=== PATIENT | male | born 1975 | race Caucasian/White ===

== ENCOUNTER 2023-01-02 09:16 | Emergency (ER) | payer OTHER, SELFPAY ==
[2023-01-02 09:26] VITALS: BP 129/71; PULSE 90; RESP 16; TEMP 36.4; O2SAT 99
--- NOTE | 2023-01-02 09:55 | ED.NAVMDI ---
HPI - Nausea/Vomiting/Diarrhea General Chief complaint: Nausea/Vomiting/Diarrhea Stated complaint: Abdominal Pain/Diarrhea Source: patient and RN notes reviewed Limitations: no limitations History of Present Illness HPI Narrative: Patient is a 47-year-old male who presents to the [facility] with complaints of abdominal cramping and diarrhea for the past 4 days. Patient states that he experienced a low-grade fever of 99.4? F and nausea on the 1st day but has not had any nausea since. He denies vomiting. Denies recent fevers. Denies urinary complaints. Denies blood in the stool. Patient states that the abdominal cramping is intermittent but moderately severe when present. He reports multiple episodes of diarrhea. States that his stool is now green. He reports history of IBS and colitis. States that last time he had similar symptoms he was diagnosed with colitis and prescribed Flagyl. Patient states that the symptoms were much improved after taking the medication. Related Data Home Medications Medication Instructions Recorded Confirmed aspirin 81 mg tablet,delayed 81 mg PO DAILY 01/02/23 01/02/23 release citalopram 20 mg tablet 30 mg PO DAILY 01/02/23 01/02/23 diltiazem HCl 120 mg 120 mg PO DAILY 01/02/23 01/02/23 capsule,extended release 24 hr, controlled (DILT-XR) enalapril maleate 10 mg tablet 10 mg PO DAILY 01/02/23 01/02/23 omeprazole 20 mg capsule,delayed 20 mg PO BID 01/02/23 01/02/23 release rosuvastatin 20 mg tablet 20 mg PO HS 01/02/23 01/02/23 sildenafil 50 mg tablet 50 mg PO PRN PRN Erectile 01/02/23 01/02/23 Dysfunction sirolimus 0.5 mg tablet 0.5 mg PO EVERY OTHER DAY 01/02/23 01/02/23 tacrolimus 0.5 mg capsule, 0.5 mg PO BID 01/02/23 01/02/23 immediate-release ticagrelor 90 mg tablet (Brilinta) 90 mg PO BID 01/02/23 01/02/23 Allergies Allergy/AdvReac Type Severity Reaction Status Date / Time Penicillins Allergy Unknown Rash Verified 01/02/23 09:32 Review of Systems Review of Systems: CONSTITUTIONAL: Denies fever, chills, or sweats. EYES: Denies visual changes, redness, or discharge. ENT: Denies otalgia and sore throat CARDIOVASCULAR: Denies chest pain, palpitations, or edema. RESPIRATORY: Denies cough or dyspnea. GASTROINTESTINAL: Reports abdominal pain and diarrhea. Denies nausea and vomiting. GENITOURINARY: Denies dysuria or hematuria. SKIN: Denies rash or itching. MUSCULOSKELETAL: Denies back pain, joint pain, or myalgia. NEUROLOGIC: Denies headache, numbness, or weakness. Pertinent positives per HPI. PMFSH Comments At the time of my signature, I reviewed and agree with the nursing past medical, surgical, social, and family history. There is no relevant family history pertinent to the patient complaint. Exam Narrative: GENERAL: This is a well-nourished, well-developed patient, in no apparent distress. HEAD: normocephalic, atraumatic. EYES: Sclera clear/white. Vision is grossly intact. EARS: External ears normal, auditory canals clear and without drainage. Hearing grossly intact. NOSE: External nose normal with no obvious nasal discharge, nares without redness, no rhinorrhea. THROAT: Mucous membranes moist, posterior pharynx clear. NECK: Neck supple, non-tender without lymphadenopathy, masses or thyromegaly. CARDIOVASCULAR: Regular rate and rhythm without murmurs, gallops, or rubs. RESPIRATORY: Clear to auscultation. Breath sounds equal bilaterally. No wheezes, rales, or rhonchi. GASTROINTESTINAL: Abdomen soft, non-tender, nondistended. Bowel sounds are hyperactive. No hepato-splenomegaly, or palpable masses. No guarding. SKIN: warm, intact with no suspicious lesions or rash, good texture and turgor. NEURO: awake, alert, and oriented to person, place and time. There were no obvious focal neurologic abnormalities. BACK: Nontender without deformity or crepitance. No flank tenderness. Course Course Level of Care: Express Care Visit Vital Signs Vital signs: Vital Sign
== END 2023-01-02 09:58 | disposition home or self-care (01) ==
PROVIDERS: Emergency Provider Nurse Practitioner; PCP Internal Medicine
DX: K52.9 Noninfective gastroenteritis and colitis, unspecified (principal); E78.00 Pure hypercholesterolemia, unspecified; I10 Essential (primary) hypertension; K21.9 Gastro-esophageal reflux disease without esophagitis; Z94.1 Heart transplant status; F41.9 Anxiety disorder, unspecified; Z79.82 Long term (current) use of aspirin
CPT/HCPCS: 99203; G0463

== ENCOUNTER 2023-05-29 13:27 | Emergency (ER) | payer OTHER, SELFPAY ==
[2023-05-29 13:33] VITALS: BP 129/71; PULSE 77; RESP 18; TEMP 36.6; O2SAT 96
[2023-05-29 13:48] VITALS: BP 129/71; PULSE 77; RESP 18; TEMP 36.6; O2SAT 96
--- NOTE | 2023-05-29 13:49 | ED.URI ---
HPI - URI/Sore Throat General Chief Complaint: Upper Respiratory Infection Stated Complaint: cough /chest hills Time Seen by Provider: 05/29/23 13:49 Source: patient, RN notes reviewed and old records reviewed Mode of arrival: ambulatory Limitations: no limitations History of Present Illness HPI Narrative: 48 year old male presents to express care with complaints of 2 week duration of cough, patient denies any shortness of breath at rest but admits to some with exertion, states chest hills with cough.amd he has noted some wheezing. Patient reports that he is taking Clindamycin for dental extractions of 6 teeth which was done 2 days ago. Patient reports that initially he had nasal congestion and drainage but that has improved, denies any fevers. or body aches. Patient states that he is scheduled to have coronary stents placed on June 12 at [facility]. Patient had heart transplant in 2004 and is on antirejection medications. MD elicited complaint: cough Pertinent past history: immunosuppression and other (heart transplant, cardiac stents) Onset (ago): week(s) (2) Able to tolerate fluids by mouth: Yes Treatments prior to arrival: other (Presently taking clindamycin for tooth extraction, inhalers as prescribed.) Related Data Home Medications Medication Instructions Recorded Confirmed aspirin 81 mg tablet,delayed 81 mg PO DAILY 01/02/23 05/29/23 release citalopram 20 mg tablet 30 mg PO DAILY 01/02/23 05/29/23 diltiazem HCl 120 mg 120 mg PO DAILY 01/02/23 05/29/23 capsule,extended release 24 hr, controlled (DILT-XR) enalapril maleate 10 mg tablet 10 mg PO DAILY 01/02/23 05/29/23 omeprazole 20 mg capsule,delayed 20 mg PO BID 01/02/23 05/29/23 release rosuvastatin 20 mg tablet 20 mg PO HS 01/02/23 05/29/23 sildenafil 50 mg tablet 50 mg PO PRN PRN Erectile 01/02/23 05/29/23 Dysfunction sirolimus 0.5 mg tablet 0.5 mg PO EVERY OTHER DAY 01/02/23 05/29/23 tacrolimus 0.5 mg capsule, 0.5 mg PO BID 01/02/23 05/29/23 immediate-release ticagrelor 90 mg tablet (Brilinta) 90 mg PO BID 01/02/23 05/29/23 albuterol sulfate 90 mcg/actuation See Rx Instructions .Route 05/29/23 05/29/23 aerosol inhaler .COMPLEX PRN sob clindamycin HCl 150 mg capsule See Rx Instructions .Route .COMPLEX 05/29/23 05/29/23 Allergies Allergy/AdvReac Type Severity Reaction Status Date / Time Penicillins Allergy Unknown Rash Verified 05/29/23 13:34 Review of Systems Review of Systems: CONSTITUTIONAL: Denies malaise, chills, sweats, or fever. EYES: Denies visual changes, redness, or discharge. ENT: Reports rhinorrhea, congestion, sinus pain,no otalgia and no sore throat. CARDIOVASCULAR: Denies chest pain, palpitations, or edema. RESPIRATORY: Reports cough.? Denies dyspnea at rest, reports dyspnea with exertion, states chest hills with cough GASTROINTESTINAL: Denies abdominal pain, nausea, vomiting, diarrhea SKIN: Denies rash or itching. MUSCULOSKELETAL: Denies myalgia. NEUROLOGIC: Denies headache. All systems reviewed & are unremarkable except as noted in HPI and below PMFSH Past Medical History Medical History (Updated 05/30/23 @ 20:07 by Hilda Beard NP) Anxiety Asthma Elevated cholesterol GERD (gastroesophageal reflux disease) Hypertension Irritable bowel Surgical History Surgical History (Updated 05/30/23 @ 20:05 by Hilda Beard NP) Heart transplanted 2004 History of heart artery stent Social History Social History (Updated 05/30/23 @ 20:07 by Hilda Beard NP) Smoking packs per day: 1 Smoking cigarettes per day: 20.0 Years smoked: 3 Smoking pack-years: 3.00 Smoking status: Current every day smoker Alcohol intake: current Alcohol use details: rare social Substance use type: does not use Gender identity (if verbalized by the patient): Male Comments At time of signature, agree with nursing past medical, surgical, social and family history. There is no relevant family histor
== END 2023-05-29 14:20 | disposition home or self-care (01) ==
PROVIDERS: Emergency Provider Registered Nurse; PCP Internal Medicine
DX: J40 Bronchitis, not specified as acute or chronic (principal); F17.210 Nicotine dependence, cigarettes, uncomplicated; J45.909 Unspecified asthma, uncomplicated; E78.00 Pure hypercholesterolemia, unspecified; K21.9 Gastro-esophageal reflux disease without esophagitis; I10 Essential (primary) hypertension; Z94.1 Heart transplant status; Z79.82 Long term (current) use of aspirin
CPT/HCPCS: 99213; G0463

== ENCOUNTER 2023-12-05 08:31 | Emergency (ER) | payer OTHER, SELFPAY ==
[2023-12-05 08:45] VITALS: BP 111/76; PULSE 81; RESP 16; TEMP 36.6; O2SAT 100
--- NOTE | 2023-12-05 08:54 | ED.DENTAL ---
HPI - Dental/Oral General Chief complaint: Dental/Oral Stated complaint: Swollen tongue Source: patient, RN notes reviewed and old records reviewed Mode of arrival: ambulatory Limitations: no limitations History of Present Illness HPI Narrative: 48 year old male presents to express care with complaints of noting his tongue to be swollen this morning with right side greater than left. Patient reports that he is not having any difficulty swallowing or any difficulty breathing. Patient reports that the only thing new that he can think of was he tried some Guacamole last night. Patient denies any cough or any sinus congestion or drainage, no sore throat or any ear pain. Patient reports that he is scheduled for routine heart cath procedure on the for evaluation of his transplanted heart which was received in 2004. Patient is edentulous no trismus or Uzair angina noted. Onset (ago): hour(s) (this morning) Duration: constant Treatment prior to arrival: none Related Data Home Medications Medication Instructions Recorded Confirmed aspirin 81 mg tablet,delayed 81 mg PO DAILY 01/02/23 05/29/23 release citalopram 20 mg tablet 30 mg PO DAILY 01/02/23 05/29/23 diltiazem HCl 120 mg 120 mg PO DAILY 01/02/23 05/29/23 capsule,extended release 24 hr, controlled (DILT-XR) enalapril maleate 10 mg tablet 10 mg PO DAILY 01/02/23 05/29/23 omeprazole 20 mg capsule,delayed 20 mg PO BID 01/02/23 05/29/23 release rosuvastatin 20 mg tablet 20 mg PO HS 01/02/23 05/29/23 sildenafil 50 mg tablet 50 mg PO PRN PRN Erectile 01/02/23 05/29/23 Dysfunction sirolimus 0.5 mg tablet 0.5 mg PO EVERY OTHER DAY 01/02/23 05/29/23 tacrolimus 0.5 mg capsule, 0.5 mg PO BID 01/02/23 05/29/23 immediate-release ticagrelor 90 mg tablet (Brilinta) 90 mg PO BID 01/02/23 05/29/23 albuterol sulfate 90 mcg/actuation See Rx Instructions .Route 05/29/23 05/29/23 aerosol inhaler .COMPLEX PRN sob Allergies Allergy/AdvReac Type Severity Reaction Status Date / Time Penicillins Allergy Unknown Rash Verified 05/29/23 13:34 Review of Systems Review of Systems: CONSTITUTIONAL: Denies fever, chills, or sweats. EYES: Denies visual changes, redness, or discharge. ENT: Denies rhinorrhea, congestion, sore throat, or otalgia.tongue swelling sine this morning CARDIOVASCULAR: Denies chest pain, palpitations, or edema. RESPIRATORY: Denies cough or dyspnea. GASTROINTESTINAL: Denies abdominal pain, nausea, vomiting, or diarrhea. GENITOURINARY: Denies dysuria or hematuria. SKIN: Denies rash or itching. MUSCULOSKELETAL: Denies back pain, joint pain, or myalgia. NEUROLOGIC: Denies headache, numbness, or weakness. PSYCHIATRIC: Positive for history of anxiety or depression. All systems reviewed & are unremarkable except as noted in HPI and below PMFSH Past Medical History Medical History (Updated 12/06/23 @ 00:00 by Noemy Bermudez) Anxiety Asthma Elevated cholesterol GERD (gastroesophageal reflux disease) Hypertension Irritable bowel Leukemia Surgical History Surgical History (Updated 05/30/23 @ 20:05 by Hilda Beard NP) Heart transplanted 2004 History of heart artery stent Social History Social History (Updated 05/30/23 @ 20:07 by Hilda Beard NP) Smoking packs per day: 1 Smoking cigarettes per day: 20.0 Years smoked: 3 Smoking pack-years: 3.00 Smoking status: Current every day smoker Alcohol intake: current Alcohol use details: rare social Substance use type: does not use Gender identity (if verbalized by the patient): Male Comments At time of signature, agree with nursing past medical, surgical, social and family history. There is no relevant family history pertinent to the presenting complaint Exam Narrative: GENERAL: Well-appearing, well-nourished, and in no acute distress. HEAD: Normocephalic, atraumatic. EYES: PERRLA and EOMI. ENT: Nares clear, no rhinorrhea or epistaxis. Mucous membranes moist.TM's charlette
== END 2023-12-05 09:25 | disposition home or self-care (01) ==
PROVIDERS: Emergency Provider Registered Nurse; PCP Internal Medicine
DX: K14.9 Disease of tongue, unspecified (principal); F17.200 Nicotine dependence, unspecified, uncomplicated; J45.909 Unspecified asthma, uncomplicated; E78.00 Pure hypercholesterolemia, unspecified; I10 Essential (primary) hypertension; F41.9 Anxiety disorder, unspecified; F32.A Depression, unspecified; Z79.82 Long term (current) use of aspirin; Z94.1 Heart transplant status; Z95.5 Presence of coronary angioplasty implant and graft; C95.90 Leukemia, unspecified not having achieved remission
CPT/HCPCS: 99213; G0463

== ENCOUNTER 2024-02-15 10:18 | Emergency (ER) | payer OTHER, SELFPAY ==
[2024-02-15 10:30] VITALS: BP 107/70; PULSE 76; RESP 18; TEMP 36.8; O2SAT 99
--- NOTE | 2024-02-15 10:40 | ED.URI ---
HPI - URI/Sore Throat General Chief Complaint: Upper Respiratory Infection Stated Complaint: throat/chills History of Present Illness HPI Narrative: 49y/o male presented for complaint of sore throat and chills for about 4 days. Endorses painful swallow, able to maintain secretions. Denies sinus congestion, cough, nausea, vomiting, diarrhea or lethargy. Took tylenol. Related Data Home Medications Medication Instructions Recorded Confirmed aspirin 81 mg tablet,delayed 81 mg PO DAILY 01/02/23 02/15/24 release citalopram 20 mg tablet 30 mg PO DAILY 01/02/23 02/15/24 diltiazem HCl 120 mg 120 mg PO DAILY 01/02/23 02/15/24 capsule,extended release 24 hr, controlled (DILT-XR) enalapril maleate 10 mg tablet 10 mg PO DAILY 01/02/23 02/15/24 omeprazole 20 mg capsule,delayed 20 mg PO BID 01/02/23 02/15/24 release rosuvastatin 20 mg tablet 20 mg PO HS 01/02/23 02/15/24 sildenafil 50 mg tablet 50 mg PO PRN PRN Erectile 01/02/23 02/15/24 Dysfunction sirolimus 0.5 mg tablet 0.5 mg PO EVERY OTHER DAY 01/02/23 02/15/24 tacrolimus 0.5 mg capsule, 0.5 mg PO BID 01/02/23 02/15/24 immediate-release ticagrelor 90 mg tablet (Brilinta) 90 mg PO BID 01/02/23 02/15/24 albuterol sulfate 90 mcg/actuation See Rx Instructions .Route 05/29/23 02/15/24 aerosol inhaler .COMPLEX PRN sob Allergies Allergy/AdvReac Type Severity Reaction Status Date / Time Penicillins Allergy Unknown Rash Verified 02/15/24 10:30 Review of Systems Review of Systems: CONSTITUTIONAL: reports fever, chills EYES: Denies visual changes, redness, or discharge. ENT: Denies rhinorrhea, congestion, or otalgia.Reports sore throat CARDIOVASCULAR: Denies chest pain, palpitations, or edema. RESPIRATORY: Denies dyspnea. GASTROINTESTINAL: Denies abdominal pain, nausea, vomiting, or diarrhea. SKIN: Denies rash, itching, or wounds. MUSCULOSKELETAL: Denies back pain, joint pain, or myalgia. NEUROLOGIC: Denies headache PMFSH Past Medical History Medical History Anxiety Asthma Elevated cholesterol GERD (gastroesophageal reflux disease) Hypertension Irritable bowel Leukemia Surgical History Surgical History Heart transplanted 2004 History of heart artery stent Social History Social History Smoking packs per day: 1 Smoking cigarettes per day: 20.0 Years smoked: 3 Smoking pack-years: 3.00 Smoking status: Current every day smoker Alcohol intake: current Alcohol use details: rare social Substance use type: does not use Gender identity (if verbalized by the patient): Male Exam Narrative: GENERAL: well-appearing, no acute distress. EYES: conjunctivae clear ENT: Mucous membranes moist. TM unable to visualize bilaterally due to excess cerumen; no tragal tenderness. Oropharynx severely erythematous, Tonsils enlarged 2+ without exudate. No drooling, no hoarseness, no trismus, uvula midline. No tripod positioning, hot potato voice, or soft palate swelling. NECK: Supple. No lymphadenopathy CHEST: Clear to auscultation, breath sounds equal. No respiratory distress, speaks in full sentences. HEART: Regular rate and rhythm. No murmur heard. SKIN: Warm, dry, no rash. NEURO: Alert and oriented x3. Course Course Emergency Course: Patient is aware of diagnosis, understands and agrees to treatment plan. Anticipatory guidance given. Patient agrees to follow-up as directed and is aware of reasons to seek care at the emergency department. Portions of this record may have been created with voice recognition software Level of Care: Express Care Visit MDM - URI/Sore Throat MDM Narrative Medical decision making narrative: POS strep result reviewed with pt. Advise supportive treatments. Patient is appropriate for outpatient treatment and follow-up. Differential Paula
== END 2024-02-15 10:52 | disposition home or self-care (01) ==
PROVIDERS: Emergency Provider Nurse Practitioner Family; PCP Internal Medicine
DX: J02.0 Streptococcal pharyngitis (principal); F17.210 Nicotine dependence, cigarettes, uncomplicated; J45.909 Unspecified asthma, uncomplicated; K21.9 Gastro-esophageal reflux disease without esophagitis; I10 Essential (primary) hypertension; F41.9 Anxiety disorder, unspecified; Z94.1 Heart transplant status; Z95.5 Presence of coronary angioplasty implant and graft; Z85.6 Personal history of leukemia
CPT/HCPCS: 87880; 99213; G0463

== ENCOUNTER 2024-04-10 14:07 | Emergency (ER) | payer OTHER, SELFPAY ==
[2024-04-10 14:10] VITALS: BP 116/75; PULSE 78; RESP 20; TEMP 36.8; O2SAT 99
--- NOTE | 2024-04-10 14:16 | ED.URI ---
HPI - URI/Sore Throat General Chief Complaint: Upper Respiratory Infection Stated Complaint: chest cold/wheezing Time Seen by Provider: 04/10/24 14:17 Source: patient, RN notes reviewed and old records reviewed Mode of arrival: ambulatory Limitations: no limitations History of Present Illness HPI Narrative: 49 year old male who presents to express care with complaints of chest cold with cough and wheezing with cough sounding loose but he is unable to cough any thing up for the past 2 weeks.. Patient reports that he has noted some wheezing especially at night, has some head congestion also which is lingering. Patient reports that he has been taking Tylenol cold and flu and using his inhaler without resolution in his symptoms.Patient denies any body aches, recent fevers, chills or sweats. Patient reports that his has also been ill. He has had heart transplant and is on immunosuppressive medications. Patient states that his back hurts some from cough.. MD elicited complaint: cough and sore throat Pertinent past history: immunosuppression (heart transplant) Onset (ago): week(s) (2) Consistency: constant Severity: moderate Able to tolerate fluids by mouth: Yes Exacerbating factors: other (cough) Treatments prior to arrival: other (Tylenol cold and flu and inhaler) Related Data Home Medications Medication Instructions Recorded Confirmed aspirin 81 mg tablet,delayed 81 mg PO DAILY 01/02/23 04/10/24 release citalopram 20 mg tablet 30 mg PO DAILY 01/02/23 04/10/24 diltiazem HCl 120 mg 120 mg PO DAILY 01/02/23 04/10/24 capsule,extended release 24 hr, controlled (DILT-XR) enalapril maleate 10 mg tablet 10 mg PO DAILY 01/02/23 04/10/24 omeprazole 20 mg capsule,delayed 20 mg PO BID 01/02/23 04/10/24 release rosuvastatin 20 mg tablet 20 mg PO HS 01/02/23 04/10/24 sildenafil 50 mg tablet 50 mg PO PRN PRN Erectile 01/02/23 04/10/24 Dysfunction sirolimus 0.5 mg tablet 0.5 mg PO EVERY OTHER DAY 01/02/23 04/10/24 tacrolimus 0.5 mg capsule, 0.5 mg PO BID 01/02/23 04/10/24 immediate-release ticagrelor 90 mg tablet (Brilinta) 90 mg PO BID 01/02/23 04/10/24 albuterol sulfate 90 mcg/actuation See Rx Instructions .Route 05/29/23 04/10/24 aerosol inhaler .COMPLEX PRN sob Allergies Allergy/AdvReac Type Severity Reaction Status Date / Time Penicillins Allergy Unknown Rash Verified 02/15/24 10:30 Review of Systems Review of Systems: CONSTITUTIONAL: Denies malaise, chills, sweats, or fever. EYES: Denies visual changes, redness, or discharge. ENT: Reports rhinorrhea, congestion, sinus pain,no otalgia and no sore throat. CARDIOVASCULAR: Denies chest pain, palpitations, or edema. RESPIRATORY: Reports cough.? Denies dyspnea.stats back hurts some from coughing GASTROINTESTINAL: Denies abdominal pain, nausea, vomiting, diarrhea SKIN: Denies rash or itching. MUSCULOSKELETAL: Denies myalgia. NEUROLOGIC: Denies headache. All systems reviewed & are unremarkable except as noted in HPI and below PMFSH Past Medical History Medical History Anxiety Asthma Elevated cholesterol GERD (gastroesophageal reflux disease) Hypertension Irritable bowel Leukemia Surgical History Surgical History Heart transplanted 2004 History of heart artery stent Social History Social History (Updated 04/11/24 @ 11:05 by Hilda Beard NP) Smoking packs per day: 1 Smoking cigarettes per day: 20.0 Years smoked: 8 Smoking pack-years: 8.00 Smoking status: Current every day smoker Alcohol intake: current Alcohol use details: rare social Substance use type: does not use Living arrangements: with family Gender identity (if verbalized by the patient): Male Comments At time of signature, agree with nursing past medical, surgical, social and family history. There is no relevant family history pertinent to
[2024-04-10 14:21] VITALS: BP 116/75; PULSE 78; RESP 20; TEMP 36.8; O2SAT 99
== END 2024-04-10 14:35 | disposition home or self-care (01) ==
PROVIDERS: Emergency Provider Registered Nurse; PCP Internal Medicine
DX: J40 Bronchitis, not specified as acute or chronic (principal); F17.210 Nicotine dependence, cigarettes, uncomplicated; J45.909 Unspecified asthma, uncomplicated; E78.00 Pure hypercholesterolemia, unspecified; K21.9 Gastro-esophageal reflux disease without esophagitis; I10 Essential (primary) hypertension; F41.9 Anxiety disorder, unspecified; Z95.5 Presence of coronary angioplasty implant and graft; Z94.1 Heart transplant status; Z85.6 Personal history of leukemia
CPT/HCPCS: 99213; G0463

== ENCOUNTER 2024-10-08 11:01 | Emergency (ER) | payer MEDICARE, MEDICAID, SELFPAY ==
--- OUTSIDE RECORDS SUMMARY | 2024-10-08 11:05 | XMS_ITS | Encounter Summary ---
Author Organization [facility] Address [address] [place] [address] Phone Care Team Providers Care Movie Projectionist Name Role Phone Abhay Plascencia MD Primary Care Provider [phone] Bhavesh Chin RN Unavailable [phone] Analilia Harris MD Unavailable [phone] Encounter Details Date Type Department Care Team (Late st Contact Info) Description 05/19/2023 Telephone [facility] Cardiology [address] [facility] 8th [place] [address] [place] [address] Avani Razo Social History Tobacco Use Types Packs/Day Years Used Date Smoking Tobacco: Every Day Cigarettes 0.5 1 Smokeless Tobacco: Never AUDIT-C Answer Date Recorded Q1: How often do you have a drink containing alc ohol? Monthly or less 05/13/2022 Q2: How many drinks containi ng alcohol do you have on a typical day when you are drinking? 1 or 2 05/13/2022 Q3: How often do you have si x or more drinks on one occasion? 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
--- OUTSIDE RECORDS SUMMARY | 2024-10-08 11:05 | XMS_ITS | Encounter Summary ---
Author Organization [facility] Address [address] [place] [address] Phone Care Team Providers Care Parcel Contractor Name Role Phone Abhay Plascencia MD Primary Care Provider Aguilar Novoa MD Unavailable Sanjay Ingram MD Unavailable Reason for Visit * Reason Comments Medication Refill Encounter Details Date Type Department Care Team (Late st Contact Info) Description 06/12/2020 Refill [facility] - Internal Medicine - [place] [address] [place] [address] Abhay Plascencia MD [address] [facility] [place] [address] Medication Refill Social History Tobacco Use Types Packs/Day Years Used Date Smoking Tobacco: Former Cigarettes Q uit: 09/16/2016 Smokeless Tobacco: Never Alcohol Use Standard Drinks/Week Comments Yes 0 (1 standard drink = 0.6 oz pur e alcohol) Socially PHQ-2 Answer Date Recorded Total Score - Questions 1-9 0 04/04 Sex and Gender Information Value Date Recorded Sex Assigned at Not on file Legal Sex Male 8:34 PM CDT Gender Identity Not on file Sexual Orientation Not on file COVID-19 Exposure Response Date Recorded In the last month, have you been in contact with someone who was confirmed or suspected to have Coronavirus / COVID-19? No / Unsure 06/05/2020 9:04 AM NETWORK SPECIALIST documented as of this encounter Miscellaneous Notes * Telephone Encounter - Jennie Donald RN - 06/12/2020 8:15 AM CST Please review and sign. ORK SPECIALIST documented in this encounter Plan of Treatment Upcoming Encounters Date Type Department Care Team (Late st Contact Info) Description 10/24/2024 9:00 AM CDT Office Visit [facility] Internal Medicine [facility] [address] [place] [id number] Abhay Plascencia MD [address] [place] [address] 11/23/2024 10:15 AM CDT Office Visit [facility] Internal [facility] [address] [place] [id number] Abhay Plascencia MD [address] [place] [address] documented as of this encounter Visit Diagnoses Not on filedocumented in this encounter Additional Health Concerns Infection Onset Date Last Indicated Resolved Time COVID - 19 09/17/2021 09/17/2021 10/07/2021 12:1 6 AM NETWORK SPECIALIST COVID - 19 12/09/2021 12/09/2021 12/29/2021 12:1 6 AM CDT COVID - 19 04/03/2022 04/03/2022 04/13/2022 12:1 6 AM CDT Assessment Noted Time PHQ-9 Depression Total Score: 0 04/30/20 2:00 PM CDT documented as of this encounter Care Teams Parcel Contractor Relationship Specialty Start Date End Date Abhay Plascencia MD [address] [place] [address] PCP - General Internal Medicine 06/26/15 Aguilar Novoa MD [address] [facility] [address] [place] [address] Consulting Physician General Surgery 11/11/21 Sanjay Ingram MD [address] [facility] [address] [place] [address] Consulting Physician Colon and Rectal Surgery 04/16/22 documented as of this encounter
--- OUTSIDE RECORDS SUMMARY | 2024-10-08 11:05 | XMS_ITS | Encounter Summary ---
Author Organization [facility] Address [address] [place] [address] Phone Care Team Providers Care Weight Recorder Name Role Phone Abhay Plascencia MD Primary Care Provider [phone] Aguilar Novoa MD Unavailable [phone] Sanjay Ingram MD Unavailable Encounter Details Date Type Department Care Team (Late st Contact Info) Description 01/11/2021 Transcribe Orders [facility] Admitting 1 [place] [address] Doron Valadez MD [address] [address] History of heart transplant (HCC) (Primary Dx) Social History Tobacco Use Types Packs/Day Years Used Date Smoking Tobacco: Former Cigarettes Q uit: 09/16/2016 Smokeless Tobacco: Never Alcohol Use Standard Drinks/Week Comments Yes 0 (1 standard drink = 0.6 oz pur e alcohol) Socially PHQ-2 Answer Date Recorded Total Score - Questions 1-9 0 04/04 Sexually Active Control Partners Comments Not Currently Sex and Gender Information Value Date Recorded Sex Assigned at Not on file Legal Sex Male 8:34 PM CDT Gender Identity Not on file Sexual Orientation Not on file COVID-19 Exposure Response Date Recorded In the last month, have you been in contact with someone who was confirmed or suspected to have Coronavirus / COVID-19? No / Unsure 01/09/2021 10:14 AM CDT documented as of this encounter Plan of Treatment Upcoming Encounters Date Type Department Care Team (Late st Contact Info) Description 10/24/2024 9:00 AM CDT Office Visit [facility] Internal [facility] [address] [place] [address] Abhay Plascencia MD [address] [place] [address] 11/23/2024 10:15 AM CDT Office Visit [facility] [address] [place] [address] Abhay Plascencia MD [address] [place] [address] documented as of this encounter Results * (ABNORMAL) BASIC METABOLIC PANEL W/ CALCIUM TOTAL (01/22/2021 9:46 AM CDT) SODIUM 136 136 - 144 mmol/L 01/22/2021 10:28 AM CDT [facility] POTASSIUM 4.2 3.5 - 5.1 mmol/L 01/22/2021 10:28 AM CDT [facility] CHLORIDE 103 100 - 110 mmol/L 01/22/2021 10:28 AM CDT [facility] CO2, VENOUS 26 22 - 32 mmol/L 01/22/2021 10:28 AM CDT [facility] ANION GAP 11.2 8.0 - 20.0 mmol/L 01/22/2021 10:28 AM CDT [facility] GLUCOSE 105(H) 70 - 99 mg/dL 01/22/2021 10:28 AM CDT [facility] BUN 7 6 - 20 mg/dL 01/22/2021 10:28 AM CDT [facility] CREATININE, BLOOD 0.85 0.80 - 1.30 mg/dL 01/22/2021 10:28 AM CDT [facility] BUN/CREATININE RATIO 8(L) 12 - 20 ratio 01/22/2021 10:28 AM CDT [facility] CALCIUM 9.4 8.9 - 10.3 mg/dL 01/22/2021 10:28 AM CDT [facility] GFR, EST. NONAFRICAN >60 >=60 01/22/2021 10:28 AM CDT [facility] GFR, EST. >60 >=60 01/22/2021 10:28 AM CDT [facility] Comment: Creatinine Clearance is the preferred criteria for selecting drug dose adjustments in renally impaired patients. The GFR is provided as additional pertinent clinical information. GFR is reported in mL/min/1.73 sq m. IS THE PATIENT REQUIRED TO BE FASTING? 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 COVID - 19 12/09/2021 12/09/2021 12/29/2021 12:1 6 AM CDT COVID - 19 04/03/2022 04/03/2022 04/13/2022 12:1 6 AM CDT Assessment Noted Time PHQ-9 Depression Total Score: 0 04/30/20 20 2:00 PM CDT documented as of this encounter Care Teams Weight Recorder Relationship Specialty Start Date End Date Abhay Plascencia MD [address] [place] [address] PCP - General Internal Medicine 06/26/15 Aguilar Novoa MD [address] [address] Consulting Physician General Surgery 11/11/21 Sanjay Ingram MD [address] [address] Consulting Physician Colon and Rectal Surgery 04/16/22 documented as of this encounter
--- OUTSIDE RECORDS SUMMARY | 2024-10-08 11:05 | XMS_ITS | Encounter Summary ---
Author Organization [facility] Address [address] [place] [address] Care Team Providers Care Vehicle Care Specialist Name Role Phone Abhay Plascencia MD Primary Care Provider [phone] Bhavesh Chin RN Unavailable [phone] Analilia Harris MD Unavailable [phone] Encounter Details Date Type Department Care Team (Late st Contact Info) Description 01/19/2023 Telephone [facility] [address] [facility] [address] [place] [address] Abhay Plascencia MD [address] [place] [address] Social History Tobacco Use Types Packs/Day Years [...] on file 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
--- OUTSIDE RECORDS SUMMARY | 2024-10-08 11:05 | XMS_ITS | Encounter Summary ---
Author Organization [facility] Address [address] [place] [address] Phone Care Team Providers Care Community Organization Director Name Role Phone Abhay Plascencia MD Primary Care Provider Aguilar Novoa MD Unavailable Sanjay Ingram MD Unavailable Reason for Visit * Reason Comments Medication Refill Encounter Details Date Type Department Care Team (Late st Contact Info) Description 10/22/2020 Refill [facility] - [facility] Medicine - [place] [address] [place] [address] Abhay Plascencia MD [address] [facility] [place] [address] Medication Refill Social History Tobacco [...] have Coronavirus / COVID-19? 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 documented in this encounter Plan of Treatment Upcoming Encounters Date Type Department Care Team (Late st Contact Info) Description 10/24/2024 9:00 AM CDT Office Visit [facility] Internal [facility] [address] [place] [address] Abhay Plascencia MD [address] [place] [address] 11/23/2024 10:15 AM CDT Office Visit [facility] [address] [place] [address] Abhay Plascencia MD [address] [place] [address] documented as of this encounter Visit Diagnoses Not on filedocumented in this encounter Additional Health Concerns Infection Onset Date Last Indicated Resolved Time COVID - 19 09/17/2021 09/17/2021 10/07/2021 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 COVID - 19 12/09/2021 12/09/2021 12/29/2021 12:1 6 AM CDT COVID - 19 04/03/2022 04/03/2022 04/13/2022 12:1 6 AM CDT Assessment Noted Time PHQ-9 Depression Total Score: 0 04/30/20 2:00 PM CDT documented as of this encounter Care Teams Community Organization Director Relationship Specialty Start Date End Date Abhay Plascencia MD [address] [place] [address] PCP - General Internal Medicine 06/26/15 Aguilar Novoa MD [address] [facility] [address] Consulting Physician General Surgery 11/11/21 Sanjay Ingram MD [address] [address] Consulting Physician Colon and Rectal Surgery 04/16/22 documented as of this encounter
--- OUTSIDE RECORDS SUMMARY | 2024-10-08 11:05 | XMS_ITS | Encounter Summary ---
Author Organization [facility] Address [address] [place] [address] Phone Care Team Providers Care Check Writer Salesperson Name Role Phone Abhay Plascencia MD Primary Care Provider Aguilar Novoa MD Unavailable [phone] Sanjay Ingram MD Unavailable Encounter Details Date Type Department Care Team (Latest Contact Info) Description 12/18/2021 Transcribe Orders [facility] Patient Access Admitting 1 [place] [address] Valentino Pickens MD [address] [address] Heart replaced by transplant (HCC) (Primary Dx); High risk medication use Social History Tobacco Use Types Packs/Day Years Used Date Smoking Tobacco: Every Day Cigarettes Smokeless Tobacco: Never Alcohol Use Standard Drinks/Week Comments Not Currently 0 (1 standard drink = 0.6 oz pur e alcohol) Socially PHQ-2 Answer Date Recorded Total Score - Questions 1-9 0 06/03 Sexually Active Control Partners Comments Not Currently Sex and Gender Information Value Date Recorded Sex Assigned at Not on file Legal Sex Male 8:34 PM CDT Gender Identity Not on file Sexual Orientation Not on file COVID-19 Exposure Response Date Recorded In the last 10 days, have yo u been in contact with someone who was confirmed or suspected to have Coronavirus/COVID-19? No / Unsure 12/09/2021 10:22 AM CDT documented as of this encounter Plan of Treatment Upcoming Encounters Date Type Department Care Team (Late st Contact Info) Description 10/24/2024 9:00 AM CDT Office Visit [facility] Internal Medicine [facility] [address] [place] [address] Abhay Plascencia MD [address] [facility] [place] [address] 11/23/2024 10:15 AM CDT Office Visit [facility] [address] [place] [address] Abhay Plascencia MD [address] [place] [address] Scheduled Orders Name Type Priority Associated Diagnoses Orde r Schedule TACROLIMUS Lab Routine Heart replaced by transplant (HCC) High risk medication use Expected: 12/18/2021, Expires: 12/18/2022 COMPLETE BLOOD COUNT (CBC) WITH DIFF Lab Routine Heart replaced by transplant (HCC) High risk medication use Expected: 12/18/2021, Expires: 12/18/2022 BASIC METABOLIC PANEL W/ CALCIUM TOTAL Lab Routine Heart replaced by transplant (HCC) High risk medication use Expected: 12/18/2021, Expires: 12/18/2022 documented as of this encounter Visit Diagnoses Diagnosis Heart replaced by transplant (HCC)- Primary Heart replaced by transplant High risk medication use Encounter for long-term (current) use of other medications documented in this encounter Additional Health Concerns Infection Onset Date Last Indicated Resolved Time COVID - 19 12/09/2021 12/09/2021 12/29/2021 12:1 6 AM CDT COVID - 19 04/03/2022 04/03/2022 04/13/2022 12:1 6 AM CDT Assessment Noted Time PHQ-9 Depression Total Score: 0 06/13/20 21 11:00 AM VISION 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
--- OUTSIDE RECORDS SUMMARY | 2024-10-08 11:05 | XMS_ITS | Encounter Summary ---
Author Organization [facility] Address [address] [place] [address] Phone Care Team Providers Care Beam Worker Name Role Phone Abhay Plascencia MD Primary Care Provider Aguilar Novoa MD Unavailable [phone] Sanjay Ingram MD Unavailable Reason for Visit * Reason Comments Medication Refill Encounter Details Date Type Department Care Team (Late st Contact Info) Description 10/30/2022 Refill [facility] - Internal Medicine - [place] [address] [place] [address] Abhay Plascencia MD [address] [facility] [place] [address] Medication Refill Social History Tobacco Use Types Packs/Day Years Used Date Smoking Tobacco: Every Day Cigarettes 2 33.2 Started: 1991 Passive Smoke Exposure: Current Smokeless Tobacco: Never Comments:Quit for 5 years bu t started again Alcohol Use Standard Drinks/Week Comments Not Currently 0 (1 standard drink = 0.6 oz pure alcohol) Socially 2-3 drinks Keiry Landaverde PHQ-2 Answer Date Recorded Total Score - Questions 1-9 6 03/03 Education Answer Date Recorded What is the highest level of school you have completed or the highest degree you have received? 12th grade 10/13/2022 Sexually Active Control Partners Comments Yes Female Sex and Gender Information Value Date Recorded Sex Assigned at Not on file Legal Sex Male 8:34 PM CDT Gender Identity Not on file Sexual Orientation Not on file COVID-19 Exposure Response Date Recorded In the last 10 days, have yo u been in contact with someone who was confirmed or suspected to have Coronavirus/COVID-19? No / Unsure 10/14/2022 1:54 PM CDT documented as of this encounter Plan of Treatment Upcoming Encounters Date Type Department Care Team (Late st Contact Info) Description 10/24/2024 9:00 AM CDT Office Visit [facility] Internal [facility] [address] [facility] [place] [address] Abhay Plascencia MD [address] [facility] [place] [address] 11/23/2024 10:15 AM CDT Office Visit [facility] [address] [place] [address] Abhay Plascencia MD [address] [place] [address] documented as of this encounter Visit Diagnoses Not on filedocumented in this encounter Additional Health Concerns Assessment Noted Time PHQ-9 Depression Total Score: 6 03/19/20 22 1:32 PM CDT documented as of this encounter Care Teams Beam Worker Relationship Specialty Start Date End Date Abhay Plascencia MD [address] [place] [address] PCP - General Internal Medicine 06/26/15 Aguilar Novoa MD [address] [address] Consulting Physician General Surgery 11/11/21 Sanjay Ingram MD [address] [address] Consulting Physician Colon and Rectal Surgery 04/16/22 documented as of this encounter
--- OUTSIDE RECORDS SUMMARY | 2024-10-08 11:05 | XMS_ITS | Encounter Summary ---
Author Organization [facility] Address [address] [place] [address] Phone Care Team Providers Care Route Jumper Name Role Phone Abhay Plascencia MD Primary Care Provider [phone] Bhavesh Chin RN Unavailable [phone] Analilia Harris MD Unavailable [phone] Encounter Details Date Type Department Care Team (Late st Contact Info) Description 12/03/2022 Telephone [facility] Cardiology [address] [facility] Advanced Medicine 8th [place] [address] [place] [address] Missael Fuentes MD [address] [place] [address] Social History Tobacco Use Types Packs/Day Years [...] on file 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
--- OUTSIDE RECORDS SUMMARY | 2024-10-08 11:05 | XMS_ITS | Encounter Summary ---
Author Organization [facility] Address [address] [place] [address] Phone Care Team Providers Care Manufacturing Maintenance Mechanic Name Role Phone Abhay Plascencia MD Primary Care Provider [phone] Aguilar Novoa MD Unavailable [phone] Sanjay Ingram MD Unavailable Reason for Visit * Reason Comments Medication Refill Encounter Details Date Type Department Care Team (Late st Contact Info) Description 10/03/2023 Refill [facility] - Internal Medicine - [place] [address] [place] [address] Abhay Plascencia MD [address] [facility] [place] [address] Medication Refill Social History Tobacco Use Types Packs/Day Years Used Date Smoking Tobacco: Former Cigarettes 2 31.8 1 992 - 06/07/2023 Passive Smoke Exposure: Current Smokeless Tobacco: Never Comments:Quit for 5 years bu t started again Alcohol Use Standard Drinks/Week Comments Not Currently 0 (1 standard drink = 0.6 oz pure alcohol) Socially 2-3 drinks [place] Hard Lemonades [facility] Utilities Answer Date Recorded In the past 12 months has [employer] electric, gas, oil, or water company threatened to shut off services in your home? No 09/09/2023 Social Connection and Isolat ion Panel [NHANES] Answer Date Recorded In a typical week, how many times do you talk on the phone with family, friends, or neighbors? More than three times a week 09/09/2023 How often do you get togethe r with friends or relatives? More than three times a week 09/09/2023 How often do you attend chur ch or confucianist services? Never 09/09/2023 Do you belong to any clubs o r organizations such as congregational groups, unions, fraternal or athletic groups, or school groups? No 09/09/2023 How often do you attend meet ings of the clubs or organizations you belong to? Never 09/09/2023 Are you , , di vorced, , never , or living with a partner? 09/09/2023 AUDIT-C Answer Date Recorded Q1: How often do you have a drink containing alcohol? Never 09/09/2023 Q2: How many drinks containi ng alcohol do you have on a typical day when you are drinking? Patient does not drink Q3: How often do you have si x or more drinks on one occasion? Never 09/09/2023 Overall Financial Resource Strain (CARDIA) Answe r Date Recorded How hard is it for you to pa y for the very basics like food, housing, medical care, and heating? Not hard at all 09/09/2023 PHQ-2 Answer Date Recorded Total Score - Questions 1-9 0 02/2024 [facility] - Occupational Stress Questionnaire Answer Date Recorded Do you feel stress - tense, restless, nervous, or anxious, or unable to sleep at night because your mind is troubled all the time - these days? Not at all 09/09/2023 Exercise Vital Sign Answer Date Recorde d On average, how many days pe r week do you engage in moderate to strenuous exercise (like a brisk walk)? 0 days 09/09/2023 On average, how many minutes do you engage in exercise at this level? 0 min 09/09/2023 Hunger Vital Sign Answer Date Recorded Within the past 12 months, y ou worried that your food would run out before you got the money to buy more. Never true 09/09/19 24 Within the past 12 months, t he food you bought just didn't last and you didn't have money to get more. Never true 09/09/2023 PRAPARE - Transportation Answer Date Re corded In the past 12 months, has l ack of transportation kept you from medical appointments or from getting medications? No 02/2024 In the past 12 months, has l ack of transportation kept you from meetings, work, or from getting things needed for daily living? No 09/09/2023 Housing Stability Vital Sign Answer Jairon e Recorded In the last 12 months, was t here a time when you were not able to pay the mortgage or rent on time? No 09/09/2023 In the last 12 months, how many places have you lived? 2 09/09/2023 In the last 12 months, was t here a time when you did not have a steady place to sleep or slept in a retirement (including now)? No 09/09/2023 Education Answer Date Recorded What is the [...] on file documented as of this encounter Miscellaneous Notes * Telephone Encounter - Nicolette Byrne RN - 10/05/2023 8:15 AM CST Medication failed the protocol, provider to review and approve the medication order if appropriate. Requested Prescriptions Pending Prescriptions Disp Refills citalopram (CeleXA) 20 MG Tablet [Pharmacy Med Name: CITALOPRAM 20MG TABLETS] 135 Tablet 0 Sig: TAKE 1 AND 1/2 TABLETS BY MOUTH DAILY Citalopram (Celexa) (6 Month Refill Only) Protocol Failed - 10/03/2023 5:50 AM Failed - Has an encounter in the past 6 months with a depression, anxiety, adjustment disorder, OCD, or PTSD visit diagnosis Passed - Citalopram dose is less than or equal to 40mg / day Passed - Visit with relevant provider in past 6 months or upcoming 90 days Recent Visits Date Type Provider Dept 09/09/23 Office Visit Abhay Plascencia MD [facility] 06/08/23 Office Visit Abhay Plascencia MD [facility] [place] Showing recent visits within past 182 days and meeting all other requirements Future Appointments Date Type Provider Dept 12/09/23 Appointment Abhay Plascencia MD [facility] Showing future appointments within next 90 days and meeting all other requirements Passed - Patient has established therapy with Citalopram 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 Plan of Treatment Upcoming Encounters Date Type Department Care Team (Late st Contact Info) Description 10/24/2024 9:00 AM CDT Office Visit [facility] Internal [facility] [address] [place] [address] Abhay Plascencia MD [address] [place] [address] 11/23/2024 10:15 AM CDT [facility] [address] [place] [address] Abhay Plascencia MD [address] [place] [address] documented as of this encounter Visit Diagnoses Not on filedocumented in this encounter Additional Health Concerns Assessment Noted Time PHQ-9 Depression Total Score: 0 09/09/19 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
--- OUTSIDE RECORDS SUMMARY | 2024-10-08 11:05 | XMS_ITS | Encounter Summary ---
Author Organization [facility] Address [address] [place] [address] Phone Care Team Providers Care Cattle Inspector Name Role Phone Abhay Plascencia MD Primary Care Provider Aguilar Novoa MD Unavailable [phone] Sanjay Ingram MD Unavailable Encounter Details Date Type Department Care Team (Latest Contact Info) Description 09/10/2023 Transcribe Orders [facility] [address] [place] [address] Valentino Pickens MD [address] [address] Heart replaced by transplant (HCC) (Primary Dx) Social History Tobacco Use Types Packs/Day Years Used Date Smoking Tobacco: Former Cigarettes 2 31.8 1 992 - 06/07/2023 Passive Smoke Exposure: Current Smokeless Tobacco: Never Comments:Quit for 5 years bu t started again Alcohol Use Standard Drinks/Week Comments Not Currently 0 (1 standard drink = 0.6 oz pure alcohol) Socially 2-3 drinks Terrell Hard Lemonades [facility] Utilities Answer Date Recorded In the past 12 months has e electric, gas, oil, or water company threatened [...] often do you attend chur ch or quaker services? Never 09/09/2023 Do you belong to any clubs o r organizations such as zoroastrianism groups, unions, fraternal or athletic groups, or [...] Total Score - Questions 1-9 0 02/2024 [facility] - Occupational Stress Questionnaire Answer Date Recorded [...] place to sleep or slept in a usp (including now)? No 09/09/2023 Education Answer Date [...] Description 10/24/2024 9:00 AM CDT Office Visit [facility] Internal Medicine [facility] [address] [place] [address] Abhay Plascencia MD [address] [place] [address] 11/23/2024 10:15 AM CDT Office Visit [facility] Internal Medicine [facility] [address] [place] [address] Abhay Plascencia MD [address] [place] [address] documented as of this encounter Results * TACROLIMUS (10/02/2023 12:08 PM HARDWARE ENGINEERING MANAGER) TACROLIMUS/FK50 6 (Prograf) 5.7 ng/mL [facility] [id number] F 10/03/2023 8:12 AM HARDWARE ENGINEERING MANAGER [facility] Blood BLOOD SPECIMEN / Unknown Venipuncture / Unknown 10/02/2023 12:08 PM HARDWARE ENGINEERING MANAGER 10/02/2023 1:06 PM HARDWARE ENGINEERING MANAGER Narrative [facility] - 10/03/2023 8:12 AM HARDWARE ENGINEERING MANAGER A 12-hour tacrolimus trough level goal is patient specific and transplant specific. Trough level goals generally range from 5-15 ng/mL. If there is a question about the tacrolimus therapy or level goal, the transplant team managing the patient's tacrolimus should be contacted. us Valentino Pickens MD CHEMISTRY ORDERABLES Fin al Result Performing Organization Address City/[facility] Co de Phone Number [facility] [address] [place] [address], [place] * RAPAMYCIN (SIROLIMUS) LEVEL (10/02/2023 12:08 PM HARDWARE ENGINEERING MANAGER) RAPAMYCIN, BLOOD 4.5 4.5 - 14.0 ng/mL [facility] [id number] F 10/03/2023 12:47 PM HARDWARE ENGINEERING MANAGER [facility] Blood BLOOD SPECIMEN / Unknown Venipuncture / Unknown 10/02/2023 12:08 PM HARDWARE ENGINEERING MANAGER 10/02/2023 1:06 PM HARDWARE ENGINEERING MANAGER Narrative [facility] - 10/03/2023 12:47 PM HARDWARE ENGINEERING MANAGER Performed by [facility] [employer] us Valentino Pickens MD CHEMISTRY ORDERABLES Fin al Result Performing Organization Address City/State/[facility] Co de Phone Number [facility] [address] [place] [address], [place] documented in this encounter Visit Diagnoses Diagnosis Heart replaced by transplant (HCC)- Primary Heart replaced by transplant documented in this encounter Additional Health Concerns Assessment Noted Time PHQ-9 Depression Total Score: 0 09/09/19 24 10:39 AM HARDWARE ENGINEERING MANAGER documented as of this encounter Care Teams Cattle Inspector Relationship Specialty Start Date End Date Abhay Plascencia MD [address] [place] [address] PCP - General Internal Medicine 06/26/15 Aguilar Novoa MD [facility] [address] Consulting Physician General Surgery 11/11/21 Sanjay Ingram MD [facility] [address] Consulting Physician Colon and Rectal Surgery 04/16/22 documented as of this encounter
--- OUTSIDE RECORDS SUMMARY | 2024-10-08 11:05 | XMS_ITS | Encounter Summary ---
Author Organization [facility] Address [address] [place] [address] Phone Care Team Providers Care Cruller Maker Name Role Phone Abhay Plascencia MD Primary Care Provider Aguilar Novoa MD Unavailable [phone] Sanjay Ingram MD Unavailable Reason for Visit * Reason Comments Medication Refill Encounter Details Date Type Department Care Team (Late st Contact Info) Description 10/30/2022 Refill [facility] - Internal Medicine - [place] [address] [place] [address] Abhay Plascencia MD [address] [facility] [place] [address] Medication Refill Social History Tobacco [...] Description 10/24/2024 9:00 AM CDT Office Visit [facility] Internal [facility] [address] [facility] [place] [id number] Abhay Plascencia MD [address] [facility] [place] [address] 11/23/2024 10:15 AM CDT Office Visit [facility] [address] [place] [phone] Abhay Plascencia MD [address] [place] [address] documented as of this encounter Visit Diagnoses Not on filedocumented in this encounter Additional Health Concerns Assessment Noted Time PHQ-9 Depression Total Score: 6 03/19/20 22 1:32 PM CDT documented as of this encounter Care Teams Cruller Maker Relationship Specialty Start Date End Date Abhay Plascencia MD [address] [place] [address] PCP - General Internal Medicine 06/26/15 Aguilar Novoa MD #[address] [phone] Consulting Physician General Surgery 11/11/21 Sanjay Ingram MD #[address] [address] Consulting Physician Colon and Rectal Surgery 04/16/22 documented as of this encounter
--- OUTSIDE RECORDS SUMMARY | 2024-10-08 11:05 | XMS_ITS | Referral Summary ---
Author Organization [facility] Address [address] [place] [address] Care Team Providers Care Propagator Name Role Phone Abhay Plascencia MD Primary Care Provider [phone] Bhavesh Chin RN Unavailable [phone] Analilia Harris MD Unavailable [phone] Encounters Date Type Department Care Team Description 08/17/2024 Telephone [facility] [address] [facility] [address] [place] [address] Mami Blackmon RN Cardiac Rehab 08/16/2024 Telephone [facility] and [facility] Transplant Heart [address] [facility] [address] [facility] [id number] [place] [address] Bhavesh Chin RN 08/16/2024 8:30 AM SCALP TREATMENT OPERATOR - 08/16/2024 10:10 AM SCALP TREATMENT OPERATOR Surgery [facility] [address] [id number] Missael Fuentes MD LEFT HEART CATHETERIZATION WITH CORONARY ANGIOGRAPHY AND WITH OR WITHOUT LEFT VENTRICULOGRAM [id number] 08/16/2024 6:14 AM SCALP TREATMENT OPERATOR - 08/16/2024 2:00 PM SCALP TREATMENT OPERATOR Hospital Encounter [facility] [address] [facility] [place] [address] Missael Fuentes MD Coronary artery disease (Primary Dx); 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 8th [place] [address] [place] [id number] Missael Fuentes MD 08/01/2024 Telephone [facility] and [facility] Transplant Heart [address] [facility] [phone] [place] [address] Supa Funez from Last 3 Months Allergies Active Allergy Reactions Criticality Noted Date Comments Iodinated Contrast Media Hives Medium 05/05/2018 Penicillins Hives Medium Clopidogrel Hives Medium 11/01/2020 Medications omeprazole (PriLOSEC) 20 mg capsule Take 1 capsule (20 mg total) by mouth 2 (two) times a day 0 Active VENTOLIN HFA 90 mcg/actuation inhaler Inhale 1-2 puffs every 4 (four) hours as needed for shortness of breath 2 8 Active nicotine (NICODERM CQ) [address] 1 patch on the skin daily 30 patch 1 Active citalopram (CeleXA) 20 mg tablet Take 1 tablet (20 mg total) by mouth daily 60 tablet 2 Active dilTIAZem CD/XR/XT (dilTIAZem XR) 120 mg 24 hr capsule Take 1 capsule (120 mg total) by mouth daily 30 capsule 11 2 Active sildenafiL (VIAGRA) 50 mg tablet Take 1 tablet (50 mg total) by mouth as needed 2 Active cyanocobalamin, vitamin B-12, (VITAMIN B-12 ORAL) Take by mouth daily Active cholecalciferol , vitamin D3, (VITAMIN D3 ORAL) Take by mouth daily Active diphenhydrAMINE (BENADRYL) 25 mg capsule Take 1 tablet/capsule (25 mg total) by mouth nightly as needed for itching Active aspirin 81 mg enteric coated tablet Take 1 tablet (81 mg total) by mouth daily 90 tablet 3 3 Active enalapril (VASOTEC) 10 mg tablet TAKE 1 TABLET(10 MG) BY MOUTH DAILY 90 tablet 3 4 Active Brilinta 90 mg tablet TAKE 1 TABLET(90 MG) BY MOUTH TWICE DAILY 60 tablet 11 4 Active sirolimus (RAPAMUNE) 0.5 mg tablet TAKE 1 TABLET(0.5 MG) BY MOUTH EVERY OTHER DAY 45 tablet 3 4 Active rosuvastatin (CRESTOR) 20 mg tablet TAKE 1 TABLET(20 MG) BY MOUTH EVERY NIGHT 90 tablet 3 4 Active diphenhydrAMINE (BENADRYL) 50 mg capsuleIndicati ons:allergic reaction Take 1 tablet the night before the procedure and 1 tablet the morning of the procedure 2 capsule 5 Active famotidine (PEPCID) 20 mg tabletIndicatio ns:Contrast allergy Take 1 table the night before the procedure and 1 tablet the morning of the procedure. 2 tablet 5 Active predniSONE (DELTASONE) 50 mg tabletIndicatio ns:hypersensiti vity drug reaction Take 1 tablet the night before procedure and 1 tablet the morning of the procedure 2 tablet 5 Active tacrolimus 0.5 mg immediate-relea se capsule Take 1 capsule (0.5 mg total) by mouth 2 (two) times a day 180 capsule 3 5 Active Active Problems Problem Noted Date Diagnosed Date Encounter for aftercare following heart transpla nt 03/16/2023 Heart replaced by transplant 03/16/2023 Encounter for long-term (cur rent) use of high-risk medication 03/16/2023 Lymphadenopathy 12/10/2021 Chronic diarrhea 05/20/[address] scan, small bowel 05/20/2021 Tobacco use disorder 05/20/2021 History of cholecystectomy 05/20/2021 Cigarette nicotine dependence without complicati on 04/27/2021 Assessment & Plan (04/27/2021 6:29 AM CDT): Patient smokes about half a pack per day. He would like a nicotine patch. Dysthymia 04/27/2021 Assessment & Plan (04/27/2021 6:30 AM CDT): Can resume Celexa again when patient can take p.o.. Epigastric pain 04/26/2021 Assessment & Plan (04/27/2021 6:27 AM CDT): With diarrhea. Patient has not had any more nausea still has some epigastric abdominal discomfort with palpation. Diarrhea has improved with antibiotics. Will continue Cipro and Flagyl. C diff is negative. Stool culture are in process. Patient is NPO awaiting surgical evaluation. Patient will need to take his anti rejection medication and dual antiplatelet therapy as soon as he is able to take p.o. medication again. Coronary artery disease invo lving kasaan artery of transplanted heart without angina pectoris 11/01/2020 Assessment & Plan (04/27/2021 6:28 AM CDT): Patient has had stents placed about 6 months ago. He needs to continue with Brilinta and aspirin Abnormal stress echo 10/01/2020 Overview (10/01/2020): Added automatically from request for surgery [id number] H/O heart transplant ([facility] 10/01/2020 Overview (10/01/2020): Added automatically from request for surgery [id number] Assessment & Plan (04/27/2021 6:28 AM CDT): CellCept and Prograf for held at this time waiting for surgical evaluation. Dilated cardiomyopathy 05/06/2018 Essential hypertension 05/06/2018 Assessment & Plan (04/27/2021 6:29 AM CDT): Currently normotensive. Enalapril held due to NPO status. History of heart transplant 02/22/2018 Overview (05/06/2018): -Transplanted in 2004 for DCM after a period of HMII LVAD support. Aftercare following organ transplant 12/09/2012 High risk medication use 12/09/2012 Abdominal pain Enteritis Immunizations Immunization Administration Dates Next Due Influenza, Quadrivalent, Lillie l Culture-based MDCK, Preservative Free, Antibiotic Free, Intramuscular 05/26/2019 Influenza, Quadrivalent, Spl it, Preservative Free, Intramuscular 04/18/2018 Influenza, Unspecified 06/03/2023,05/17/2021 Tdap 11/14/2016 Social History Tobacco Use Types Packs/Day Years Used Date Smoking Tobacco: Every Day Cigarettes 0.5 1 Smokeless Tobacco: Never Tobacco Cessation:Ready to Q uit: Not Asked; Counseling Given: Not Answered AUDIT-C Answer Date Recorded Q1: How often do you have a drink containing alc ohol? Monthly or less 08/16/2024 Q2: How many drinks containi ng alcohol do you have on a typical day when you are drinking? 1 or 2 08/16/2024 Q3: How often do you have si x or more drinks on one occasion? Never 08/16/2024 Personal Safety Answer Date Recorded Have you ever been in or are you currently in a harmful physical or emotional relationship or is someone making you feel afraid or unsafe? Denies 08/16/2024 Sex and Gender Information Value Date Recorded Sex Assigned at Not on file Legal Sex Male 1:54 AM SCALP TREATMENT OPERATOR Gender Identity Not on file Sexual Orientation Not on file Last Filed Vital Signs Vital Sign Reading Time Taken Comments Blood Pressure 130/68 08/16/2024 11:45 AM SCALP TREATMENT OPERATOR Pulse 75 08/16/2024 11:45 AM SCALP TREATMENT OPERATOR Temperature 36.6 C (97.9 F) 08/16/2024 7:07 AM SCALP TREATMENT OPERATOR Respiratory Rate 22 08/16/2024 11:45 AM SCALP TREATMENT OPERATOR Oxygen Saturation 92% 08/16/2024 11:45 AM SCALP TREATMENT OPERATOR Inhaled Oxygen Concentration - - Weight 69.4 kg (153 lb) 08/16/2024 7:07 AM SCALP TREATMENT OPERATOR Height 162.6 cm (5' 4 ) 08/16/2024 7:07 AM SCALP TREATMENT OPERATOR Body Mass Index 26.26 08/16/2024 7:07 AM SCALP TREATMENT OPERATOR Plan of Treatment Not on file Medical Devices Implanted Type Area [employer] Chemistry Teacher Device Identifier Shelf Expiration Date Model / Serial / Lot MedZafin Usa [employer] X [id number] Resolute [place] 2.25mm 2.1-2.7fr 26mm 140cm Rapid Exchange - [id number] - [id number] Implanted:Qty: 1 on 10/12/2020 by Missael Fuentes MD at [facility] Stent Medtronic Inc 04/11/2022 [id number] / [id number] / [id number] Medtronic Inc [id number] System 8mm 140cm 2mm Coronary Stent Resolute [place] Extra Small Vessel Biolinx Zotarolimus Cocr Rapid Exchange Radiopaque 1 Access Port Sterile Accepts .014in Guidewire 5fr Guide Catheter - [id number] - [id number] Implanted:Qty: 1 on 10/12/2020 by Missael Fuentes MD at [facility] Stent Medtronic Inc 05/28/2021 [id number] / [id number] / [id number] Biotronik Inc [id number] Stent Coronary De Rx Cocr Ors Msn 2.5x26mm - [id number] - [id number] Implanted:Qty: 1 on 10/25/2021 by Missael Fuentes MD at [facility] Stent Biotronik Inc 05/29/2023 [id number] / [id number] / [id number] Daig [place] [id number] Angio-Seal Evolution 6fr .035in Guidewire Bypass Tube Suture - [id number] - [id number] Implanted:Qty: 1 on 10/12/2020 by Missael Fuentes MD at [facility] Terumo Medical Maryellen 07/02/2021 [id number] / [id number] / [id number] Medtronic Card Vasc Surgery 3.0 X 12mm Swapnil Kingfisher Rx Coronary Stent [id number] - [id number] - [id number] Implanted:Qty: 1 on 08/16/2024 by Missael Fuentes MD at [facility] Right: Coronary Artery Medtronic Card Vasc Surgery 02/10/2027 [id number] / [id number] / Medtronic Card Vasc Surgery 3.0 X 12mm Swapnil Kingfisher Rx Coronary Stent [id number] - [id number] - [id number] Implanted:Qty: 1 on 08/16/2024 by Missael Fuentes MD at [facility] Medtronic Card Vasc Surgery 02/10/2027 [id number] 12UX / [id number] / [id number] Procedures Procedure Name Priority Date/Time Associated Diagnosis Comments EGFR Routine 08/16/2024 12:45 PM SCALP TREATMENT OPERATOR DIFFERENTIAL AUTO Routine 08/16/2024 12: 45 PM SCALP TREATMENT OPERATOR CBC WITH AUTO DIFFERENTIAL Routine 08/16/2024 12:45 PM SCALP TREATMENT OPERATOR BASIC METABOLIC PANEL Routine 08/16/2024 12:45 PM SCALP TREATMENT OPERATOR LEFT HEART CATHETERIZATION WITH CORONARY ANGIOGRAPHY AND WITH AND WITHOUT LEFT VENTRICULOGRAM Routine 08/16/2024 9:20 AM SCALP TREATMENT OPERATOR Coronary artery disease involving kasaan artery of transplanted heart without angina pectoris Heart replaced by transplant (HCC) POCT ACTIVATED CLOTTING TIME, LOW RANGE Routine 08/16/2024 8:47 AM SCALP TREATMENT OPERATOR CBC WITHOUT DIFFERENTIAL Routine 08/16/2024 8:42 AM SCALP TREATMENT OPERATOR EGFR STAT 08/16/2024 7:15 AM SCALP TREATMENT OPERATOR BASIC METABOLIC PANEL STAT 08/16/2024 7:15 AM SCALP TREATMENT OPERATOR CBC WITHOUT DIFFERENTIAL Routine 08/16/2024 7:15 AM SCALP TREATMENT OPERATOR ECG 12-LEAD Routine 08/16/2024 6:48 AM SCALP TREATMENT OPERATOR from Last 3 Months Results * eGFR (08/16/2024 12:45 PM SCALP TREATMENT OPERATOR) eGFR >90 >=60 mL/min/1. 73 m2 Comment: Interpretive Data Reference Interval Normal >/= 90 mL/min/1.73m2 Mildly decreased* 60 - 89 mL/min/1.73m2 Mildly to moderately decreased 45 - 59 mL/min/1.73m2 Moderately to severely decreased 30 - 44 mL/min/1.73m2 Severely decreased 15 - 29 mL/min/1.73m2 Kidney Failure < 15 mL/min/1.73m2 *Relative to young adult level Estimated glomerular filtration rate is determined by the 2020 CKD-EPI equation recommended by the National Kidney Foundation (A Unifying Approach to GFR Estimation: Recommendations of the NKF-ASK Task Force on Reassessing the Inclusion of Race in Diagnosing Kidney Disease, JASN 2020). The CKD-EPI equation should not be used for patients with unstable renal function and has not been validated in children and those over 70. Current interpretive data was last reviewed 2021. Blood 08/16/2024 12:4 5 PM SCALP TREATMENT OPERATOR 08/16/2024 1:15 PM SCALP TREATMENT OPERATOR us Ángel Trotter MD LAB BLOOD ORDERABLES Final Resul t [facility] [address] [facility] [place] [address] * (ABNORMAL) Differential, auto (08/16/2024 12:45 PM SCALP TREATMENT OPERATOR) Neutrophil abs 6.0 1.5 - 6.5 K/cumm Imm gran abs 0.1 0.0 - 0.1 K/cumm [facility] Lymphocyte abs 0.9 0.8 - 3.3 K/cumm [facility] Monocyte abs 0.1(L) 0.2 - 0.8 K/cumm [facility] Eosinophil abs 0.0 0.0 - 0.5 K/cumm [facility] Basophil abs 0.0 0.0 - 0.1 K/cumm [facility] Neutrophil pct 85.7 % [facility] Comment: Interpretive Data Percent cell count reference ranges are not reported, since discordance with absolute values may lead to misinterpretation of CBC data. Current Interpretive Data was last revised on 2017. Imm gran pct 0.7 % [facility] Comment: Interpretive Data Percent cell count reference ranges are not reported, since discordance with absolute values may lead to misinterpretation of CBC data. Current Interpretive Data was last revised on 2017. Lymphocyte pct 12.3 % [facility] Comment: Interpretive Data Percent cell count reference ranges are not reported, since discordance with absolute values may lead to misinterpretation of CBC data. Current Interpretive Data was last revised on 2017. Monocyte pct 1.1 % [facility] Comment: Interpretive Data Percent cell count reference ranges are not reported, since discordance with absolute values may lead to misinterpretation of CBC data. Current Interpretive Data was last revised on 2017. Eosinophil pct 0.1 % [facility] Comment: Interpretive Data Percent cell count reference ranges are not reported, since discordance with absolute values may lead to misinterpretation of CBC data. Current Interpretive Data was last revised on 2017. Basophil pct 0.1 % [facility] Comment: Interpretive Data Percent cell count reference ranges are not reported, since discordance with absolute values may lead to misinterpretation of CBC data. Current Interpretive Data was last revised on 2017. Blood 08/16/2024 12:4 5 PM SCALP TREATMENT OPERATOR 08/16/2024 1:05 PM SCALP TREATMENT OPERATOR us Ángel Trotter MD LAB BLOOD ORDERABLES Final Resul t [facility] [address] [facility] [place] [address] * (ABNORMAL) CBC with auto differential (08/16/2024 12:45 PM SCALP TREATMENT OPERATOR) WBC 7.0 3.8 - 9.9 K/cumm Hgb 14.5 13.0 - 17.5 g/dL [facility] Hct 42.2 38.9 - 50.3 % [facility] Plt 115(L) 150 - 400 K/cumm [facility] MPV 11.6 9.1 - 12.3 fL [facility] RBC 5.05 4.30 - 5.80 M/cumm [facility] MCV 83.6 81.3 - 96.4 fL [facility] MCH 28.7 27.1 - 33.3 pg [facility] MCHC 34.4 32.3 - 35.7 g/dL [facility] RDW CV 13.0 11.1 - 14.9 % [facility] RDW SD 38.9 35.7 - 48.1 fL [facility] NRBC abs 0.00 0.00 - 0.01 K/cumm [facility] Blood 08/16/2024 12:4 5 PM SCALP TREATMENT OPERATOR 08/16/2024 1:05 PM SCALP TREATMENT OPERATOR Ángel Trotter MD LAB BLOOD ORDERABLES Final Resul t Performing Organization Address City/[facility]/ZIP Co de Phone Number [facility] [place] [address] * Basic metabolic panel (08/16/2024 12:45 PM SCALP TREATMENT OPERATOR) Pathologist [facility] Sodium 143 135 - 145 mmol/L Potassium, pl 4.0 3.3 - 4.9 mmol/L [facility] Chloride 108 97 - 110 mmol/L [facility] CO2 25 22 - 32 mmol/L [facility] Anion gap 10 2 - 15 mmol/L [facility] BUN 15 6 - 25 mg/dL [facility] Creatinine 0.84 0.80 - 1.30 mg/dL [facility] Glucose 186 70 - 199 mg/dL [facility] Comment: Interpretive Data Fasting glucose >/= 126 mg/dl is diagnostic for diabetes. Fasting is defined as no caloric intake for at least 8 hours. Fasting glucose between 100 mg/dl to 125 mg/dl is diagnostic of prediabetes. In a patient with classic symptoms of hyperglycemia or hyperglycemic crisis, a random glucose >/= 200 mg/dl is diagnostic for diabetes. In the absence of unequivocal hyperglycemia, results should be confirmed by repeat testing. The classification and Diagnosis of Diabetes Diabetes Care 2021; 46: S19-S40. Current interpretive data was last revised 2022. Calcium 8.8 8.5 - 10.3 mg/dL [facility] Blood 08/16/2024 12:4 5 PM SCALP TREATMENT OPERATOR 08/16/2024 1:05 PM SCALP TREATMENT OPERATOR Ángel Trotter MD LAB BLOOD ORDERABLES Final Resul t Performing Organization Address City/[facility]/ZIP Co de Phone Number 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 Missael Fuentes MD Narrative 08/16/2024 9:33 AM SCALP TREATMENT OPERATOR Procedure: CORONARY ANGIOGRAM / PERCUTANEOUS CORONARY INTERVENTION Patient: Carlos Phillips is a 49 y.o. male : 1975 MR number: [id number] Date of Service: 08/16/2024 Accountant Machine Processing: Missael Fuentes MD Fellow: Ángel Trotter MD Referring physician: Wally Valadez MD INDICATION: CHF/Dyspnea NYHA Class 2 PATIENT CLINICAL PROFILE: Carlos Phillips is a 49 y.o. male with a history of Orthotopic heart transplant with known coronary artery vasculopathy and prior PCI presents for surveillance angiography. PROCEDURE: The risks, benefits and alternatives of the procedures and moderate sedation were explained to the patient and informed consent was obtained. The patient was brought to the laborer marine terminal and placed on the table Bilateral groins and the right radial artery were prepped and draped in the usual sterile fashion. The right radial artery site was infiltrated with 2% lidocaine. I provided direct face to face monitoring of intravenous conscious sedation which was administered using Fentanyl and Versed by an independently certified nurse for a total of 45 minutes. The vessel was accessed using Angiocath needle and a 5/6 F Terumo glidesheath was placed without difficulty into the vessel. IV vasodilators were administered and heparin was administered when the catheter was placed in the ascending aorta. Left Coronary Artery Angiogram was performed using a 5 Fr EBU 3.0 Catheter. Right Coronary Artery Angiogram was performed using a 5 Fr JR4 Catheter. Percutaneous coronary intervention performed on the Proximal PDA. This was an ACC/AHA Type A. Initial Lesion Length 12mm and final lesion Length 12mm. Initial MAUREEN Flow 3 Final MAUREEN Flow 3. Equipment used: 6 JR 4, Cittadino IVUS Catheter, scion blue, 3 0 x 12 resolute on extent Left Ventricular Hemodynamics were measured using ami catheter, no left ventriculogram was done. At the end of the procedure, arteriotomy was successfully closed and hemostasis achieved by a TR band placement. [facility] area in stable condition. There were no apparent complications. RESULTS: Hemodynamics: Left ventricular end-diastolic blood pressure was 12mmHG . There was no gradient on pull back across the aortic valve Coronary Arteriography: Left main coronary: Left main coronary artery is a large vessel that supplies an LAD and circumflex. There is no significant left main coronary artery disease Left Anterior Decending: Left anterior descending artery is a large vessel that is stent in its distal 3rd. There is significant narrowing after the stent with no severe InStent restenosis. Compared to his prior angiogram this is unchanged. Left Circumflex: Circumflex is a large vessel supplies 1 large obtuse marginal vessel and a large posterolateral branch. There is a 60% lesion at the ostium of the posterolateral branch that is unchanged from his prior cardiac catheterization. This is at a site where there is significant hinge point of the artery flexing Right Coronary Artery: Right coronary is a large dominant vessel supplies a very large PDA and large posterolateral branch. There is a focal area of 60% narrowing in the proximal portion of the PDA that is new from his prior angiogram. Intravascular ultrasound and percutaneous intervention After the diagnostic portion the case was felt that the PDA had worsened and required intravascular ultrasound to assess its severity. Heparin was administered to obtain ACT of greater than 300 was maintained throughout the case. A 6 [place] JR4 catheter was taken up and sat nicely in the right coronary artery ostium. Wire was placed easily into the distal PDA. Intravascular ultrasound was performed that showed significant plaquing in that focal area in it to be a proximally 70% stenosed on IVUS. The distal reference vessel was 3.5 the proximal vessel 3.0 and at the narrowing it was around 2-2.2. Given the large territory supplied and the narrowing we elected to perform PCI. A 3 0 x 12 resolute stent was taken down positioned carefully and deployed at 14 atmospheres. Repeat IVUS showed excellent stent apposition the distal and proximal edges with no dissection. There was excellent luminal gain with resolution of the narrowing. Final angiographic views showed MAUREEN 3 flow down all side branches no evidence of dissection or perforation. We then turned our attention the right radial artery where a TR band was placed. COMPLICATIONS: None DIAGNOSTIC us Valentino Pickens MD PhD CV CARDIAC CATH PROC EDURES Final Result * (ABNORMAL) POCT Activated clotting time, low range (08/16/2024 8:47 AM SCALP TREATMENT OPERATOR) [facility] ACT 337(H) 123 - 168 sec POC Performer [id number] [facility] POC Device Number [id number] [facility] Blood 08/16/2024 8:47 AM SCALP TREATMENT OPERATOR 08/16/2024 8:47 AM SCALP TREATMENT OPERATOR us Missael Fuentes MD LAB POCT ORDERABLES - DEVICE Final Result [facility] [place] [address] * (ABNORMAL) CBC without differential (08/16/2024 8:42 AM SCALP TREATMENT OPERATOR) [facility] WBC 5.3 3.8 - 9.9 K/cumm Hgb 14.3 13.0 - 17.5 g/dL [facility] Hct 41.6 38.9 - 50.3 % [facility] Plt 121(L) 150 - 400 K/cumm [facility] MPV 11.1 9.1 - 12.3 fL [facility] RBC 4.95 4.30 - 5.80 M/cumm [facility] MCV 84.0 81.3 - 96.4 fL [facility] MCH 28.9 27.1 - 33.3 pg [facility] MCHC 34.4 32.3 - 35.7 g/dL [facility] RDW CV 12.8 11.1 - 14.9 % [facility] RDW SD 39.4 35.7 - 48.1 fL [facility] NRBC abs 0.00 0.00 - 0.01 K/cumm [facility] Blood 08/16/2024 8:42 AM SCALP TREATMENT OPERATOR 08/16/2024 9:15 AM SCALP TREATMENT OPERATOR us Missael Fuentes MD LAB BLOOD ORDERABLES Final R esult Performing Organization Address City/[facility] Co de Phone Number [facility] [place] [address] * eGFR (08/16/2024 7:15 AM SCALP TREATMENT OPERATOR) eGFR >90 >=60 mL/min/1. 73 m2 Comment: Interpretive Data Reference Interval Normal >/= 90 mL/min/1.73m2 Mildly decreased* 60 - 89 mL/min/1.73m2 Mildly to moderately decreased 45 - 59 mL/min/1.73m2 Moderately to severely decreased 30 - 44 mL/min/1.73m2 Severely decreased 15 - 29 mL/min/1.73m2 Kidney Failure < 15 mL/min/1.73m2 *Relative to young adult level Estimated glomerular filtration rate is determined by the 2020 CKD-EPI equation recommended by the National Kidney Foundation (A Unifying Approach to GFR Estimation: Recommendations of the NKF-ASK Task Force on Reassessing the Inclusion of Race in Diagnosing Kidney Disease, JASN 2020). The CKD-EPI equation should not be used for patients with unstable renal function and has not been validated in children and those over 70. Current interpretive data was last reviewed 2021. Blood 08/16/2024 7:15 AM SCALP TREATMENT OPERATOR 08/16/2024 7:46 AM SCALP TREATMENT OPERATOR Missael Fuentes MD LAB BLOOD ORDERABLES Final R esult Performing Organization Address City/[facility]/ZIP Co de Phone Number [facility] [place] [address] * (ABNORMAL) CBC without differential (08/16/2024 7:15 AM SCALP TREATMENT OPERATOR) Pathologist [facility] WBC 5.3 3.8 - 9.9 K/cumm Hgb 14.6 13.0 - 17.5 g/dL [facility] Hct 42.0 38.9 - 50.3 % [facility] Plt 121(L) 150 - 400 K/cumm [facility] MPV 11.0 9.1 - 12.3 fL [facility] RBC 5.16 4.30 - 5.80 M/cumm [facility] MCV 81.4 81.3 - 96.4 fL [facility] MCH 28.3 27.1 - 33.3 pg [facility] MCHC 34.8 32.3 - 35.7 g/dL [facility] RDW CV 13.0 11.1 - 14.9 % [facility] RDW SD 38.3 35.7 - 48.1 fL [facility] NRBC abs 0.00 0.00 - 0.01 K/cumm [facility] Blood 08/16/2024 7:15 AM SCALP TREATMENT OPERATOR 08/16/2024 7:24 AM SCALP TREATMENT OPERATOR Narrative [facility] - 08/16/2024 7:41 AM SCALP TREATMENT OPERATOR To be drawn after hydration bolus complete us Missael Fuentes MD LAB BLOOD ORDERABLES Final R esult [facility] [place] [address] * (ABNORMAL) Basic metabolic panel (08/16/2024 7:15 AM SCALP TREATMENT OPERATOR) [facility] Sodium 138 135 - 145 mmol/L Potassium, pl 4.1 3.3 - 4.9 mmol/L [facility] Chloride 104 97 - 110 mmol/L [facility] CO2 25 22 - 32 mmol/L [facility] Anion gap 9 2 - 15 mmol/L [facility] BUN 18 6 - 25 mg/dL [facility] Creatinine 0.95 0.80 - 1.30 mg/dL [facility] Glucose 202(H) 70 - 199 mg/dL [facility] Comment: Interpretive Data Fasting glucose >/= 126 mg/dl is diagnostic for diabetes. Fasting is defined as no caloric intake for at least 8 hours. Fasting glucose between 100 mg/dl to 125 mg/dl is diagnostic of prediabetes. In a patient with classic symptoms of hyperglycemia or hyperglycemic crisis, a random glucose >/= 200 mg/dl is diagnostic for diabetes. In the absence of unequivocal hyperglycemia, results should be confirmed by repeat testing. The classification and Diagnosis of Diabetes Diabetes Care 2021; 46: S19-S40. Current interpretive data was last revised 2022. Calcium 10.2 8.5 - 10.3 mg/dL [facility] Blood 08/16/2024 7:15 AM SCALP TREATMENT OPERATOR 08/16/2024 7:24 AM SCALP TREATMENT OPERATOR Missael Fuentes MD LAB BLOOD ORDERABLES Final R esult [facility] [place] [address] * ECG 12 lead (08/16/2024 6:48 AM SCALP TREATMENT OPERATOR) Ventricular Rate EKG/Min 64 BPM [facility] Atrial Rate 64 BPM [facility] CA-Interval (MSEC) 158 ms [facility] QRS-Interval (MSEC) 100 ms [facility] QT-Interval (MSEC) 412 ms [facility] QTc 425 ms [facility] P [place] 29 degrees [facility] R [place] 9 degrees [facility] T [place] 72 degrees [facility] Diagnosis Normal sinus rhythm Incomplete right bundle branch block Nonspecific ST and T wave abnormality Abnormal ECG Confirmed by Mike Aguilar MD ([id number]) on 08/16/2024 9:10:29 AM [facility] 08/16/2024 6:48 AM SCALP TREATMENT OPERATOR 08/16/2024 9:10 AM SCALP TREATMENT OPERATOR us Missael Fuentes MD ECG ORDERABLES Final Result Performing Organization Address City/[facility]/ZIP Co de Phone Number [facility] from Last 3 Months Insurance [facility] [place] [facility] ID[facility] Advance Directives For more information, please contact: [phone] * Full Code (Latest Code Status on File) Date Activated Date Inactivated Comments 08/16/2024 10:05 AM 08/16/2024 6:17 PM * Full Code Date Activated Date Inactivated Comments 06/12/2023 11:49 AM 06/15/2023 11:57 AM * Full Code Date Activated Date Inactivated Comments 05/21/2023 7:52 AM 05/22/2023 4:38 AM * Full Code Date Activated Date Inactivated Comments 12/10/2021 5:37 PM 12/14/2021 7:50 PM * Full Code Date Activated Date Inactivated Comments 10/25/2021 11:43 AM 10/25/2021 8:12 PM Care Teams Propagator Relationship Specialty Start Date End Date Abhay Plascencia MD [address] [place] [address] PCP - General 05/28/17 Bhavesh Chin, RN [address] [address] Progress Clerk 07/26/18 Analilia Harris MD [address] [facility] [address] [place] [address] Consulting Physician Gastroenterology 04/28/21
--- OUTSIDE RECORDS SUMMARY | 2024-10-08 11:05 | XMS_ITS | Encounter Summary ---
Author Organization [facility] Address [address] [place] [address] Phone Care Team Providers Care Cmm Technician Name Role Phone Abhay Plascencia MD Primary Care Provider Aguilar Novoa MD Unavailable [phone] Sanjay Ingram MD Unavailable Reason for Visit * Reason Comments Medication Refill Encounter Details Date Type Department Care Team (Late st Contact Info) Description 11/05/2023 Refill [facility] - Internal Medicine - [place] [address] [place] [address] Abhay Plascencia MD [address] [facility] [place] [address] Medication Refill Social History Tobacco Use Types Packs/Day Years Used Date Smoking Tobacco: Former Cigarettes 2 31.8 1 992 - 06/07/2023 Passive Smoke Exposure: Current Smokeless Tobacco: Never Comments:Quit for 5 years bu t started again Alcohol Use Standard Drinks/Week Comments Not Currently 0 (1 standard drink = 0.6 oz pure alcohol) Socially 2-3 drinks [place] Hard Lemonades [facility] Utilities Answer Date Recorded In the past 12 months has [employer] electric, gas, oil, or water company threatened [...] often do you attend chur ch or restorationism services? Never 09/09/2023 Do you belong to any clubs o r organizations such as baptism groups, unions, fraternal or athletic groups, or [...] Total Score - Questions 1-9 0 02/2024 [facility] - Occupational Stress Questionnaire Answer Date [...] place to sleep or slept in a jail (including now)? No 09/09/2023 Education Answer Date [...] Telephone Encounter - Nicolette Byrne RN - 11/05/2023 8:42 AM CDT Medication(s) refilled and signed per [facility] Chronic Medication Refill Standing Order for Pediatricand Adult Patients. Requested Prescriptions Pending Prescriptions Disp Refills Dilt-XR 120 MG CAPSULE SR 24 HR [Pharmacy Med Name: DILTIAZEM XR 120MG CAPSULES (24 HR)] 90 Capsule0 Sig: TAKE 1 CAPSULE BY MOUTH DAILY Calcium-Channel Blockers Protocol Passed - 11/05/2023 5:50 AM Passed - BP on record in the past year Clinician-entered: BP Readings from Last 3 Encounters: 09/09/23 134/86 06/08/23 110/70 06/06/23 130/78 Patient-entered: No data recorded Passed - Visit with relevant provider in past 12 months or upcoming 90 days Recent Visits Date Type Provider Dept 09/09/23 Office Visit [facility] [place] 06/08/23 Office Visit Abhay Plascencia MD [facility] [place] 02/11/23 Office Visit Yenni Jiménez PAC [facility] [place] 11/24/22 Office Visit Abhay Plascencia MD [facility] [place] Showing recent visits within past 365 days and meeting all other requirements Future Appointments Date Type Provider Dept 12/16/23 Appointment Abhay Plascencia MD [facility] Showing future appointments within next 90 days and meeting all other requirements documented in this encounter Plan of Treatment Upcoming Encounters Date Type Department Care Team (Late st Contact Info) Description 10/24/2024 9:00 AM CDT Office Visit [facility] [address] [place] [phone] Abhay Plascencia MD [address] [facility] [place] [address] 11/23/2024 10:15 AM CDT Office Visit [facility] [address] [place] [phone] Abhay Plascencia MD [address] [place] [address] documented as of this encounter Visit Diagnoses Not on filedocumented in this encounter Additional Health Concerns Assessment Noted Time PHQ-9 Depression Total Score: 0 09/09/19 10:39 AM COMMAND AND CONTROL SPECIALIST documented as of this encounter Care Teams Cmm Technician Relationship Specialty Start Date End Date Abhay Plascencia MD [address] [place] [address] PCP - General Internal Medicine 06/26/15 Aguilar Novoa MD [address] [phone] Consulting Physician General Surgery 11/11/21 Sanjay Ingram MD [address] [address] Consulting Physician Colon and Rectal Surgery 04/16/22 documented as of this encounter
--- OUTSIDE RECORDS SUMMARY | 2024-10-08 11:05 | XMS_ITS | Encounter Summary ---
Author Organization [facility] Address [address] [place] [address] Phone Care Team Providers Care Photocopy Operator Name Role Phone Abhay Plascencia MD Primary Care Provider Aguilar Novoa MD Unavailable [phone] Sanjay Ingram MD Unavailable Reason for Visit * Reason Comments Medication Refill Encounter Details Date Type Department Care Team (Late st Contact Info) Description 01/04/[address] [facility] Medical [facility] - Internal Medicine - [place] [address] [place] [address] Abhya Plascencia MD [address] [facility] [place] [address] Medication Refill Social History Tobacco Use Types Packs/Day Years Used Date Smoking Tobacco: Former Cigarettes 2 31.8 1 992 - 06/07/2023 Passive Smoke Exposure: Current Smokeless Tobacco: Never Comments:Quit for 5 years bu t started again Alcohol Use Standard Drinks/Week Comments Not Currently 0 (1 standard drink = 0.6 oz pure alcohol) Socially 2-3 drinks [place] Hard Lemonades [facility] Utilities Answer Date Recorded In the past 12 months has [employer] electric, gas, oil, or water company threatened [...] often do you attend chur ch or episcopal services? Never 09/09/2023 Do you belong to any clubs o r organizations such as hindu groups, unions, fraternal or athletic groups, or [...] Recorded Total Score - Questions 1-9 0 12/01 [facility] - Occupational Stress Questionnaire Answer Date [...] place to sleep or slept in a long-term (including now)? No 09/09/2023 Education Answer Date [...] Telephone Encounter - Nicolette Byrne RN - 01/04/2024 9:34 AM CDT Medication failed the protocol, provider to review and approve the medication order if appropriate. Requested Prescriptions Pending Prescriptions Disp Refills citalopram (CeleXA) 20 MG Tablet [Pharmacy Med Name: CITALOPRAM 20MG TABLETS] 135 Tablet 0 Sig: TAKE 1 AND 1/2 TABLETS BY MOUTH DAILY Citalopram (Celexa) (6 Month Refill Only) Protocol Failed - 01/04/2024 5:43 AM Failed - Has an encounter in the past 6 months with a depression, anxiety, adjustment disorder, OCD, or PTSD visit diagnosis Passed - Citalopram dose is less than or equal to 40mg / day Passed - Visit with relevant provider in past 6 months or upcoming 90 days Recent Visits Date Type Provider Dept 12/16/23 Office Visit Abhay Plascencia MD [facility] 09/09/23 Office Visit Abhay Plascencia MD [facility] [place] Showing recent visits within past 182 days and meeting all other requirements Future Appointments Date Type Provider Dept 03/17/24 Appointment Abhay Plascencia MD [facility] [place] Showing future appointments within next 90 days and meeting all other requirements Passed - Patient has established therapy with Citalopram for at least 6 months omeprazole (PriLOSEC) 20 MG CAPSULE DELAYED RELEASE [Pharmacy Med Name: OMEPRAZOLE 20MG CAPSULES] 180 Capsule 0 Sig: TAKE 1 CAPSULE BY MOUTH TWICE DAILY Proton Pump Inhibitors Protocol Passed - 01/04/2024 5:43 AM Passed - Visit with relevant provider in past 12 months or upcoming 90 days Recent Visits Date Type Provider Dept 12/16/23 Office Visit Abhay Plascencia MD [facility] [place] 09/09/23 Office Visit Abhay Plascencia MD [facility] [place] 06/08/23 Office Visit Abhay Plascencia MD [facility] 02/11/23 Office Visit Yenni Jiménez PAC [facility] Showing recent visits within past 365 days and meeting all other requirements Future Appointments Date Type Provider Dept 03/17/24 Appointment Abhay Plascencia MD [facility] Showing future appointments within next 90 days and meeting all other requirements documented in this encounter Plan of Treatment Upcoming Encounters Date Type Department Care Team (Late st Contact Info) Description 10/24/2024 9:00 AM CDT [facility] [address] [place] [address] Abhay Plascencia MD [address] [place] [address] 11/23/2024 10:15 AM CDT Office Visit [facility] [address] [place] [address] Abhay Plascencia MD [address] [place] [address] documented as of this encounter Visit Diagnoses Not on filedocumented in this encounter Additional Health Concerns Assessment Noted Time PHQ-9 Depression Total Score: 0 12/16/19 24 11:10 AM CDT documented as of this encounter Care Teams Photocopy Operator Relationship Specialty Start Date End Date Abhay Plascencia MD [address] [place] [address] PCP - General Internal Medicine 06/26/15 Aguilar Novoa MD [address] [phone] Consulting Physician General Surgery 11/11/21 aSnjay Ingram MD [address] [address] Consulting Physician Colon and Rectal Surgery 04/16/22 documented as of this encounter
--- OUTSIDE RECORDS SUMMARY | 2024-10-08 11:05 | XMS_ITS | Clinical Summary ---
Author Organization [facility] Address [address] [place] [address] Care Team Providers Care Retail Seasonal Specialist Name Role Phone Abhay Plascencia MD Primary Care Provider [phone] Bhavesh Chin RN Unavailable [phone] Analilia Harris MD Unavailable [phone] Allergies Active Allergy Reactions Criticality Noted Date [...] medication again. 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 He needs to continue with Brilinta and aspirin Abnormal stress echo 10/01/2020 Overview (10/01/2020): Added automatically from request for surgery [id number] H/O heart transplant ([facility]) 10/01/2020 Overview (10/01/2020): Added automatically from request for surgery [id number] Assessment & Plan (04/27/2021 6:28 AM CDT): [...] risk medication use 12/09/2012 Abdominal pain Enteritis Encounters Date Type Department Care Team Description 08/17/2024 Telephone [facility] [address] [place] [address] Mami Blackmon RN Cardiac Rehab 08/16/2024 8:30 AM CUT OUT STITCHER - 08/16/2024 10:10 AM [facility] Surgery [facility] [address] [place] [id number] Missael Fuentes MD LEFT HEART CATHETERIZATION WITH CORONARY ANGIOGRAPHY AND WITH OR WITHOUT LEFT VENTRICULOGRAM [id number] 08/16/2024 6:14 AM CUT OUT STITCHER - 08/16/2024 2:00 PM CUT OUT STITCHER Hospital Encounter [facility] [place] [address] [place] [id number] Missael Fuentes MD Coronary artery disease (Primary Dx); 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; Heart replaced by transplant (HCC) Discharge Disposition: Discharge to home or self care 08/16/2024 Telephone [facility] Transplant Heart [phone] [place] [address] Bhavesh Chin RN 08/04/2024 Telephone [facility] Cardiology [address] 8[address] [place] [address] [place] [phone] Missael Fuentes MD 08/01/2024 Telephone [facility] Transplant Heart [phone] [place] [address] Supa Funez from Last 3 Months Immunizations Immunization Administration Dates Next Due Influenza, Quadrivalent, Lillie l Culture-based MDCK, Preservative Free, Antibiotic Free, Intramuscular 05/26/2019 Influenza, Quadrivalent, Spl it, Preservative Free, Intramuscular 04/18/2018 Influenza, Unspecified 06/03/2023,05/17/2021 Tdap 11/14/2016 Surgical History Surgery Date Site/Laterality Comments ORTHOTOPIC HEART TRANSPLANT 08/03/2004 - 08/02/2005 CARDIAC CATHETERIZATION LEFT VENTRICULAR ASSIST DEVICE HERNIA REPAIR CORONARY STENT PLACEMENT US GUIDED BIOPSY LYMPH NODE SUPERFICIAL LEFT 12/13/2021 N/A Medical History Medical History Date Comments Encounter for aftercare foll owing other organ transplant Aftercare following organ tr ansplant - (Added by TW Conv) Hyperlipidemia Hypertension COPD (chronic obstructive pu lmonary disease) (HCC) Cancer (HCC) 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 Coronary artery disease Family History Medical History Relation Name Comments Heart attack Brother 1 Family history of heart attack - (Added by TW Conv) Heart disease Brother 1 CABG Coronary artery disease Brother 2 Fami ly history of coronary artery disease - (Added by TW Conv) Diabetes Brother 3 Family history of diabetes mellitus - (Added by TW Conv) Coronary artery disease Father Fami ly history of coronary artery disease - (Added by TW Conv) Diabetes Father Family history of diabetes mellitus - (Added by TW Conv) Heart attack Father Family history of heart attack - (Added by TW Conv) Heart failure Father Hypertension Father Family history of hypertension - (Added by TW Conv) Stroke Father Arrhythmia Mother Coronary artery disease Mother CABG Heart attack Mother Family history of heart attack - (Added by TW Conv) Heart disease Mother CABG late 60's Heart failure Mother Family history of heart failure - (Added by TW Conv) Hypertension Mother Family history of hypertension - (Added by TW Conv) Lung disease Mother Family history of lung disease - (Added by TW Conv) Stroke Mother Family history of stroke - (Added by TW Conv) Hypertension Sister 1 Family history of hypertension - (Added by TW Conv) Diabetes Sister 2 Family history of diabetes mellitus - (Added by TW Conv) Relation Name Status Comments Brother 1 Brother 2 Brother 3 Father Mother Sister 1 Sister 2 Social History Tobacco Use Types Packs/Day Years [...] on file Legal Sex Male 1:54 AM CUT OUT STITCHER Gender Identity Not on file Sexual Orientation Not on file Obstetrics History Last Filed Vital Signs Vital Sign Reading Time Taken Comments Blood Pressure 130/68 08/16/2024 11:45 AM CUT OUT STITCHER Pulse 75 08/16/2024 11:45 AM CUT OUT STITCHER Temperature 36.6 C (97.9 F) 08/16/2024 7:07 AM CUT OUT STITCHER Respiratory Rate 22 08/16/2024 11:45 AM CUT OUT STITCHER Oxygen Saturation 92% 08/16/2024 11:45 AM CUT OUT STITCHER Inhaled Oxygen Concentration - - Weight 69.4 kg (153 lb) 08/16/2024 7:07 AM CUT OUT STITCHER Height 162.6 cm (5' 4 ) 08/16/2024 7:07 AM CUT OUT STITCHER Body Mass Index 26.26 08/16/2024 7:07 AM CUT OUT STITCHER Plan of Treatment Health Maintenance Due Date Last Done Comments Colon Cancer Screening-Colonoscopy 1975 Depression Screening 1975 Hepatitis C Screening 1975 Prostate Cancer Screening-PSA 1975 Regular Well Visit/Exam 18-64 01/19/1992 Zoster Vaccine (1 of 2) 1993 Pneumococcal vaccine <65 (2 of 2 - PCV) 05/07/2005 05/07/2004 DTaP/Tdap/Td Vaccine (2 - Td or Tdap) 11/14/2026 11/14/2016 Hepatitis B Screening Completed 03/21/2005, 005 Influenza Vaccine Completed 06/20/2024, , 06/03/2023, Additional history exists Medical Devices Implanted Type Area Tow Picker Device Identifier Shelf Expiration Date Model / Serial / Lot Dental Kidz Inc X [id number] Resolute Virgie 2.25mm 2.1-2.7fr 26mm 140cm Rapid Exchange - [id number] - [id number] Implanted:Qty: 1 on 10/12/2020 by Missael Fuentes MD at [facility] Stent Medtronic Inc 04/11/2022 [id number] / [id number] / [id number] Medtronic Inc [id number] System 8mm 140cm 2mm Coronary Stent Resolute Virgie Extra Small Vessel Biolinx Zotarolimus Cocr Rapid Exchange Radiopaque 1 Access Port Sterile Accepts .014in Guidewire 5fr Guide Catheter - [id number] - [id number] Implanted:Qty: 1 on 10/12/2020 by Missael Fuentes MD at [facility] Stent Medtronic Inc 05/28/2021 [id number] / [id number] / [id number] Biotronik Inc [id number] Stent Coronary De Rx Cocr Ors Msn 2.5x26mm - [id number] - [id number] Implanted:Qty: 1 on 10/25/2021 by Missael Fuentes MD at [facility] Stent Biotronik Inc 05/29/2023 [id number] / [id number] / [id number] Daig Maryellen[facility] [id number] Angio-Seal Evolution 6fr .035in Guidewire Bypass Tube Suture - [id number] - [id number] Implanted:Qty: 1 on 10/12/2020 by Missael Fuentes MD at [facility] TerSwitchNote Maryellen 07/02/2021 [id number] / [id number] / [id number] Medtronic Card Vasc Surgery 3.0 X 12mm Swapnil [place] Rx Coronary Stent [id number] - [id number] - [id number] Implanted:Qty: 1 on 08/16/2024 by Missael Fuentes MD at [facility] Right: Coronary Artery Medtronic Card Vasc Surgery 02/10/2027 [id number] / [id number] / Medtronic Card Vasc Surgery 3.0 X 12mm Swapnil [place] Rx Coronary Stent [id number] - [id number] - [id number] Implanted:Qty: 1 on 08/16/2024 by Missael Fuentes MD at [facility] Medtronic Card Vasc Surgery 02/10/2027 [id number] 12UX / [id number] / [id number] Procedures Procedure Name Priority Date/Time Associated Diagnosis Comments EGFR Routine 08/16/2024 12:45 PM CUT OUT STITCHER DIFFERENTIAL AUTO Routine 08/16/2024 12: 45 PM CUT OUT STITCHER CBC WITH AUTO DIFFERENTIAL Routine 08/16/2024 12:45 PM CUT OUT STITCHER BASIC METABOLIC PANEL Routine 08/16/2024 12:45 PM CUT OUT STITCHER LEFT HEART CATHETERIZATION WITH CORONARY ANGIOGRAPHY AND WITH AND WITHOUT LEFT VENTRICULOGRAM Routine 08/16/2024 9:20 AM CUT OUT STITCHER 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 73 m2 Comment: [...] reviewed 2021. Blood 08/16/2024 12:4 5 PM CUT OUT STITCHER 08/16/2024 1:15 PM CUT OUT STITCHER us Ángel Trotter MD LAB BLOOD ORDERABLES Final Resul t [facility] [address] [facility] [place] [address] * (ABNORMAL) Differential, auto (08/16/2024 12:45 PM CUT OUT STITCHER) Neutrophil abs 6.0 1.5 - 6.5 K/cumm Imm gran abs 0.1 0.0 - 0.1 K/cumm [facility] Lymphocyte abs 0.9 0.8 - 3.3 K/cumm [facility] Monocyte abs 0.1(L) 0.2 - 0.8 K/cumm [facility] Eosinophil abs 0.0 0.0 - 0.5 K/cumm [facility] Basophil abs 0.0 0.0 - 0.1 K/cumm [facility] Neutrophil pct 85.7 % [facility] Comment: Interpretive Data Percent cell count reference ranges are not reported, since discordance with absolute values may lead to misinterpretation of CBC data. Current Interpretive Data was last revised on 2017. Imm gran pct 0.7 % [facility] Comment: Interpretive Data Percent cell count reference ranges are not reported, since discordance with absolute values may lead to misinterpretation of CBC data. Current Interpretive Data was last revised on 2017. Lymphocyte pct 12.3 % [facility] Comment: Interpretive Data Percent cell count reference ranges are not reported, since discordance with absolute values may lead to misinterpretation of CBC data. Current Interpretive Data was last revised on 2017. Monocyte pct 1.1 % [facility] Comment: Interpretive Data Percent cell count reference ranges are not reported, since discordance with absolute values may lead to misinterpretation of CBC data. Current Interpretive Data was last revised on 2017. Eosinophil pct 0.1 % [facility] Comment: Interpretive Data Percent cell count reference ranges are not reported, since discordance with absolute values may lead to misinterpretation of CBC data. Current Interpretive Data was last revised on 2017. Basophil pct 0.1 % [facility] Comment: Interpretive Data Percent cell count reference ranges are not reported, since discordance with absolute values may lead to misinterpretation of CBC data. Current Interpretive Data was last revised on 2017. Blood 08/16/2024 12:4 5 PM CUT OUT STITCHER 08/16/2024 1:05 PM CUT OUT STITCHER us Ángel Trotter MD LAB BLOOD ORDERABLES Final Resul t [facility] [address] [facility] [place] [address] * (ABNORMAL) CBC with auto differential (08/16/2024 12:45 PM CUT OUT STITCHER) WBC 7.0 3.8 - 9.9 K/cumm Hgb 14.5 13.0 - 17.5 g/dL [facility] Hct 42.2 38.9 - 50.3 % [facility] Plt 115(L) 150 - 400 K/cumm [facility] MPV 11.6 9.1 - 12.3 fL [facility] RBC 5.05 4.30 - 5.80 M/cumm [facility] MCV 83.6 81.3 - 96.4 fL [facility] MCH 28.7 27.1 - 33.3 pg [facility] MCHC 34.4 32.3 - 35.7 g/dL [facility] RDW CV 13.0 11.1 - 14.9 % [facility] RDW SD 38.9 35.7 - 48.1 fL [facility] NRBC abs 0.00 0.00 - 0.01 K/cumm [facility] Blood 08/16/2024 12:4 5 PM CUT OUT STITCHER 08/16/2024 1:05 PM CUT OUT STITCHER Ángel Trotter MD LAB BLOOD ORDERABLES Final Resul t [facility] [address] [facility] [place] [address] * Basic metabolic panel (08/16/2024 12:45 PM CUT OUT STITCHER) Sodium 143 135 - 145 mmol/L Potassium, pl 4.0 3.3 - 4.9 mmol/L [facility] Chloride 108 97 - 110 mmol/L [facility] CO2 25 22 - 32 mmol/L [facility] Anion gap 10 2 - 15 mmol/L [facility] BUN 15 6 - 25 mg/dL [facility] Creatinine 0.84 0.80 - 1.30 mg/dL [facility] Glucose 186 70 - 199 mg/dL [facility] Comment: Interpretive Data Fasting glucose >/= 126 [...] classification and Diagnosis of Diabetes Diabetes Care 202; 46: S19-S40. Current interpretive data was last revised 2022. 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 male : 1975 MR number: [id number] Date of Service: 08/16/2024 Needle Grinder: Missael Fuentes MD Fellow: Ángel Tortter MD Referring physician: Wally Valadez MD INDICATION: [...] obtained. The patient was brought to the agricultural labor camp manager and placed on the table Bilateral groins [...] Flow 3. Equipment used: 6 JR 4, [employer] [facility] [employer] IVUS Catheter, scion blue, 3 0 x 12 resolute on extent Left Ventricular Hemodynamics were measured using ami catheter, no left ventriculogram was done. At the end of the procedure, arteriotomy was successfully closed and hemostasis achieved by a TR band placement. Patient was transferred to the holding area in stable condition. There were no [...] was maintained throughout the case. A 6 Luxembourgish JR4 catheter was taken up and sat [...] clotting time, low range (08/16/2024 8:47 AM CUT OUT STITCHER) [facility] ACT 337(H) 123 - 168 sec POC Performer [id number] [facility] POC Device Number [id number] [facility] Blood 08/16/2024 8:47 AM CUT OUT STITCHER 08/16/2024 8:47 AM CUT OUT STITCHER us Missael Fuentes MD LAB POCT ORDERABLES - DEVICE Final Result [facility] [address] [facility] [place] [address] * (ABNORMAL) CBC without differential (08/16/2024 8:42 AM CUT OUT STITCHER) [facility] WBC 5.3 3.8 - 9.9 K/cumm Hgb 14.3 13.0 - 17.5 g/dL [facility] Hct 41.6 38.9 - 50.3 % [facility] Plt 121(L) 150 - 400 K/cumm [facility] MPV 11.1 9.1 - 12.3 fL [facility] RBC 4.95 4.30 - 5.80 M/cumm [facility] MCV 84.0 81.3 - 96.4 fL [facility] MCH 28.9 27.1 - 33.3 pg [facility] MCHC 34.4 32.3 - 35.7 g/dL [facility] RDW CV 12.8 11.1 - 14.9 % [facility] RDW SD 39.4 35.7 - 48.1 fL [facility] NRBC abs 0.00 0.00 - 0.01 K/cumm [facility] Blood 08/16/2024 8:42 AM CUT OUT STITCHER 08/16/2024 9:15 AM CUT OUT STITCHER Missael Fuentes MD LAB BLOOD ORDERABLES Final R esult Performing Organization Address [facility] Co de Phone Number [facility] [place] [address] * eGFR (08/16/2024 7:15 AM CUT OUT STITCHER) eGFR >90 >=60 mL/min/1. 73 m2 Comment: [...] last reviewed 2021. Blood 08/16/2024 7:15 AM CUT OUT STITCHER 08/16/2024 7:46 AM CUT OUT STITCHER Missael Fuentes MD LAB BLOOD ORDERABLES Final R esult Performing Organization Address [facility]/ZIP Co de Phone Number [facility] [place] [address] * (ABNORMAL) CBC without differential (08/16/2024 7:15 AM CUT OUT STITCHER) [facility] WBC 5.3 3.8 - 9.9 K/cumm Hgb 14.6 13.0 - 17.5 g/dL [facility] Hct 42.0 38.9 - 50.3 % [facility] Plt 121(L) 150 - 400 K/cumm [facility] MPV 11.0 9.1 - 12.3 fL [facility] RBC 5.16 4.30 - 5.80 M/cumm [facility] MCV 81.4 81.3 - 96.4 fL [facility] MCH 28.3 27.1 - 33.3 pg [facility] MCHC 34.8 32.3 - 35.7 g/dL [facility] RDW CV 13.0 11.1 - 14.9 % [facility] RDW SD 38.3 35.7 - 48.1 fL [facility] NRBC abs 0.00 0.00 - 0.01 K/cumm [facility] Blood 08/16/2024 7:15 AM CUT OUT STITCHER 08/16/2024 7:24 AM CUT OUT STITCHER Narrative [facility] - 08/16/2024 7:41 AM CUT OUT STITCHER To be drawn after hydration bolus complete us Missael Fuentes MD LAB BLOOD ORDERABLES Final R esult [facility] [address] [facility] [place] [address] * (ABNORMAL) Basic metabolic panel (08/16/2024 7:15 AM CUT OUT STITCHER) [facility] Sodium 138 135 - 145 mmol/L Potassium, pl 4.1 3.3 - 4.9 mmol/L [facility] Chloride 104 97 - 110 mmol/L [facility] CO2 25 22 - 32 mmol/L [facility] Anion gap 9 2 - 15 mmol/L [facility] BUN 18 6 - 25 mg/dL [facility] Creatinine 0.95 0.80 - 1.30 mg/dL [facility] Glucose 202(H) 70 - 199 mg/dL [facility] Comment: Interpretive Data Fasting glucose >/= 126 [...] 2022. Calcium 10.2 8.5 - 10.3 mg/dL [facility] Blood 08/16/2024 7:15 AM CUT OUT STITCHER 08/16/2024 7:24 AM CUT OUT STITCHER Missael Fuentes MD LAB BLOOD ORDERABLES Final R esult Performing Organization Address [facility] de Phone Number [facility] [address] [facility] [place] [address] * ECG 12 lead (08/16/2024 6:48 AM CUT OUT STITCHER) Ventricular Rate EKG/Min 64 BPM [facility] Atrial Rate 64 BPM [facility] NE-Interval (MSEC) 158 ms [facility] QRS-Interval (MSEC) 100 ms [facility] QT-Interval (MSEC) 412 ms [facility] QTc 425 ms [facility] P [place] 29 degrees [facility] R [place] 9 degrees [facility] T [place] 72 degrees [facility] Diagnosis Normal sinus rhythm Incomplete right bundle branch block Nonspecific ST and T wave abnormality Abnormal ECG Confirmed by Lauren CANCINO, Mike ([id number]) on 08/16/2024 9:10:29 AM [facility] 08/16/2024 6:48 AM CUT OUT STITCHER 08/16/2024 9:10 AM CUT OUT STITCHER Missael Fuentes MD ECG ORDERABLES Final Result Performing Organization Address [facility] Co de Phone Number [facility] from Last 3 Months Insurance [facility] DUAL [place] [facility] Advance Directives For more information, please contact: [phone] * Full Code (Latest Code Status on [...] 11:43 AM 10/25/2021 8:12 PM Care Teams Retail Seasonal Specialist Relationship Specialty Start Date End Date Abhay Plascencia MD [address] [place] [address] PCP - General 05/28/17 Bhavesh Chin, RN [address] [address] Flue Lining Dipper 07/26/18 Analilia Harris MD [address] [address] Consulting Physician Gastroenterology 04/28/21
--- OUTSIDE RECORDS SUMMARY | 2024-10-08 11:05 | XMS_ITS | Clinical Summary ---
Author Organization [facility] Address [address] [place] [address] Phone Care Team Providers Care Industrial Maintenance Instructor Name Role Phone Abhay Plascencia MD Primary Care Provider Aguilar Novoa MD Unavailable [phone] Sanjay Ingram MD Unavailable Allergies Active Allergy Reactions Criticality Noted Date Comments Clopidogrel Rash High 12/06/2020 Iodinated Contrast Media Rash High 03/19/2020 Penicillins Rash High 01/05/2018 Hives and rash as an , has not taken since Medications aspirin EC 81 MG Tablet Delayed Response Take 81 mg by mouth daily. Active enalapril (VASOTEC) 10 MG Tablet Take 10 mg by mouth 2 times daily. 04/27/20 20 Active Brilinta 90 MG Tablet Take by mouth 2 times daily. 10/18/19 21 Active tacrolimus (PROGRAF) 0.5 MG Capsule TAKE 2 CAPSULES BY MOUTH EVERY MORNING AND 1 CAPSULE EVERY EVENING 01/16/20 21 Active sirolimus (RAPAMUNE) 0.5 MG Tablet Take 0.5 mg by mouth Every other day. 11/06/19 22 Active VITAMIN D PO Take by mouth. Ac tive Cyanocobalamin (VITAMIN B12 PO) Take by mouth. Activ e rosuvastatin (CRESTOR) 20 MG Tablet Take 1 Tablet by mouth nightly. 90 Tablet 03/31/20 23 Active albuterol (Ventolin HFA) 108 (90 Base) MCG/ACT Aerosol Solution take 1-2 Puffs by inhalation every 6 hours as needed for Wheezing. 8.5 g 2 05/29/20 23 Active sildenafil citrate (VIAGRA) 50 MG Tablet Take 1 Tablet by mouth as needed for Erectile Dysfunction. 30 Tablet 09/09/19 24 Active tamsulosin (FLOMAX) 0.4 MG Capsule Take 1 Capsule by mouth daily. 30 Capsule 3 08/25/19 25 Active Dilt-XR 120 MG CAPSULE SR 24 HRIndications: Essential hypertension, benign TAKE 1 CAPSULE BY MOUTH DAILY 90 Capsule 1 09/19/19 25 Active omeprazole (PriLOSEC) 20 MG CAPSULE DELAYED RELEASE TAKE 1 CAPSULE BY MOUTH TWICE DAILY 180 Capsule 10/04/19 25 Active citalopram (CeleXA) 20 MG Tablet TAKE 1 AND 1/2 TABLETS BY MOUTH DAILY 135 Tablet 10/04/19 25 Active DilTIAZem HCl CR (Dilt-XR) 120 MG CAPSULE SR 24 HRIndications: Essential hypertension, benign Take 1 Capsule by mouth daily. 90 Capsule 1 03/17/20 24 025 Discontinued omeprazole (PriLOSEC) 20 MG CAPSULE DELAYED RELEASE TAKE 1 CAPSULE BY MOUTH TWICE DAILY 180 Capsule 07/04/20 24 025 Discontinued citalopram (CeleXA) 20 MG Tablet TAKE 1 AND 1/2 TABLETS BY MOUTH DAILY 135 Tablet 07/04/20 24 025 Discontinued Active Problems Problem Noted Date Diagnosed Date Chronic bilateral low back pain without sciatica 03/17/2024 Chronic left shoulder pain 03/17/2024 Hyperglycemia 12/16/2023 Bilateral lower extremity edema 11/24/2022 Tobacco use 09/24/2022 Other male erectile dysfunction 06/13/2021 Essential hypertension, benign 03/08/2021 Other hyperlipidemia 03/08/2021 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 03/08/2021 Overview (08/25/2024): Stent x 2- 2021, Stent x 1- 2024 Dysthymia 03/08/2021 H/O heart transplant 03/08/2021 Mild intermittent asthma without complication GERD without esophagitis 03/08/2021 Resolved Problems Problem Noted Date Diagnosed Date Resolved Date Acute kidney injury 06/05/2023 09/09/19 24 Pyelonephritis 06/04/2023 09/09/2023 Centrilobular emphysema 09/24/2022 11/0 01/2023 Encounters Date Type Department Care Team Description 10/03/2024 Refill [facility] [address] [place] [address] Yenni Jiménez PAC Medication Refill 09/18/2024 Refill [facility] [address] [place] [address] Abhay Plascencia MD Medication Refill 08/25/2024 9:00 AM OIL HEAT TECHNICIAN Office Visit [facility] [address] [place] [address] Abhay Plascencia MD Essential hypertension, benign (Primary Dx); Coronary artery disease involving andreafski coronary artery of andreafski heart without angina pectoris; Urinary urgency; Other hyperlipidemia; Mild intermittent asthma without complication; GERD without esophagitis; Dysthymia Discharge Disposition: Discharged to home or Selfcare 08/25/2024 Results Follow-Up [facility] [address] [facility] [place] [phone] Abhay Plascencia MD 08/25/2024 Travel from Last 3 Months Immunizations Immunization Administration Dates Next Due Hepatitis B Vaccine 03/21/2005,02/18/2005 Influenza Vaccine 04/08/2016 Influenza Vaccine, MDCK,quad rivalent, pres free 05/26/2019 Influenza Vaccine, Quadrivalent, PF 10/2022,06/23/2022,06/13/2021,04/30,04/17/2018 Influenza Vaccine,unspecifie d Formulation 05/17/2021 Influenza, Injectable, Quadrivalent 05/20/2015 Influenza, Seasonal, Injecta ble, Undefined 04/19/2017 Influenza,Split Virus,Trivalent,Injectable,PF 06/20/2024 Pneumococcal Vaccine Adult - 23 Valent 4 Pneumococcal conjugate PCV20 , polysaccharide [id number] conjugate, adjuvant, PF 03/19/2022 TDAP Vaccine 11/14/2016 Family History Medical History Relation Name Comments Other-comment Brother 1 Hema DVT to leg No Known Problems Brother 2 [place] Diabetes Father Heart Disease Father Stroke Father Heart Attack Mother Pacemaker Mother No Known Problems Sister Margot Relation Name Status Comments Brother 1 Hema Alive Brother 2 Fadi Alive Father Mother Sister Margot Alive Social History Tobacco Use Types Packs/Day Years Used Date Smoking Tobacco: Former Cigarettes 2 31.8 1 992 - 06/07/2023 Passive Smoke Exposure: Current Smokeless Tobacco: Never Tobacco Cessation:Counseling Given: No Comments:Quit for 5 years but started again Alcohol Use Standard Drinks/Week Comments Not Currently 0 (1 standard drink = 0.6 oz pure alcohol) Socially 2-3 drinks [place] Hard Lemonades [facility] [employer] Answer Date Recorded In the past 12 months has th e electric, gas, oil, or water company [...] often do you attend chur ch or sabianist services? Never 09/09/2023 Do you belong to any clubs o r organizations such as tenriism groups, unions, fraternal or athletic groups, or [...] Recorded Total Score - Questions 1-9 0 08/04 [facility] - Occupational Stress Questionnaire Answer Date [...] place to sleep or slept in a fpc (including now)? No 09/09/2023 Education Answer Date [...] Sign Reading Time Taken Comments Blood Pressure 124/72 08/25/2024 8:50 AM OIL HEAT TECHNICIAN Pulse 84 08/25/2024 8:50 AM OIL HEAT TECHNICIAN Temperature 36.5 C (97.7 F) 08/25/2024 8:50 AM OIL HEAT TECHNICIAN Respiratory Rate 12 03/17/2024 11:03 AM CDT Oxygen Saturation 96% 08/25/2024 8:50 AM OIL HEAT TECHNICIAN Inhaled Oxygen Concentration - - Weight 68.5 kg (151 lb) 08/25/2024 8:50 AM OIL HEAT TECHNICIAN Height 162.6 cm (5' 4 ) 08/25/2024 8:50 AM OIL HEAT TECHNICIAN Body Mass Index 25.92 08/25/2024 8:50 AM OIL HEAT TECHNICIAN Plan of Treatment Upcoming Encounters Date Type Department Care Team (Late st Contact Info) Description 10/24/2024 9:00 AM CDT Office Visit [facility] Internal Medicine [facility] [address] [place] [address] Abhay Plascencia MD [address] [place] [address] 11/23/2024 10:15 AM CDT Office Visit [facility] Internal [facility] [address] [place] [phone] Abhay Plascencia MD [address] [place] [address] Health Maintenance Due Date Last Done Comments Hepatitis C Virus (HCV) Screening 1974 Zoster Immunization (1 of 2) 1993 Hepatitis B Immunization (3 of 3 - 19+ 3-dose series) 08/21/2005 03/21/2005, 02/18/2005 Colonoscopy 2019 Immunochemical Fecal Occult Blood 01/19/2024 SARS-COV-2 Immunization ( season) 2024 07/23/2021, 09/24/2020, 08/27/2020 Cologuard 08/14/2025 08/14/2022 Colorectal Cancer Screening 08/14/2025 Td Immunization Every 10 Years (Adults With 1 Tdap) 11/14/2026 11/14/2016 Respiratory Syncytial Virus (RSV) Immunization (Adult) (1 - 1-dose 75+ series) 2049 DTaP/Tdap/Td Immunization Discontinued 11/14/2016 Pneumococcal Immunization (50+ years) Completed 03/19/2022, 05/07/2004 Pneumococcal Immunization Combined Discontinued 03/19/2022, 05/07/2004 Influenza Immunization Completed , 06/05/2023, 06/03/2023, Additional history exists Lung Cancer Screening Discontinued Meningococcal Immunization (ACWY) Aged Out No longer eligible based on patient's age to complete this topic Rotavirus Immunization Aged Out No lo nger eligible based on patient's age to complete this topic Procedures Procedure Name Priority Date/Time Associated Diagnosis Comments POCT UA NON-AUTOMATED W/O MICRO Routine 08/25/2024 9:10 AM OIL HEAT TECHNICIAN Urinary urgency COLOGUARD Routine 08/14/2022 10:40 AM OIL HEAT TECHNICIAN Screening for colorectal cancer from Last 3 Months or Most Recently Relevant to Health Maintenance Results * (ABNORMAL) POCT UA NON-AUTOMATED W/O MICRO (08/25/2024 9:10 AM OIL HEAT TECHNICIAN) POC UA SPECIFIC GRAVITY 1.025 URINE PH 6.0 5.0 - 9.0 UR, LEUKOCYTES Negative Negative Trista/uL POC URINE NITRITE Negative Negative UR, PROTEIN Negative Negative mg/dL UR, GLUCOSE Normal Negative, Normal mg/dL UR, KETONE Negative Negative mg/dL UR, UROBILINOGEN 1.0 mg/dL Norm, 0.2 mg/dL, 1.0 mg/dL mg/dL UR, BILIRUBIN Negative Negative mg/dL POC URINE BLOOD (NON HEMOLYZED) about 50 Fantasma/ L(A) not applicable, Negative Fantasma/uL POC URINE HEMOGLOBIN (BLOOD HEMOLYZED about 50 Fantasma/ L(A) Negative, not applicable Fantasma/uL POC URINE COLOR Dark Yellow POC URINE CLARITY Slightly Hazy 08/25/2024 9:10 AM OIL HEAT TECHNICIAN us Abhay Plascencia MD POINT OF CARE TESTING (MANU AL) Final Result * COLOGUARD (08/14/2022 10:40 AM OIL HEAT TECHNICIAN) Cologuard Negative Negative [facility] Comment: NEGATIVE TEST RESULT. A negative Cologuard result indicates a low likelihood that a colorectal cancer (CRC) or advanced adenoma (adenomatous polyps with more advanced pre-malignant features) is present. The chance that a person with a negative Cologuard test has a colorectal cancer is less than 1 in 1500 (negative predictive value >99.9%) or has an advanced adenoma is less than 5.3% (negative predictive value 94.7%). These data are based on a prospective cross-sectional study of 10,000 individuals at average risk for colorectal cancer who were screened with both Cologuard and colonoscopy. (Vance Cunningham al, N Engl J Med 2014;370(14):8872-0006) The normal value (reference range) for this assay is negative. COLOGUARD RE-SCREENING RECOMMENDATION: Periodic colorectal cancer screening is an important part of preventive healthcare for asymptomatic individuals at average risk for colorectal cancer. Following a negative Cologuard result, the [place] Cancer Society and U.S. Multi-Society Task Force screening guidelines recommend a Cologuard re-screening interval of 3 years. References: [place] [employer] Guideline for Colorectal Cancer Screening: https://www.cancer.org/cancer/oifsj-jrckdt-dlqqdo/eibwzwjqv-nolybanxg-dwtkoft/ acs-recommendations.html.; Fidel DK, Jean Claude CR, Ricardo CuetoK, Colorectal Cancer Screening: Recommendations for Physicians and Patients from the U.S. Multi-Society Task Force on Colorectal Cancer Screening , Am J Gastroenterology 2017; 112:9031-8801. TEST DESCRIPTION: Composite algorithmic analysis of stool DNA-biomarkers with hemoglobin immunoassay. Quantitative values of individual biomarkers are not reportable and are not associated with individual biomarker result reference ranges. Cologuard is intended for colorectal cancer screening of adults of either sex, 45 years or older, who are at average-risk for colorectal cancer (CRC). Cologuard has been approved for use by the U.S. FDA. The performance of Cologuard was established in a cross sectional study of average-risk adults aged 50-84. Cologuard performance in patients ages 45 to 49 years was estimated by sub-group analysis of near-age groups. Colonoscopies performed for a positive result may find as the most clinically significant lesion: colorectal cancer [4.0%], advanced adenoma (including sessile serrated polyps greater than or equal to 1cm diameter) [20%] or non- advanced adenoma [31%]; or no colorectal neoplasia [45%]. These estimates are derived from a prospective cross-sectional screening study of 10,000 individuals at average risk for colorectal cancer who were screened with both Cologuard and colonoscopy. (Vance Davis et al, N Engl J Med 2014;370(14):2902-5922.) Cologuard may produce a false negative or false positive result (no colorectal cancer or precancerous polyp present at colonoscopy follow up). A negative Cologuard test result does not guarantee the absence of CRC or advanced adenoma (pre-cancer). The current Cologuard screening interval is every 3 years. ([place] Cancer Society and U.S. Multi-Society Task Force). Cologuard performance data in a 10,000 patient pivotal study using colonoscopy as the reference method can be accessed at the following location: www.Shopnlist/results. Additional description of the Cologuard test process, warnings and precautions can be found at www.BRANDiD - Shop. Like a Man.ogEvolverrd.com. Stool 08/14/2022 10:4 0 AM OIL HEAT TECHNICIAN 08/16/2022 9:40 AM OIL HEAT TECHNICIAN Abhay Plascencia MD BODY FLUIDS & STOOLS ORDERA BLES Final Result [employer] [address] [place] [address], [employer] [address] [place] [address] from Last 3 Months or Most Recently Relevant to Health Maintenance Insurance MEDICAID [place] MEDICARE C AETNA Advance Directives * Full Code (Latest Code Status on File) Date Activated Date Inactivated Comments 06/04/2023 3:46 PM 06/06/2023 1:14 PM CPR-Full Edgar atment: FULL ARREST: Attempt Resuscitation/CPR wit intubation and mechanical ventilation. PRE-ARREST: Use entire range of life support measures to stabilize the patient. Care Teams Industrial Maintenance Instructor Relationship Specialty Start Date End Date Abhay Plascencia MD [address] [place] [address] PCP - General Internal Medicine 06/26/15 Aguilar Novoa MD [address] [address] Consulting Physician General Surgery 11/11/21 Sanjay Ingram MD [address] [address] Consulting Physician Colon and Rectal Surgery 04/16/22
--- OUTSIDE RECORDS SUMMARY | 2024-10-08 11:05 | XMS_ITS | Encounter Summary ---
Author Organization [facility] Address [address] [place] [address] Phone Care Team Providers Care Olive Grader Name Role Phone Abhay Plascencia MD Primary Care Provider Aguilar Novoa MD Unavailable [phone] Sanjay Ingram MD Unavailable Encounter Details Date Type Department Care Team (Late st Contact Info) Description 01/16/2020 Transcribe Orders [facility] Admitting [address] [place] [address] Doron Valadez MD [address] [address] Heart replaced by transplant (HCC) (Primary Dx) Social History Tobacco Use Types Packs/Day Years Used Date Smoking Tobacco: Former Cigarettes Q uit: 09/16/2016 Smokeless Tobacco: Never Alcohol Use Standard Drinks/Week Comments Yes 0 (1 standard drink = 0.6 oz pur e alcohol) Socially Sex and Gender Information Value Date Recorded Sex Assigned at Not on file Legal Sex Male 8:34 PM CDT Gender Identity Not on file Sexual Orientation Not on file COVID-19 Exposure Response Date Recorded In the last month, have you been in contact with someone who was confirmed or suspected to have Coronavirus / COVID-19? No / Unsure 2020 2:15 PM CDT documented as of this encounter Plan of Treatment Upcoming Encounters Date Type Department Care Team (Late st Contact Info) Description 10/24/2024 9:00 AM CDT Office Visit [facility] Internal Medicine [facility] [address] [place] [address] Abhay Plascencia MD [address] [place] [address] 11/23/2024 10:15 AM CDT Office Visit [facility] Internal Medicine [facility] [address] [place] [address] Abhay Plascencia MD [address] [place] [address] documented as of this encounter Results * TACROLIMUS (2020 2:27 PM CDT) Pathologist [facility] TACROLIMUS/FK50 6 (Prograf) 4.0 ng/mL 01/19/2020 12:39 PM CDT [facility] Blood Venipuncture / Unknown 2020 2:27 PM CDT 2020 4:25 PM CDT Narrative [facility] - 01/19/2020 12:39 PM CDT 12 hour trough target is 5 to 20 ng/mL Performed by [employer] on the [employer] us Doron Valadez MD CHEMISTRY ORDERABLES Final R esult [facility] [address] [place] [address], * (ABNORMAL) BASIC METABOLIC PANEL W/ CALCIUM TOTAL (2020 2:27 PM CDT) Pathologist [facility] SODIUM 136 136 - 144 mmol/L 2020 5:26 PM CDT [facility] POTASSIUM 3.8 3.5 - 5.1 mmol/L 2020 5:26 PM CDT [facility] CHLORIDE 98(L) 100 - 110 mmol/L 2020 5:26 PM CDT [facility] CO2, VENOUS 24 22 - 32 mmol/L 2020 5:26 PM CDT [facility] ANION GAP 17.8 8.0 - 20.0 mmol/L 2020 5:26 PM CDT [facility] GLUCOSE 123(H) 70 - 99 mg/dL 2020 5:26 PM CDT [facility] BUN 16 6 - 20 mg/dL 2020 5:26 PM CDT [facility] CREATININE, BLOOD 0.93 0.80 - 1.30 mg/dL 2020 5:26 PM CDT [facility] BUN/CREATININE RATIO 17 12 - 20 ratio 2020 5:26 PM CDT [facility] CALCIUM 9.3 8.9 - 10.3 mg/dL 2020 5:26 PM CDT [facility] GFR, EST. NONAFRICAN >60 >=60 2020 5:26 PM CDT [facility] GFR, EST. >60 >=60 2020 5:26 PM CDT [facility] Comment: Creatinine Clearance is the preferred criteria for selecting drug dose adjustments in renally impaired patients. The GFR is provided as additional pertinent clinical information. GFR is reported in mL/min/1.73 sq m. Blood Venipuncture / Unknown 2020 2:27 PM CDT 2020 4:24 PM CDT us Doron aVladez MD CHEMISTRY ORDERABLES Final R esult [facility] [address] [place] [address] documented in this encounter Visit Diagnoses Diagnosis Heart replaced by transplant (HCC)- Primary Heart replaced by transplant documented in this encounter Additional Health Concerns Infection Onset Date Last Indicated Resolved Time COVID - 19 03/19/2020 03/19/2020 03/22/2020 8:45 AM CDT COVID - 19 09/17/2021 09/17/2021 10/07/2021 12:1 6 AM GEOTECHNICAL ENGINEERING TECHNICIAN COVID - 19 12/09/2021 12/09/2021 12/29/2021 12:1 6 AM CDT COVID - 19 04/03/2022 04/03/2022 04/13/2022 12:1 6 AM CDT documented as of this encounter Care Teams Olive Grader Relationship Specialty Start Date End Date Abhay Plascencia MD [address] [place] [address] PCP - General Internal Medicine 06/26/15 Aguilar Novoa MD [address] [address] Consulting Physician General Surgery 11/11/21 Sanjay Ingram MD [address] [address] Consulting Physician Colon and Rectal Surgery 04/16/22 documented as of this encounter
--- OUTSIDE RECORDS SUMMARY | 2024-10-08 11:05 | XMS_ITS | Encounter Summary ---
Author Organization [facility] Address [address] [place] [address] Phone Care Team Providers Care Geophysicist Name Role Phone Abhay Plascencia MD Primary Care Provider Aguilar Novoa MD Unavailable [phone] Sanjay Ingram MD Unavailable Encounter Details Date Type Department Care Team (Late st Contact Info) Description 08/25/2024 Results Follow-Up [facility] - Internal Medicine - [place] [address] [place] [address] Abhay Plascencia MD [address] [address] [facility] [place] [address] Social History Tobacco Use Types Packs/Day Years Used Date Smoking Tobacco: Former Cigarettes 2 31.8 1 992 - 06/07/2023 Passive Smoke Exposure: Current Smokeless Tobacco: Never Comments:Quit for 5 years bu t started again Alcohol Use Standard Drinks/Week Comments Not Currently 0 (1 standard drink = 0.6 oz pure alcohol) Socially 2-3 drinks [employer] Hard Lemonades [facility] Utilities Answer Date Recorded In the [...] often do you attend chur ch or methodist services? Never 09/09/2023 Do you belong to any clubs o r organizations such as yarsani groups, unions, fraternal or athletic groups, or [...] Total Score - Questions 1-9 0 08/04 [facility] - Occupational Stress [...] place to sleep or slept in a mcc (including now)? No 09/09/2023 Education Answer Date [...] on file documented as of this encounter Functional Status * Question Answer Date of Assessment Author Little interest or pleasure in doing things Not at all 08/25/2024 8:52 AM Coby Brand CMA Feeling down, depressed, or hopeless Not at all 08/25/2024 8:52 AM Coby Brand CMA * Over the past 2 weeks, how often have you been bothered by any of the following problems? Question Answer Date of Assessment Author Patient Health Questionnaire -2 Score 0 08/25/2024 8:52 AM Coby Brand CMA documented as of this encounter Plan of Treatment Upcoming Encounters Date Type Department Care Team (Late st Contact Info) Description 10/24/2024 9:00 AM CDT Office Visit [facility] - Internal Medicine [place] [address] [place] [address] Abhay Plascencia MD [address] [place] [address] 11/23/2024 10:15 AM CDT Office Visit [facility] - Internal Medicine [place] [address] [place] [address] Abhay Plascencia MD [address] [place] [address] documented as of this encounter Visit Diagnoses Not on filedocumented in this encounter Additional Health Concerns Assessment Noted Time PHQ-9 Depression Total Score: 0 08/25/19 25 8:52 AM COMPOUND[employer] documented as of this encounter Care Teams Geophysicist Relationship Specialty Start Date End Date Abhay Plascencia MD [address] [place] [address] PCP - General Internal Medicine 06/26/15 Aguilar Novoa MD [address] [address] Consulting Physician General Surgery 11/11/21 Sanjay Ingram MD [address] [address] Consulting Physician Colon and Rectal Surgery 04/16/22 documented as of this encounter
--- OUTSIDE RECORDS SUMMARY | 2024-10-08 11:05 | XMS_ITS | Encounter Summary ---
Author Organization [facility] Address [address] [place] [address] Phone Care Team Providers Care Seedling Sorter Name Role Phone Abhay Plascencia MD Primary Care Provider Aguilar Novoa MD Unavailable [phone] Sanjay Ingram MD Unavailable Encounter Details Date Type Department Care Team (Latest Contact Info) Description 01/27/2022 Transcribe Orders [facility] Patient Access Admitting 1 [place] [address] Valentino Pickens MD [address] [address] Heart replaced by transplant (HCC) (Primary Dx) [...] Description 10/24/2024 9:00 AM CDT [facility] - [place] [address] [place] [address] Abhay Plascencia MD [address] [facility] [place] [address] 11/23/2024 10:15 AM CDT Office Visit [facility] Internal [facility] [address] [place] [address] Abhay Plascecnia MD [address] [facility] [place] [address] documented as of this encounter Results * (ABNORMAL) BASIC METABOLIC PANEL W/ CALCIUM TOTAL (02/05/2022 7:49 AM CDT) SODIUM 134(L) 136 - 144 mmol/L 02/05/2022 8:[address] [facility] POTASSIUM 3.8 3.5 - 5.1 mmol/L 02/05/2022 8:[address] [facility] CHLORIDE 102 100 - 110 mmol/L 02/05/2022 8:[address] [facility] CO2, VENOUS 21(L) 22 - 32 mmol/L 02/05/2022 8:[address] [facility] ANION GAP 14.8 8.0 - 20.0 mmol/L 02/05/2022 8:[address] [facility] GLUCOSE 112(H) 70 - 99 mg/dL 02/05/2022 8:[address] [facility] BUN 15 6 - 20 mg/dL 02/05/2022 8:[address] [facility] CREATININE, BLOOD 0.97 0.80 - 1.30 mg/dL 02/05/2022 8:[address] [facility] BUN/CREATININE RATIO 15 12 - 20 ratio 02/05/2022 8:[address] [facility] CALCIUM 8.6(L) 8.9 - 10.3 mg/dL 02/05/2022 8:55 AM CDT [facility] GFR, EST. NONAFRICAN >60 >=60 02/05/2022 8:55 AM CDT [facility] GFR, EST. >60 >=60 02/05/2022 8:55 AM CDT [facility] Comment: Creatinine Clearance is the preferred criteria for selecting drug dose adjustments in renally impaired patients. The GFR is provided as additional pertinent clinical information. GFR is reported in mL/min/1.73 sq m. IS THE PATIENT REQUIRED TO BE FASTING? No 02/05/2022 8:55 AM CDT [facility] Blood Venipuncture / Unknown 02/05/2022 7:49 AM CDT 02/05/2022 8:17 AM CDT us Valentino Pickens MD CHEMISTRY ORDERABLES Fin al Result Performing Organization Address City/[facility]/ZIP Co de Phone Number [facility] [address] [place] [address] * TACROLIMUS (02/05/2022 7:49 AM CDT) TACROLIMUS/FK50 6 (Prograf) 7.2 ng/mL [facility] ARCH [id number] F 02/06/2022 7:02 AM CDT [facility] Blood Venipuncture / Unknown 02/05/2022 7:49 AM CDT 02/05/2022 8:16 AM CDT Narrative [facility] - 02/06/2022 7:02 AM CDT 12 hour trough target is 5 to 20 ng/mL Performed by [facility] on the Cruz Floral Designer us Valentino Pickens MD CHEMISTRY ORDERABLES Fin al Result [facility] [address] [place] [address], [place] * RAPAMYCIN (SIROLIMUS) LEVEL (02/05/2022 7:49 AM CDT) RAPAMYCIN, BLOOD 5.2 4.5 - 14.0 ng/mL [facility] ARCH [id number] F 02/06/2022 12:42 PM CDT [facility] Blood Venipuncture / Unknown 02/05/2022 7:49 AM CDT 02/05/2022 8:16 AM CDT Narrative [facility] - 02/06/2022 12:42 PM CDT Performed by [facility] on the [employer] us Valentino Pickens MD CHEMISTRY ORDERABLES Fin al Result [facility] [address] [place] [address], documented in this encounter Visit Diagnoses Diagnosis Heart replaced by transplant (HCC)- Primary Heart replaced by transplant documented in this encounter Additional Health Concerns Infection Onset Date Last Indicated Resolved Time COVID - 19 04/03/2022 04/03/2022 04/13/2022 12:1 6 AM CDT Assessment Noted Time PHQ-9 Depression Total Score: 0 06/13/20 21 11:00 AM BACKGROUND INVESTIGATOR documented as of this encounter Care Teams Seedling Sorter Relationship Specialty Start Date End Date Abhay Plascencia MD [address] [place] [address] PCP - General Internal Medicine 06/26/15 Aguilar Novoa MD [address] [address] Consulting Physician General Surgery 11/11/21 Sanjay Ingram MD [address] [address] Consulting Physician Colon and Rectal Surgery 04/16/22 documented as of this encounter
--- OUTSIDE RECORDS SUMMARY | 2024-10-08 11:05 | XMS_ITS | Encounter Summary ---
Author Organization [facility] Address [address] [place] [address] Phone Care Team Providers Care Delinquent Tax Collector Assistant Name Role Phone Abhay Plascencia MD Primary Care Provider Aguilar Novoa MD Unavailable [phone] Sanjay Ingram MD Unavailable Reason for Visit * Reason Comments Medication Refill Encounter Details Date Type Department Care Team (Late st Contact Info) Description 10/16/2023 Refill [facility] - Internal Medicine - [place] [address] [place] [address] Abhay Plascencia MD [address] [facility] [place] [address] Medication Refill Social History Tobacco Use Types Packs/Day Years Used Date Smoking Tobacco: Former Cigarettes 2 31.8 1 992 - 06/07/2023 Passive Smoke Exposure: Current Smokeless Tobacco: Never Comments:Quit for 5 years bu t started again Alcohol Use Standard Drinks/Week Comments Not Currently 0 (1 standard drink = 0.6 oz pure alcohol) Socially 2-3 drinks [place] [facility] Utilities Answer Date Recorded In the past 12 months has [employer] electric, gas, oil, or water company threatened [...] often do you attend chur ch or taoism services? Never 09/09/2023 Do you belong to any clubs o r organizations such as congregation groups, unions, fraternal or athletic groups, or [...] Total Score - Questions 1-9 0 02/2024 [facility] - Occupational Stress Questionnaire Answer Date Recorded [...] Telephone Encounter - Nicolette Byrne RN - 10/16/2023 1:53 PM CDT Medication(s) refilled and signed per [facility] Chronic Medication Refill Standing Order for Pediatricand Adult Patients. Requested Prescriptions Pending Prescriptions Disp Refills omeprazole (PriLOSEC) 20 MG CAPSULE DELAYED RELEASE [Pharmacy Med Name: OMEPRAZOLE 20MG CAPSULES] 180 Capsule 0 Sig: TAKE 1 CAPSULE BY MOUTH TWICE DAILY Proton Pump Inhibitors Protocol Passed - 10/16/2023 1:25 PM Passed - Visit with relevant provider in past 12 months or upcoming 90 days Recent Visits Date Type Provider Dept 09/09/23 Office [facility] [place] 06[facility]08/23 Office Visit Abhay Plascencia MD [facility] [place] 02/11/23 Office Visit Yenni Jiménez PAC [facility] [place] 11/24/22 Office Visit Abhay Plascencia MD [facility] [place] [facility] recent visits within past 365 days and meeting all other requirements Future Appointments Date Type Provider Dept 12/09/23 Appointment [facility] [place] Show[facility] future appointments within next 90 days and meeting all other requirements documented in this encounter Plan of Treatment Upcoming Encounters Date Type Department Care Team (Late st Contact Info) Description 10/24/2024 9:00 AM CDT Office Visit [facility] Internal [facility] [address] [place] [address] Abhay Plascencia MD [address] [place] [address] 11/23/2024 10:15 AM CDT Office Visit [facility] [address] [place] [address] Abhay Plascencia MD [address] [facility] [place] [address] documented as of this encounter Visit Diagnoses Not on filedocumented in this encounter Additional Health Concerns Assessment Noted Time PHQ-9 Depression Total Score: 0 09/09/19 24 10:39 AM TRAFFIC RATE COMPUTER documented as of this encounter Care Teams Delinquent Tax Collector Assistant Relationship Specialty Start Date End Date Abhay Plascencia MD [address] [place] [address] PCP - General Internal Medicine 06/26/15 Aguilar Novoa MD [address] [address] Consulting Physician General Surgery 11/11/21 Sanjay Ingram MD [address] [address] Consulting Physician Colon and Rectal Surgery 04/16/22 documented as of this encounter
--- OUTSIDE RECORDS SUMMARY | 2024-10-08 11:05 | XMS_ITS ---
Author Organization [facility] Address [address] [place] [address] Care Team Providers Care Aws Architect Name Role Phone Abhay Plascencia MD Primary Care Provider [phone] Bhavesh Chin RN Unavailable [phone] Analilia Harris MD Unavailable [phone] Transplant Episode Heart Recipient [facility] ([place], [place]) - [facility] Organ Received: Heart Transplanted on 05/11/2005 Marked as Active Follow-up on 05/11/2005 Heart CoordinatorBhavesh Chin RN Fax: N/A Email: N/A Qawalangin Organ Diagnosis Organ 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 Donor Information Organ ABO Source Meets Risk Criteria HLA Match Mismatches Cross Match Heart Transplanted O DBD No A: B: DR: Heart Donor Serology Results Anti-CMV CMV IgG: Positive Anti-HBcAb HBC Total: Negative HBsAg HBsAg: Negative HBV DNA No results on file Anti-HCV HCV: Negative Anti-HIV I/II No results on file Anti-HTLV I/II HTLV: Negative RPR/VDRL RPR: Negative HBsAb No results on file SARS CoV-2 No results on file Care Team Name Role Phone Fax Email Bhavesh Chin RN Manager Developmental [phone] N/A N/A Phani Xiong Television Mechanic [phone] N/A N/A Bhavesh Chin, apartment maintenanceUsed Car Sales Manager [phone] N/A N/A Hetal Lo Primary Stitch Rubber N/A N/A N/A Events Post-Transplant Pre-Transplant Admitted: 05/11/2005 Referred: 03/27/2003 Transplanted: 05/11/2005 Evaluation began: 5 Discharged: 05/21/2005 Center waitlisted: 5
[2024-10-08 11:16] VITALS: BP 124/68; PULSE 79; RESP 16; TEMP 36.5; O2SAT 100
--- NOTE | 2024-10-08 11:57 | ED.GENADULT ---
HPI - General Adult General Chief complaint: Skin/Abscess/Foreign Body Stated complaint: cyst/boin on top of back Source: patient Mode of arrival: ambulatory Limitations: no limitations History of Present Illness HPI narrative: Patient presents for evaluation of painful swollen lesion to the left side of his back for the last week. He denies any fevers, chills, nausea, vomiting. He is not diabetic. He rates his pain 1/10 in severity. He attempted to open the lesion last night with a sterile needle but was only able to extract a small amount of blood. Related Data Home Medications ?Medication ?Instructions ?Recorded ?Confirmed ?Last Taken ?Type aspirin 81 mg tablet,delayed 81 mg PO DAILY 01/02/23 04/10/24 Unknown History release citalopram 20 mg tablet 30 mg PO DAILY 01/02/23 04/10/24 Unknown History diltiazem HCl 120 mg 120 mg PO DAILY 01/02/23 04/10/24 Unknown History capsule,extended release 24 hr, controlled (DILT-XR) enalapril maleate 10 mg tablet 10 mg PO DAILY 01/02/23 04/10/24 Unknown History omeprazole 20 mg capsule,delayed 20 mg PO BID 01/02/23 04/10/24 Unknown History release rosuvastatin 20 mg tablet 20 mg PO HS 01/02/23 04/10/24 Unknown History sildenafil 50 mg tablet 50 mg PO PRN PRN Erectile 01/02/23 04/10/24 Unknown History Dysfunction sirolimus 0.5 mg tablet 0.5 mg PO EVERY OTHER DAY 01/02/23 04/10/24 Unknown History tacrolimus 0.5 mg capsule, 0.5 mg PO BID 01/02/23 04/10/24 Unknown History immediate-release ticagrelor 90 mg tablet (Brilinta) 90 mg PO BID 01/02/23 04/10/24 Unknown History albuterol sulfate 90 mcg/actuation See Rx Instructions .Route 05/29/23 04/10/24 Unknown History aerosol inhaler .COMPLEX PRN sob Allergies Allergy/AdvReac Type Severity Reaction Status Date / Time Penicillins Allergy Unknown Rash Verified 02/15/24 10:30 Review of Systems Review of Systems: CONSTITUTIONAL: Denies fever, chills, or sweats. EYES: Denies visual changes, redness, or discharge. ENT: Denies rhinorrhea, congestion, sore throat, or otalgia. CARDIOVASCULAR: Denies chest pain, palpitations, or edema. RESPIRATORY: Denies cough or dyspnea. GASTROINTESTINAL: Denies abdominal pain, nausea, vomiting, or diarrhea. GENITOURINARY: Denies dysuria or hematuria. SKIN: Reports painful swollen lesion to the left side of his back MUSCULOSKELETAL: Denies back pain, joint pain, or myalgia. NEUROLOGIC: Denies headache, numbness, dizziness, or weakness. PSYCHIATRIC: Denies anxiety or depression. [facility] Past Medical History Medical History Leukemia Asthma Irritable bowel Anxiety GERD (gastroesophageal reflux disease) Elevated cholesterol Hypertension Surgical History Surgical History Heart transplanted 2005 History of heart artery stent Social History Social History Smoking packs per day: 1 Smoking cigarettes per day: 20.0 Years smoked: 8 Smoking pack-years: 8.00 Smoking status: Current every day smoker Alcohol intake: current Alcohol use details: rare social Substance use type: does not use Living arrangements: with family Gender identity (if verbalized by the patient): Male Exam Narrative: GENERAL: Well-appearing, well-nourished, and in no acute distress. HEAD: Normocephalic, atraumatic. EYES: PERRLA and EOMI. ENT: Nares clear, no rhinorrhea or epistaxis. Mucous membranes moist. Oropharynx without tonsillar hypertrophy exudate or other lesions. Bilateral TMs pearly coronel nonbulging NECK: Supple. No adenopathy or masses. No carotid bruits or JVD CHEST: Clear to auscultation. No respiratory distress. No wheezes rales or rhonchi HEART: Regular rate and rhythm. No murmur heard. Normal peripheral pulses. ABDOMEN: Soft, nontender, nondistended, normal active bowel sounds. EXTREMITIES: Normal range of motion. No edema. SKIN: There is a 2 x 2 cm raised erythematous lesion to the left side of his upper back with 4x 6 cm area of surrounding redness. The central aspect of the lesion is fluctuant NEURO: No focal deficits. Alert and oriented x3. PSYCH: Normal mood and affect. Course Course Emergency Course: This is a 49-year-old male who presented for a painful swollen lesion to the left side of his back. I+ D was performed. No purulence extracted. Small amount of blood from lesion. Wound culture obtained and wound was packed. Advised on wound care. Follow-up with primary provider. Go to the ER for worsening symptoms. Patient in agreement with plan of care Level of Care: Express Care Visit Vital Signs Vital signs: Vital Signs Temperature 36.5 C 10/08/24 11:16 Pulse Rate 79 10/08/24 11:16 Respiratory Rate 16 10/08/24 11:16 Blood Pressure 124/68 10/08/24 11:16 Pulse Oximetry 100 10/08/24 11:16 Oxygen Delivery Room Air 10/08/24 11:16 Temperature 36.5 C 10/08/24 11:16 Pulse Rate 79 10/08/24 11:16 Respiratory Rate 16 10/08/24 11:16 Blood Pressure 124/68 10/08/24 11:16 Pulse Oximetry 100 10/08/24 11:16 Oxygen Delivery Room Air 10/08/24 11:16 Procedures Abscess I/D back: Date of Incision: 10/08/24 Time of Incision: 12:04 Side (if applicable): left Local Anesthetic: lidocaine 1% and with epi Amount of anesthesia used (mL): 5 Technique: incised with #11 blade Amount of fluid expressed (mL): 3 Packing used?: plain I&D Results: Blood Abcess I&D Additional Comments: Wound culture obtained Medical Decision Making Vital Signs Vital Signs: Vital Signs Temperature 36.5 C 10/08/24 11:16 Pulse Rate 79 10/08/24 11:16 Respiratory Rate 16 10/08/24 11:16 Blood Pressure 124/68 10/08/24 11:16 Pulse Oximetry 100 10/08/24 11:16 Oxygen Delivery Room Air 10/08/24 11:16 Temperature 36.5 C 10/08/24 11:16 Pulse Rate 79 10/08/24 11:16 Respiratory Rate 16 10/08/24 11:16 Blood Pressure 124/68 10/08/24 11:16 Pulse Oximetry 100 10/08/24 11:16 Oxygen Delivery Room Air 10/08/24 11:16 Discharge Plan Discharge Clinical Impression: Cutaneous abscess Patient Disposition: Home, Self-Care Condition: Stable Instructions: Antibiotic Form, Abscess (ED), Incision and Drainage (ED) Patient Language: Sami Prescriptions: New cephalexin 500 mg capsule 500 mg PO Q6H 10 Days Qty: 40 0RF sulfamethoxazole-trimethoprim [Bactrim DS] 800-160 mg tablet 1 tablet PO Q12H Qty: 20 0RF No Action sildenafil 50 mg tablet 50 mg PO PRN PRN (Reason: Erectile Dysfunction) citalopram 20 mg tablet 30 mg PO DAILY diltiazem HCl [DILT-XR] 120 mg capsule,ext.rel 24h degradable 120 mg PO DAILY omeprazole 20 mg capsule,delayed release(DR/EC) 20 mg PO BID rosuvastatin 20 mg tablet 20 mg PO HS Brilinta 90 mg tablet 90 mg PO BID tacrolimus 0.5 mg capsule 0.5 mg PO BID sirolimus 0.5 mg tablet 0.5 mg PO EVERY OTHER DAY dicyclomine 10 mg capsule 10 mg PO BID PRN (Reason: abdominal pain) Qty: 14 0RF enalapril maleate 10 mg Tablet 10 mg PO DAILY aspirin [Aspir-81] 81 mg Tablet,Delayed Release (Dr/Ec) 81 mg PO DAILY famotidine [Pepcid] 20 mg tablet 20 mg PO DAILY Qty: 10 0RF albuterol sulfate 90 mcg/actuation HFA aerosol inhaler See Rx Instructions .ROUTE .COMPLEX PRN (Reason: sob) Rx Instructions: as prescribed prednisone 20 mg tablet 20 mg PO BID Qty: 10 0RF Follow-up/Referrals: Temo,Abhay Scales MD [Primary Care Provider] - Time of Disposition: 11:54
== END 2024-10-08 12:05 | disposition home or self-care (01) ==
PROVIDERS: Emergency Provider Nurse Practitioner; PCP Internal Medicine
DX: L02.212 Cutaneous abscess of back [any part, except buttock and flank] (principal); F17.210 Nicotine dependence, cigarettes, uncomplicated; I10 Essential (primary) hypertension; E78.00 Pure hypercholesterolemia, unspecified; K21.9 Gastro-esophageal reflux disease without esophagitis; J45.909 Unspecified asthma, uncomplicated; Z94.1 Heart transplant status; Z95.5 Presence of coronary angioplasty implant and graft; Z85.6 Personal history of leukemia; Z79.82 Long term (current) use of aspirin
CPT/HCPCS: 10061; 87070; 87075; 87205; 99213; G0463; J2004

== ENCOUNTER 2024-11-18 18:45 | Emergency (ER) | payer MEDICARE, MEDICAID, SELFPAY ==
--- NOTE | ~2024-11-18 | XR_ITS ---
XR foot LT min 3V Ordering provider: Hilda Beard NP History: . Injury to 4th/5th left phalanx of left foot. Bruising/pain . Comparison: None. FINDINGS: BONES: Undisplaced fracture of the distal metaphysis of the proximal phalanx of the little toe. No ot her definite fractures seen. JOINT SPACES: Normal. No tarsal coalition. SOFT TISSUES: Normal. IMPRESSION: Fracture in the distal metaphysis of the proximal phalanx of the little toe. Reviewed, dictated and finalized at location A.
--- OUTSIDE RECORDS SUMMARY | 2024-11-18 18:48 | XMS_ITS | Encounter Summary ---
Author Organization [facility] Address [address] [place] [address] Phone Care Team Providers Care Front End Drupal Developer Name Role Phone Abhay Plascencia MD Primary Care Provider Aguilar Novoa MD Unavailable [phone] Sanjay Ingram MD Unavailable Reason for Visit * Reason Comments Medication Refill Encounter Details Date Type Department Care Team (Late st Contact Info) Description 10/03/2023 Refill [facility] - Internal Medicine - [place] [address] [place] [address] Abhay Plascencia MD [address] [facility] [place] [address] Medication Refill Social History Tobacco Use Types Packs/Day Years Used Date Smoking Tobacco: Former Cigarettes 2 31.8 1 992 - 06/07/2023 Passive Smoke Exposure: Current Smokeless Tobacco: Never Comments:Quit for 5 years bu t started again Alcohol Use Standard Drinks/Week Comments Not Currently 0 (1 standard drink = 0.6 oz pure alcohol) Socially 2-3 drinks [place] [employer] Utilities Answer Date Recorded In the past 12 months has [employer] electric, gas, oil, or water company threatened [...] often do you attend chur ch or gnosticist services? Never 09/09/2023 Do you belong to any clubs o r organizations such as pentecostalism groups, unions, fraternal or athletic groups, or [...] Total Score - Questions 1-9 0 02/2024 [facility] - Occupational Stress Questionnaire Answer Date [...] 06/08/23 Office Visit Abhay Plascencia MD [facility] [place] Showing recent visits within past 182 days and meeting all other requirements Future Appointments Date Type Provider Dept 12/09/23 Appointment Abhay Plascencia MD [facility] Showing future appointments within next 90 days and meeting all other requirements Passed - Patient has established therapy with Citalopram for at least 6 months INSPECTOR documented in this encounter Plan of Treatment Upcoming Encounters Date Type Department Care Team (Late st Contact Info) Description 01/25/2025 8:45 AM CDT [facility] [place] [address] [place] [address] Abhay Plascencia MD [address] [place] [address] documented as of this encounter Visit Diagnoses Not on filedocumented in this encounter Additional Health Concerns Assessment Noted Time PHQ-9 Depression Total Score: 0 09/09/19 10:39 AM TRAM INSPECTOR documented as of this encounter Care Teams Front End Drupal Developer Relationship Specialty Start Date End Date Abhay Plascencia MD [address] [place] [address] PCP - General Internal Medicine 06/26/15 Aguilar Novoa MD [address] [address] Consulting Physician General Surgery 11/11/21 Sanjay Ingram MD #[address] [address] Consulting Physician Colon and Rectal Surgery 04/16/22 documented as of this encounter
--- OUTSIDE RECORDS SUMMARY | 2024-11-18 18:48 | XMS_ITS | Encounter Summary ---
Author Organization [facility] Address [address] [place] [address] Phone Care Team Providers Care Parole Hearing Officer Name Role Phone Abhay Plascencia MD Primary Care Provider [phone] Bhavesh Chin RN Unavailable Aanlilia Harris MD Unavailable [phone] Encounter Details Date Type Department Care Team (Late st Contact Info) Description 05/19/2023 Telephone [facility] Cardiology [address] [facility] 8th [place] [address] [place] [address] Avani Razo Social History Tobacco [...] on file Legal Sex Male 1:54 AM ARTIST SUSPECT Gender Identity Not on file Sexual Orientation Not on file documented as of this encounter Plan of Treatment Not on file documented as of this encounter Visit Diagnoses Not on filedocumented in this encounter Care Teams Parole Hearing Officer Relationship Specialty Start Date End Date Abhay Plascencia MD [address] [place] [address] PCP - General 05/28/17 Bhavesh Chin RN [address] [address] Packaging Materials Inspector 07/26/18 Analilia Harris MD [address] [address] Consulting Physician Gastroenterology 04/28/21 documented as of this encounter
--- OUTSIDE RECORDS SUMMARY | 2024-11-18 18:48 | XMS_ITS | Encounter Summary ---
Author Organization [facility] Address [address] [place] [address] Phone Care Team Providers Care Installation Manager Name Role Phone Abhay Plascencia MD Primary Care Provider Aguilar Novoa MD Unavailable [phone] Sanjay Ingram MD Unavailable Encounter Details Date Type Department Care Team (Late st Contact Info) Description 01/16/2020 Transcribe Orders [facility] Admitting [address] [place] [address] Doron Valadez MD [address] [address] Heart replaced by transplant (HCC) (Primary Dx) [...] Description 01/25/2025 8:45 AM CDT Office Visit [facility] - Internal Medicine - [place] [address] [place] [id number] Abhay Plascencia MD [address] [place] [address] documented as of this encounter Results * TACROLIMUS (2020 2:27 PM CDT) Pathologist [facility] TACROLIMUS/FK50 6 (Prograf) 4.0 ng/mL 01/19/2020 12:[address] [facility] Blood Venipuncture / Unknown 2020 2:27 PM CDT 2020 4:25 PM CDT Narrative [facility] - 01/19/2020 12:39 PM CDT 12 hour trough target is 5 to 20 ng/mL Performed by CMIA on the Cruz Combination Machine Tender us Doron Valadez MD CHEMISTRY ORDERABLES Final R esult [facility] [address] [place] [address], * (ABNORMAL) BASIC METABOLIC PANEL W/ CALCIUM TOTAL (2020 2:27 PM CDT) Pathologist [facility] SODIUM 136 136 - 144 mmol/L 2020 5:26 PM CDT [facility] POTASSIUM 3.8 3.5 - 5.1 mmol/L 2020 5:26 PM CDT [facility] CHLORIDE 98(L) 100 - 110 mmol/L 2020 5:[address] [facility] CO2, VENOUS 24 22 - 32 mmol/L 2020 5:26 PM CDT [facility] ANION GAP 17.8 8.0 - 20.0 mmol/L 2020 5:26 PM CDT [facility] GLUCOSE 123(H) 70 - 99 mg/dL 2020 5:26 PM CDT [facility] BUN 16 6 - 20 mg/dL 2020 5:26 PM CDT [facility] CREATININE, BLOOD 0.93 0.80 - 1.30 mg/dL 2020 5:26 PM CDT [facility] BUN/CREATININE RATIO 17 12 - 20 ratio 2020 5:26 PM CDT [facility] CALCIUM 9.3 8.9 - 10.3 mg/dL 2020 5:26 PM CDT [facility] GFR, EST. NONAFRICAN >60 >=60 2020 5:26 PM CDT [facility] GFR, EST. >60 >=60 2020 5:26 PM CDT [facility] Comment: Creatinine Clearance is the preferred criteria for selecting drug dose adjustments in renally impaired patients. The GFR is provided as additional pertinent clinical information. GFR is reported in mL/min/1.73 sq m. Blood Venipuncture / Unknown 2020 2:27 PM CDT 2020 4:24 PM CDT us Doron Valadez MD CHEMISTRY ORDERABLES Final R esult [facility] [address] [place] [address] documented in this encounter Visit Diagnoses Diagnosis Heart replaced by transplant (HCC)- Primary Heart replaced by transplant documented in this encounter Additional Health Concerns Infection Onset Date Last Indicated Resolved Time COVID - 19 03/19/2020 03/19/2020 03/22/2020 8:45 AM CDT COVID - 19 09/17/2021 09/17/2021 10/07/2021 12:1 6 AM CLIENT SERVICE ASSOCIATE COVID - 19 12/09/2021 12/09/2021 12/29/2021 12:1 6 AM CDT COVID - 19 04/03/2022 04/03/2022 04/13/2022 12:1 6 AM CDT documented as of this encounter Care Teams Installation Manager Relationship Specialty Start Date End Date Abhay Plascencia MD [address] [place] [address] PCP - General Internal Medicine 06/26/15 Aguilar Novoa MD [address] [address] Consulting Physician General Surgery 11/11/21 Sanjay Ingram MD [address] [address] Consulting Physician Colon and Rectal Surgery 04/16/22 documented as of this encounter
--- OUTSIDE RECORDS SUMMARY | 2024-11-18 18:48 | XMS_ITS | Encounter Summary ---
Author Organization [facility] Address [address] [place] [address] Phone Care Team Providers Care Chro Name Role Phone Abhay Plascencia MD Primary Care Provider Aguilar Novoa MD Unavailable Sanjay Ingram MD Unavailable Reason for Visit * Reason Comments Medication Refill Encounter Details Date Type Department Care Team (Late st Contact Info) Description 10/22/2020 Refill [facility] - [place] [address] [place] [address] Abhay Plascencia MD [address] [facility] [place] [address] Medication Refill Social History Tobacco [...] COVID-19? No / Unsure 09/22/2020 11:09 AM VENDING STAND SUPERVISOR documented as of this encounter Miscellaneous Notes * Telephone Encounter - Jennie Donald RN - 10/22/2020 7:53 AM CDT Please review and sign. documented in this encounter Plan of Treatment Upcoming Encounters Date Type Department Care Team (Late st Contact Info) Description 01/25/2025 8:45 AM CDT Office Visit [facility] Medical Group - Internal Medicine - [place] [address] [place] [address] Abhay Plascencia MD [address] [place] [address] documented as of this encounter Visit Diagnoses Not on filedocumented in this encounter Additional Health Concerns Infection Onset Date Last Indicated Resolved Time COVID - 19 09/17/2021 09/17/2021 10/07/2021 12:1 6 AM VENDING STAND SUPERVISOR COVID - 19 12/09/2021 12/09/2021 12/29/2021 12:1 6 AM CDT COVID - 19 04/03/2022 04/03/2022 04/13/2022 12:1 6 AM CDT Assessment Noted Time PHQ-9 Depression Total Score: 0 04/30/20 2:00 PM CDT documented as of this encounter Care Teams Chro Relationship Specialty Start Date End Date Abhay Plascencia MD [address] [place] [address] PCP - General Internal Medicine 06/26/15 Aguilar Novoa MD #[address] [address] Consulting Physician General Surgery 11/11/21 Sanjay Ingram MD #[address] [address] Consulting Physician Colon and Rectal Surgery 04/16/22 documented as of this encounter
--- OUTSIDE RECORDS SUMMARY | 2024-11-18 18:48 | XMS_ITS | Encounter Summary ---
Author Organization [facility] Address [address] [place] [address] Phone Care Team Providers Care Quill Skinner Name Role Phone Abhay Plascencia MD Primary Care Provider Aguilar Novoa MD Unavailable [phone] Sanjay Ingram MD Unavailable Reason for Visit * Reason Comments Medication Refill Encounter Details Date Type Department Care Team (Late st Contact Info) Description 10/30/2022 Refill [facility] - [place] [address] [place] [address] Abhay Plascencia MD [address] [facility] [place] [address] Medication Refill Social History Tobacco Use Types Packs/Day Years Used Date Smoking Tobacco: Every Day Cigarettes 2 33.3 Started: 1991 Passive Smoke Exposure: Current Smokeless [...] Description 01/25/2025 8:45 AM CDT Office Visit [facility] - Internal Medicine [facility] [address] [place] [address] Abhay Plascencia MD [address] [facility] [place] [address] documented as of this encounter Visit Diagnoses Not on filedocumented in this encounter Additional Health Concerns Assessment Noted Time PHQ-9 Depression Total Score: 6 03/19/20 22 1:32 PM CDT documented as of this encounter Care Teams Quill Skinner Relationship Specialty Start Date End Date Abhay Plascencia MD [address] [place] [address] PCP - General Internal Medicine 06/26/15 Aguilar Novoa MD [address] [address] Consulting Physician General Surgery 11/11/21 Sanjay Ingram MD [address] [address] Consulting Physician Colon and Rectal Surgery 04/16/22 documented as of this encounter
--- OUTSIDE RECORDS SUMMARY | 2024-11-18 18:48 | XMS_ITS | Encounter Summary ---
Author Organization [facility] Address [address] [place] [address] Phone Care Team Providers Care Manager Zone Name Role Phone Abhay Plascencia MD Primary Care Provider Aguilar Novoa MD Unavailable [phone] Sanjay Ingram MD Unavailable Reason for Visit * Reason Comments Medication Refill Encounter Details Date Type Department Care Team (Late st Contact Info) Description 10/30/2022 Refill [facility] - Internal Medicine - [place] [address] [place] [address] Abhay Plascencia MD [address] [facility] [place] [address] Medication Refill Social History Tobacco [...] Description 01/25/2025 8:45 AM CDT Office Visit [facility] Medical [facility] - Internal Medicine [facility] [address] [place] [address] Abhay Plascencia MD [address] [facility] [place] [address] documented as of this encounter Visit Diagnoses Not on filedocumented in this encounter Additional Health Concerns Assessment Noted Time PHQ-9 Depression Total Score: 6 03/19/20 22 1:32 PM CDT documented as of this encounter Care Teams Manager Zone Relationship Specialty Start Date End Date Abhay Plascencia MD [address] [place] [address] PCP - General Internal Medicine 06/26/15 Aguilar Novoa MD [address] [address] Consulting Physician General Surgery 11/11/21 Sanjay Ingram MD [address] [address] Consulting Physician Colon and Rectal Surgery 04/16/22 documented as of this encounter
--- OUTSIDE RECORDS SUMMARY | 2024-11-18 18:48 | XMS_ITS | Clinical Summary ---
Author Organization [facility] Address [address] [place] [address] Care Team Providers Care Oil Well Perforator Operator Name Role Phone Abhay Plascencia MD Primary Care Provider [phone] Bhavesh Chin RN Unavailable [phone] Analilia Harris MD Unavailable [phone] Allergies Active Allergy Reactions Criticality Noted Date [...] medication again. 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 He needs to continue with Brilinta and aspirin Abnormal stress echo 10/01/2020 Overview (10/01/2020): Added automatically from request for surgery [id number] H/O heart transplant ([facility] 10/01/2020 Overview (10/01/2020): Added automatically from request for surgery [id number] Assessment & Plan (04/27/2021 6:28 AM CDT): [...] on file Legal Sex Male 1:54 AM DRY BOSS Gender Identity Not on file Sexual Orientation Not on file Obstetrics History Last Filed Vital Signs Vital Sign Reading Time Taken Comments Blood Pressure 130/68 08/16/2024 11:45 AM DRY BOSS Pulse 75 08/16/2024 11:45 AM DRY BOSS Temperature 36.6 C (97.9 F) 08/16/2024 7:07 AM DRY BOSS Respiratory Rate 22 08/16/2024 11:45 AM DRY BOSS Oxygen Saturation 92% 08/16/2024 11:45 AM DRY BOSS Inhaled Oxygen Concentration - - Weight 69.4 kg (153 lb) 08/16/2024 7:07 AM DRY BOSS Height 162.6 cm (5' 4 ) 08/16/2024 7:07 AM DRY BOSS Body Mass Index 26.26 08/16/2024 7:07 AM DRY BOSS Plan of Treatment Health Maintenance Due Date [...] history exists Medical Devices Implanted Type Area First Cook Device Identifier Shelf Expiration Date Model / Serial / Lot Medtronic U[employer] X [id number] Resolute Swapnil 2.25mm 2.1-2.7fr 26mm 140cm Rapid Exchange - [id number] - [id number] Implanted:Qty: 1 on 10/12/2020 by Missael Fuentes MD at [facility] Stent Medtronic Inc 04/11/2022 [id number] / [id number] / [id number] Medtronic Inc [id number] System 8mm 140cm 2mm Coronary Stent Resolute [place] Extra Small Vessel Biolinx Zotarolimus Cocr Rapid Exchange Radiopaque 1 Access Port Sterile Accepts .014in Guidewire 5fr Guide Catheter - [id number] - [id number] Implanted:Qty: 1 on 10/12/2020 by Missael Fuentes MD at [facility] Stent Medtronic Inc 05/28/2021 [id number] / [id number] / [id number] Biotronik Inc [id number] Stent Coronary De Rx Cocr Ors Msn 2.5x26mm - [id number] - [id number] Implanted:Qty: 1 on 10/25/2021 by Missael Fuentes MD at [facility] Stent Biotronik Inc 05/29/2023 [id number] / [id number] / [id number] GeoOP [facility] [id number] Angio-Seal Evolution 6fr .035in Guidewire Bypass Tube Suture - [id number] - [id number] Implanted:Qty: 1 on 10/12/2020 by Missael Fuentes MD at [facility] Netotiate 07/02/2021 [id number] / [id number] / [id number] Medtronic Card Vasc Surgery 3.0 X 12mm [place] Schleicher Rx Coronary Stent [id number] - [id number] - [id number] Implanted:Qty: 1 on 08/16/2024 by Missael Fuentes MD at [facility] Right: Coronary Artery Medtronic Card Vasc Surgery 02/10/2027 [id number] / [id number] / Medtronic Card Vasc Surgery 3.0 X 12mm [place] Schleicher Rx Coronary Stent [id number] - [id number] - [id number] Implanted:Qty: 1 on 08/16/2024 by Missael Fuentes MD at [facility] Medtronic Card Vasc Surgery 02/10/2027 [id number] / [id number] / [id number] Insurance [facility] [employer] [facility] [employer] Advance Directives For more information, please contact: [phone] * Full Code (Latest Code Status on [...] 11:43 AM 10/25/2021 8:12 PM Care Teams Oil Well Perforator Operator Relationship Specialty Start Date End Date Abhay Plascencia MD [address] [facility] [place] [address] PCP - General 05/28/17 Bhavesh Chin, RN [address] [address] Career Development Manager 07/26/18 Analilia Harris MD [address] [address] Consulting Physician Gastroenterology 04/28/21
--- OUTSIDE RECORDS SUMMARY | 2024-11-18 18:48 | XMS_ITS | Encounter Summary ---
Author Organization [facility] Address [address] [place] [address] Phone Care Team Providers Care Health Therapist Name Role Phone Abhay Plascencia MD Primary Care Provider Aguilar Novoa MD Unavailable Sanjay Ingram MD Unavailable Reason for Visit * Reason Comments Medication Refill Encounter Details Date Type Department Care Team (Late st Contact Info) Description 06/12/2020 Refill [facility] - [place] [address] [place] [address] Abhay Plascencia MD [address] [facility] [place] [address] Medication Refill Social History [...] COVID-19? No / Unsure 06/05/2020 9:04 AM MANAGER BUSINESS INFORMATION documented as of this encounter Miscellaneous Notes * Telephone Encounter - Jennie Donald RN - 06/12/2020 8:15 AM CST Please review and sign. GER BUSINESS INFORMATION documented in this encounter Plan of Treatment Upcoming Encounters Date Type Department Care Team (Late st Contact Info) Description 01/25/2025 8:45 AM CDT Office Visit [facility] [address] [place] [address] Abhay Plascencia MD [address] [facility] [place] [address] documented as of this encounter Visit Diagnoses Not on filedocumented in this encounter Additional Health Concerns Infection Onset Date Last Indicated Resolved Time COVID - 19 09/17/2021 09/17/2021 10/07/2021 12:1 6 AM MANAGER BUSINESS INFORMATION COVID - 19 12/09/2021 12/09/2021 12/29/2021 12:1 6 AM CDT COVID - 19 04/03/2022 04/03/2022 04/13/2022 12:1 6 AM CDT Assessment Noted Time PHQ-9 Depression Total Score: 0 04/30/20 20 2:00 PM CDT documented as of this encounter Care Teams Health Therapist Relationship Specialty Start Date End Date Abhay Plascencia MD [address] [place] [address] PCP - General Internal Medicine 06/26/15 Aguilar Novoa MD [address] [address] Consulting Physician General Surgery 11/11/21 Sanjay Ingram MD #[address] [address] Consulting Physician Colon and Rectal Surgery 04/16/22 documented as of this encounter
--- OUTSIDE RECORDS SUMMARY | 2024-11-18 18:48 | XMS_ITS | Encounter Summary ---
Author Organization [facility] Address [address] [place] [address] Phone Care Team Providers Care Technology Officer Name Role Phone Abhay Plascencia MD Primary Care Provider Aguilar Novoa MD Unavailable [phone] Sanjay Ingram MD Unavailable Encounter Details Date Type Department Care Team (Latest Contact Info) Description 12/18/2021 [facility] Ad[facility] [address] [place] [address] Valentino Pickens MD [address] [address] Heart replaced by transplant (HCC) (Primary Dx); [...] Description 01/25/2025 8:45 AM CDT Office Visit [facility] - Internal Medicine [place] [address] [place] [address] Abhay Plascencia MD [address] [place] [address] Scheduled Orders Name Type Priority Associated Diagnoses [...] Total Score: 0 06/13/20 21 11:00 AM RECORDING CLERK documented as of this encounter Care Teams Technology Officer Relationship Specialty Start Date End Date Abhay Plascencia MD [address] [place] [address] PCP - General Internal Medicine 06/26/15 Aguilar Novoa MD [address] [address] Consulting Physician General Surgery 11/11/21 Sanjay Ingram MD #[address] [address] Consulting Physician Colon and Rectal Surgery 04/16/22 documented as of this encounter
--- OUTSIDE RECORDS SUMMARY | 2024-11-18 18:48 | XMS_ITS | Encounter Summary ---
Author Organization [facility] Address [address] [place] [address] Phone Care Team Providers Care Fiscal Technician Name Role Phone Abhay Plascencia MD Primary Care Provider Aguilar Novoa MD Unavailable [phone] Sanjay Ingram MD Unavailable Reason for Visit * Reason Comments Medication Refill Encounter Details Date Type Department Care Team (Late st Contact Info) Description 10/16/2023 Refill [facility] - Internal Medicine - [place] [address] [place] [address] Abhay Plascencia MD [address] [facility] [place] [place] [address] Medication Refill Social History Tobacco Use Types Packs/Day Years Used Date Smoking Tobacco: Former Cigarettes 2 31.8 1 992 - 06/07/2023 Passive Smoke Exposure: Current Smokeless Tobacco: Never Comments:Quit for 5 years bu t started again Alcohol Use Standard Drinks/Week Comments Not Currently 0 (1 standard drink = 0.6 oz pure alcohol) Socially 2-[address] [place] [address] [facility] Utilities Answer Date Recorded In the past 12 months has [employer] electric, gas, oil, or water company threatened [...] often do you attend chur ch or catholic services? Never 09/09/2023 Do you belong to any clubs o r organizations such as quaker groups, unions, fraternal or athletic groups, or [...] Total Score - Questions 1-9 0 02/2024 [facility] - Occupational Stress Questionnaire Answer Date Recorded [...] Dept 09/09/23 Office Visit Abhay Plascencia MD [facility] [place] 06/08/23 Office Visit Abhay Plascencia MD [facility] [place] 02/11/23 Office Visit Yenni Jiménez PAC [facility] [place] 11/24/22 Office Visit Abhay Plascencia MD [facility] [place] Showing recent visits within past 365 days and meeting all other requirements Future Appointments Date Type Provider Dept 12/09/23 Appointment Abhay Plascencia MD [facility] [place] Showing future appointments within next 90 days and meeting all other requirements documented in this encounter Plan of Treatment Upcoming Encounters Date Type Department Care Team (Late st Contact Info) Description 01/25/2025 8:45 AM CDT [facility] Visit [facility] - [place] [address] [place] [address] Abhay Plascencia MD [address] [place] [address] documented as of this encounter Visit Diagnoses Not on filedocumented in this encounter Additional Health Concerns Assessment Noted Time PHQ-9 Depression Total Score: 0 09/09/19 10:39 AM ARTIFICIAL PEARL MAKER documented as of this encounter Care Teams Fiscal Technician Relationship Specialty Start Date End Date Abhay Plascencia MD [address] [place] [address] PCP - General Internal Medicine 06/26/15 Aguilar Novoa MD [address] [address] Consulting Physician General Surgery 11/11/21 Sanjay Ingram MD #[address] [address] Consulting Physician Colon and Rectal Surgery 04/16/22 documented as of this encounter
--- OUTSIDE RECORDS SUMMARY | 2024-11-18 18:48 | XMS_ITS | Encounter Summary ---
Author Organization [facility] Address [address] [place] [address] Care Team Providers Care Rn Integrity Name Role Phone Abhay Plascencia MD Primary Care Provider [phone] Bhavesh Chin RN Unavailable [phone] Analilia Harris MD Unavailable [phone] Encounter Details Date Type Department Care Team (Late st Contact Info) Description 01/19/2023 Telephone [facility] Medicine [facility] [address] [facility] [address] [place] [address] Abhay Plascencia MD [address] [place] [address] Social History Tobacco Use Types [...] on file Legal Sex Male 1:54 AM MEDICAL PHYSICIST Gender Identity Not on file Sexual Orientation Not on file documented as of this encounter Plan of Treatment Not on file documented as of this encounter Visit Diagnoses Not on filedocumented in this encounter Care Teams Rn Integrity Relationship Specialty Start Date End Date Abhay Plascencia MD [address] [place] [address] PCP - General 05/28/17 Bhavesh Chin, RN [address] [address] Straddle Buggy Operator 07/26/18 Analilia Harris MD [address] [address] Consulting Physician Gastroenterology 04/28/21 documented as of this encounter
--- OUTSIDE RECORDS SUMMARY | 2024-11-18 18:48 | XMS_ITS | Encounter Summary ---
Author Organization [facility] Address [address] [place] [address] Phone Care Team Providers Care Professor Of Latin American Studies Name Role Phone Abhay Plascencia MD Primary Care Provider Aguilar Novoa MD Unavailable [phone] Sanjay Ingram MD Unavailable Encounter Details Date Type Department Care Team (Latest Contact Info) Description 09/10/2023 Transcribe Orders [facility] [address] [place] [address] Valentino Pickens MD [address] [address] Heart replaced by transplant (HCC) (Primary Dx) Social History Tobacco Use Types Packs/Day Years Used Date Smoking Tobacco: Former Cigarettes 2 31.8 1 992 - 06/07/2023 Passive Smoke Exposure: Current Smokeless Tobacco: Never Comments:Quit for 5 years bu t started again Alcohol Use Standard Drinks/Week Comments Not Currently 0 (1 standard drink = 0.6 oz pure alcohol) Socially 2-3 drinks [place] Hard Lemonades [facility] Utilities Answer Date [...] often do you attend chur ch or islam services? Never 09/09/2023 Do you belong to any clubs o r organizations such as mu-ism groups, unions, fraternal or athletic groups, or [...] Questions 1-9 0 02/2024 [facility] - Occupational Stress [...] place to sleep or slept in a skilled nursing (including now)? No 09/09/2023 Education Answer Date [...] [facility] - [facility] - [place] [address] [place] [address] Abhay Plascencia MD [address] [place] [address] documented as of this encounter Results * TACROLIMUS (10/02/2023 12:08 PM CHAIN MENDER) TACROLIMUS/FK50 6 (Prograf) 5.7 ng/mL [place] [facility] [id number] F 10/03/2023 8:12 AM CHAIN MENDER [facility] Blood BLOOD SPECIMEN / Unknown Venipuncture / Unknown 10/02/2023 12:08 PM CHAIN MENDER 10/02/2023 1:06 PM CHAIN MENDER Narrative [facility] - 10/03/2023 8:12 AM CHAIN MENDER A 12-hour tacrolimus trough level goal is patient specific and transplant specific. Trough level goals generally range from 5-15 ng/mL. If there is a question about the tacrolimus therapy or level goal, the transplant team managing the patient's tacrolimus should be contacted. us Valentino Pickens MD CHEMISTRY ORDERABLES Fin al Result Performing Organization Address City/[facility]/ZIP Co de Phone Number [facility] [address] [place] [address], [place] * RAPAMYCIN (SIROLIMUS) LEVEL (10/02/2023 12:08 PM CHAIN MENDER) RAPAMYCIN, BLOOD 4.5 4.5 - 14.0 ng/mL [place] [facility] [id number] F 10/03/2023 12:[address] [facility] Blood BLOOD SPECIMEN / Unknown Venipuncture / Unknown 10/02/2023 12:08 PM CHAIN MENDER 10/02/2023 1:06 PM [address]AIN [address] N[address] [facility] - 10/03/2023 12:47 PM CHAIN MENDER Performed by [facility] the [employer] Compensation Consultant us Valentino Pickens MD CHEMISTRY ORDERABLES Fin al Result Performing Organization Address [facility] Co de Phone Number [facility] [address] [place] [address], [place] documented in this encounter Visit Diagnoses Diagnosis Heart replaced by transplant (HCC)- Primary Heart replaced by transplant documented in this encounter Additional Health Concerns Assessment Noted Time PHQ-9 Depression Total Score: 0 09/09/19 24 10:39 AM CHAIN MENDER documented as of this encounter Care Teams Professor Of Latin American Studies Relationship Specialty Start Date End Date Abhay Plascencia MD [address] [place] [address] PCP - General Internal Medicine 06/26/15 Aguilar Novoa MD [address] [phone] Consulting Physician General Surgery 11/11/21 Sanjay Ingram MD [address] [place] [address] Consulting Physician Colon and Rectal Surgery 04/16/22 documented as of this encounter
--- OUTSIDE RECORDS SUMMARY | 2024-11-18 18:48 | XMS_ITS | Encounter Summary ---
Author Organization [facility] Address [address] [place] [address] Phone Care Team Providers Care Jewelry Consultant Name Role Phone Abhay Plascencia MD Primary Care Provider [phone] Aguilar Novoa MD Unavailable [phone] Sanjay Ingram MD Unavailable Reason for Visit * Reason Comments Medication Refill Encounter Details Date Type Department Care Team (Late st Contact Info) Description 11/05/2023 Refill [facility] - Internal Medicine - [place] [address] [place] [address] Abhay Plascencia MD [address] [facility] [place] [address] Medication Refill Social History Tobacco Use Types Packs/Day Years Used Date Smoking Tobacco: Former Cigarettes 2 31.8 1 992 - 06/07/2023 Passive Smoke Exposure: Current Smokeless Tobacco: Never Comments:Quit for 5 years bu t started again Alcohol Use Standard Drinks/Week Comments Not Currently 0 (1 standard drink = 0.6 oz pure alcohol) Socially 2-3 drinks [place] Hard Lemonades [facility] Utilities Answer Date Recorded In the past 12 months has [employer] electric, gas, oil, or water company threatened [...] often do you attend chur ch or orthodox services? Never 09/09/2023 Do you belong to [...] Total Score - Questions 1-9 0 02/2024 [facility] - Occupational Stress Questionnaire Answer Date [...] place to sleep or slept in a residential (including now)? No 09/09/2023 Education Answer Date [...] Dept 09/09/23 Office Visit [facility] [place] 06/08/23 Office Visit Abhay Plascencia MD [facility] [place] 02/11/23 Office Visit Jessy YenniMORENITA Coker [facility] [place] 11/24/22 Office Visit Abhay Plascencia MD [facility] [place] Showing recent visits within past 365 days [...] Visit [facility] - [place] [address] [place] [address] Abhay Plascencia MD [address] [facility] [place] [address] documented as of this encounter Visit Diagnoses Not on filedocumented in this encounter Additional Health Concerns Assessment Noted Time PHQ-9 Depression Total Score: 0 09/09/19 24 10:39 AM CHEMICAL ENGRAVER documented as of this encounter Care Teams Jewelry Consultant Relationship Specialty Start Date End Date Abhay Plascencia MD [address] [place] [address] PCP - General Internal Medicine 06/26/15 Aguilar Novoa MD [address] [address] Consulting Physician General Surgery 11/11/21 Sanjay Ingram MD #2 [facility] [address] [place] [address] Consulting Physician Colon and Rectal Surgery 04/16/22 documented as of this encounter
--- OUTSIDE RECORDS SUMMARY | 2024-11-18 18:48 | XMS_ITS | Encounter Summary ---
Author Organization [facility] Address [address] [place] [address] Phone Care Team Providers Care Needle Setter Name Role Phone Abhay Plascencia MD Primary Care Provider Aguilar Novoa MD Unavailable Sanjay Ingram MD Unavailable Encounter Details Date Type Department Care Team (Late st Contact Info) Description 01/11/2021 Transcribe Orders [facility] Admitting 1 [place] [address] Doron Valadez MD [address] [address] History of heart transplant (HCC) (Primary Dx) [...] Description 01/25/2025 8:45 AM CDT Office Visit [facility] - Internal Medicine [facility] [address] [place] [address] Abhay Plascencia MD [address] [place] [address] documented as of this encounter Results * (ABNORMAL) BASIC METABOLIC PANEL W/ CALCIUM TOTAL (01/22/2021 9:46 AM CDT) SODIUM 136 136 - 144 mmol/L 01/22/2021 10:28 AM CDT [facility] POTASSIUM 4.2 3.5 - 5.1 mmol/L 01/22/2021 10:28 AM CDT [facility] CHLORIDE 103 100 - 110 mmol/L 01/22/2021 10:28 AM CDT [facility] CO2, VENOUS 26 22 - 32 mmol/L 01/22/2021 10:28 AM CDT [facility] ANION GAP 11.2 8.0 - 20.0 mmol/L 01/22/2021 10:28 AM CDT [facility] GLUCOSE 105(H) 70 - 99 mg/dL 01/22/2021 10:28 AM CDT [facility] BUN 7 6 - 20 mg/dL 01/22/2021 10:28 AM CDT [facility] CREATININE, BLOOD 0.85 0.80 - 1.30 mg/dL 01/22/2021 10:28 AM CDT [facility] BUN/CREATININE RATIO 8(L) 12 - 20 ratio 01/22/2021 10:28 AM CDT [facility] CALCIUM 9.4 8.9 - 10.3 mg/dL 01/22/2021 10:28 AM CDT [facility] GFR, EST. NONAFRICAN >60 >=60 01/22/2021 10:28 AM CDT [facility] GFR, EST. >60 >=60 01/22/2021 10:28 AM CDT [facility] Comment: Creatinine Clearance is the preferred criteria for selecting drug dose adjustments in renally impaired patients. The GFR is provided as additional pertinent clinical information. GFR is reported in mL/min/1.73 sq m. IS THE PATIENT REQUIRED TO BE FASTING? 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 COVID - 19 12/09/2021 12/09/2021 12/29/2021 12:1 6 AM CDT COVID - 19 04/03/2022 04/03/2022 04/13/2022 12:1 6 AM CDT Assessment Noted Time PHQ-9 Depression Total Score: 0 04/30/20 20 2:00 PM CDT documented as of this encounter Care Teams Needle Setter Relationship Specialty Start Date End Date Abhay Plascencia MD [address] [place] [address] PCP - General Internal Medicine 06/26/15 Aguilar Novoa MD [address] [address] Consulting Physician General Surgery 11/11/21 Sanjay Ingram MD [address] [address] Consulting Physician Colon and Rectal Surgery 04/16/22 documented as of this encounter
--- OUTSIDE RECORDS SUMMARY | 2024-11-18 18:48 | XMS_ITS | Encounter Summary ---
Author Organization [facility] Address [address] [place] [address] Phone Care Team Providers Care Installment Loan Collector Name Role Phone Abhay Plascencia MD Primary Care Provider [phone] Bhavesh Chin RN Unavailable [phone] Analilia Harris MD Unavailable [phone] Encounter Details Date Type Department Care Team (Late st Contact Info) Description 12/03/2022 Telephone [facility] Cardiology [address] [facility] Advanced Medicine 8th [place] [address] [place] [address] Missael Fuentes MD [address] [place] [address] Social History Tobacco Use Types [...] on file Legal 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
--- OUTSIDE RECORDS SUMMARY | 2024-11-18 18:48 | XMS_ITS | Encounter Summary ---
Author Organization [facility] Address [address] [place] [address] Phone Care Team Providers Care Continuous Linter Drier Operator Name Role Phone Abhay Plascencia MD Primary Care Provider Aguilar Novoa MD Unavailable [phone] Sanjay Ingram MD Unavailable Reason for Visit * Reason Comments Medication Refill Encounter Details Date Type Department Care Team (Late st Contact Info) Description 01/04/2024 Refill [facility] - Internal Medicine - [place] [address] [place] [address] Abhay Plascencia MD [address] [facility] [place] [address] Medication Refill Social History Tobacco Use Types Packs/Day Years Used Date Smoking Tobacco: Former Cigarettes 2 31.8 1 992 - 06/07/2023 Passive Smoke Exposure: Current Smokeless Tobacco: Never Comments:Quit for 5 years bu t started again Alcohol Use Standard Drinks/Week Comments Not Currently 0 (1 standard drink = 0.6 oz pure alcohol) Socially 2-3 drinks [employer] Hard Lemonades [facility] Utilities Answer Date Recorded In the past 12 months has [employer] electric, gas, oil, or water company threatened [...] often do you attend chur ch or bahai services? Never 09/09/2023 Do you belong to any clubs o r organizations such as christianity groups, unions, fraternal or athletic groups, or [...] Total Score - Questions 1-9 0 12/01 [facility] - Occupational Stress Questionnaire Answer Date [...] Miscellaneous Notes * Telephone Encounter - Nicolette Bryne RN - 01/04/2024 9:34 AM CDT Medication [...] 09/09/23 Office Visit Abhay Plascencia MD [facility] [place] Showing recent visits within past 182 days and meeting all other requirements Future Appointments Date Type Provider Dept 03/17/24 Appointment Abhay Plascencia MD [facility] [place] Showing future appointments within next 90 days [...] Office Visit Abhay Plascencia MD [facility] [place] 09/09/23 Office Visit Abhay Plascencia MD [facility] [place] 06/08/23 Office Visit Abhay Plascencia MD [facility] [place] 02/11/23 Office Visit Yenni Jiménez PAC [facility] [place] Showing recent visits within past 365 days and meeting all other requirements Future Appointments Date Type Provider Dept 03/17/24 Appointment Abhay Plascencia MD [facility] [place] Showing future appointments within next 90 days and meeting all other requirements documented in this encounter Plan of Treatment Upcoming Encounters Date Type Department Care Team (Late st Contact Info) Description 01/25/2025 8:45 AM CDT Office Visit [facility] Group - Internal Medicine - [place] [address] [place] [phone] Abhay Plascencia MD [address] [place] [address] documented as of this encounter Visit Diagnoses Not on filedocumented in this encounter Additional Health Concerns Assessment Noted Time PHQ-9 Depression Total Score: 0 12/16/19 11:10 AM CDT documented as of this encounter Care Teams Continuous Linter Drier Operator Relationship Specialty Start Date End Date Abhay Plascencia MD [address] [place] [address] PCP - General Internal Medicine 06/26/15 Aguilar Novoa MD #[address] [address] Consulting Physician General Surgery 11/11/21 Sanjay Ingram MD #[address] [address] Consulting Physician Colon and Rectal Surgery 04/16/22 documented as of this encounter
--- OUTSIDE RECORDS SUMMARY | 2024-11-18 18:48 | XMS_ITS ---
Author Organization [facility] Address [address] [facility] [place] [address] Care Team Providers Care Account Director Name Role Phone Abhay Plascencia MD Primary Care Provider [phone] Bhavesh Chin RN Unavailable [phone] Analilia [place] MD Unavailable [phone] Transplant Episode Heart Recipient [facility] ([place], [place]) - [facility] Organ Received: Heart Transplanted on 05/11/2005 Marked as Active Follow-up on 05/11/2005 Heart CoordinatorBhavesh Chin RN Fax: N/A Email: N/A [place] Organ Diagnosis Organ Primary Contributory Heart Dilated [...] Role Phone Fax Email Bhavesh Chin RN Corporate Strategy Associate [phone] N/A N/A Phani Xiong Mine Engineering Manager [phone] N/A N/A Bhavesh Chin, trailers and motor homes salespersonBuckle Strap Puncher [phone] N/A N/A Hetal Lo Primary Cessation Systems Outreach Specialist N/A N/A N/A Events Post-Transplant Pre-Transplant Admitted: 05/11/2005 Referred: 03/27/2003 Transplanted: 05/11/2005 Evaluation began: 5 Discharged: 05/21/2005 Center waitlisted: 5
--- OUTSIDE RECORDS SUMMARY | 2024-11-18 18:48 | XMS_ITS | Referral Summary ---
Author Organization [facility] Address [address] [place] [address] Care Team Providers Care Sampler Tester Name Role Phone Abhay Plascencia MD Primary Care Provider [phone] Bhavesh hCin RN Unavailable [phone] Analilia Harris MD Unavailable [phone] Allergies Active Allergy Reactions Criticality Noted Date [...] medication again. 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 He needs to continue with Brilinta and aspirin Abnormal stress echo 10/01/2020 Overview (10/01/2020): Added automatically from request for surgery [id number] H/O heart transplant ([facility]) 10/01/2020 Overview (10/01/2020): Added automatically from request for surgery [id number] Assessment & Plan (04/27/2021 6:28 AM CDT): CellCept and Prograf for held at this time waiting for surgical evaluation. Dilated cardiomyopathy 05/06/2018 Essential hypertension 05/06/2018 Assessment & Plan (04/27/2021 6:29 AM CDT): Currently normotensive. Enalapril held due to NPO status. 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 Gender Identity Not on file Sexual Orientation Not on file Last Filed Vital Signs Vital Sign Reading Time Taken Comments Blood Pressure 130/68 08/16/2024 11:45 AM CHUCKING AND SAWING MACHINE OPERATOR Pulse 75 08/16/2024 11:45 AM CHUCKING AND SAWING MACHINE OPERATOR Temperature 36.6 C (97.9 F) 08/16/2024 7:07 AM CHUCKING AND SAWING MACHINE OPERATOR Respiratory Rate 22 08/16/2024 11:45 AM CHUCKING AND SAWING MACHINE OPERATOR Oxygen Saturation 92% 08/16/2024 11:45 AM CHUCKING AND SAWING MACHINE OPERATOR Inhaled Oxygen Concentration - - Weight 69.4 kg (153 lb) 08/16/2024 7:07 AM CHUCKING AND SAWING MACHINE OPERATOR Height 162.6 cm (5' 4 ) 08/16/2024 7:07 AM CHUCKING AND SAWING MACHINE OPERATOR Body Mass Index 26.26 08/16/2024 7:07 AM CHUCKING AND SAWING MACHINE OPERATOR Plan of Treatment Not on file Medical Devices Implanted Type Area Asbestos Microscopist Device Identifier Shelf Expiration Date Model / Serial / Lot Medtronic Usa [employer] X [id number] Resolute Swapnil 2.25mm 2.1-2.7fr 26mm 140cm Rapid Exchange - [id number] - [id number] Implanted:Qty: 1 on 10/12/2020 by Missael Fuentes MD at [facility] Stent Medtronic Inc 04/11/2022 [id number] / [id number] / [id number] Medtronic Inc [id number] System 8mm 140cm 2mm Coronary Stent Resolute Swapnil Extra Small Vessel Biolinx Zotarolimus Cocr Rapid Exchange Radiopaque 1 Access Port Sterile Accepts .014in Guidewire 5fr Guide Catheter - [id number] - [id number] Implanted:Qty: 1 on 10/12/2020 by Missael Fuentes MD at [facility] Stent Medtronic Inc 05/28/2021 [id number] / [id number] / [id number] Biotronik Inc [id number] Stent Coronary De Rx Cocr Ors Msn 2.5x26mm - [id number] - [id number] Implanted:Qty: 1 on 10/25/2021 by Missael Fuentes MD at [facility] Stent Biotronik Inc 05/29/2023 [id number] / [id number] / [id number] Daig [facility] [id number] Angio-Seal Evolution 6fr .035in Guidewire Bypass Tube Suture - [id number] - [id number] Implanted:Qty: 1 on 10/12/2020 by Missael Fuentes MD at [facility] [employer] 07/02/2021 [id number] / [id number] / [id number] Medtronic Card Vasc Surgery 3.0 X 12mm Swapnil [place] Rx Coronary Stent [id number] - [id number] - [id number] Implanted:Qty: 1 on 08/16/2024 by Missael Fuentes MD at [facility] Right: Coronary Artery Medtronic Card Vasc Surgery 02/10/2027 [id number] / [id number] / Medtronic Card Vasc Surgery 3.0 X 12mm Walsh [place] Rx Coronary Stent [id number] - [id number] - [id number] Implanted:Qty: 1 on 08/16/2024 by Sintek, Missael Walter MD at [facility] Medtronic Card Vasc Surgery 02/10/2027 [id number] / [id number] / [id number] Insurance [facility] Advance Directives For more information, please contact: [phone] * Full Code (Latest Code Status on [...] 11:43 AM 10/25/2021 8:12 PM Care Teams Sampler Tester Relationship Specialty Start Date End Date Abhay Plascencia MD [address] [place] [address] PCP - General 05/28/17 Bhavesh Chin, RN [address] [address] Supervisor Wire Rope Fabrication 07/26/18 Analilia [place] MD [address] [address] Consulting Physician Gastroenterology 04/28/21
--- OUTSIDE RECORDS SUMMARY | 2024-11-18 18:49 | XMS_ITS | Encounter Summary ---
Author Organization [facility] Address [address] [place] [address] Phone Care Team Providers Care Dental Treatment Coordinator Name Role Phone Abhay Plascencia MD Primary Care Provider Aguilar Novoa MD Unavailable [phone] Sanjay Ingram MD Unavailable Encounter Details Date Type Department Care Team (Latest Contact Info) Description 01/27/2022 [facility]cribe [facility] Ad[facility] [address] [place] [address] Valentino Pickens MD [address] [address] Heart replaced by transplant (HCC) (Primary Dx) [...] [facility] - [place] [address] [place] [id number] Abhay Plascencia MD [address] [place] [address] documented as of this encounter Results * (ABNORMAL) BASIC METABOLIC PANEL W/ CALCIUM TOTAL (02/05/2022 7:49 AM CDT) SODIUM 134(L) 136 - 144 mmol/L 02/05/2022 8:55 AM CDT [facility] POTASSIUM 3.8 3.5 - 5.1 mmol/L 02/05/2022 8:55 AM CDT [facility] CHLORIDE 102 100 - 110 mmol/L 02/05/2022 8:55 AM CDT [facility] CO2, VENOUS 21(L) 22 - 32 mmol/L 02/05/2022 8:55 AM CDT [facility] ANION GAP 14.8 8.0 - 20.0 mmol/L 02/05/2022 8:55 AM CDT [facility] GLUCOSE 112(H) 70 - 99 mg/dL 02/05/2022 8:55 AM CDT [facility] BUN 15 6 - 20 mg/dL 02/05/2022 8:55 AM CDT [facility] CREATININE, BLOOD 0.97 0.80 - 1.30 mg/dL 02/05/2022 8:55 AM CDT [facility] BUN/CREATININE RATIO 15 12 - 20 ratio 02/05/2022 8:55 AM CDT [facility] CALCIUM 8.6(L) 8.9 - 10.3 mg/dL 02/05/2022 8:55 AM CDT [facility] GFR, EST. NONAFRICAN >60 >=60 02/05/2022 8:55 AM CDT [facility] GFR, EST. >60 >=60 02/05/2022 8:55 AM CDT [facility] Comment: Creatinine Clearance is the preferred criteria for selecting drug dose adjustments in renally impaired patients. The GFR is provided as additional pertinent clinical information. GFR is reported in mL/min/1.73 sq m. IS THE PATIENT REQUIRED TO BE FASTING? No 02/05/2022 8:55 AM CDT [facility] Blood Venipuncture / Unknown 02/05/2022 7:49 AM CDT 02/05/2022 8:17 AM CDT us Valentino Pickens MD CHEMISTRY ORDERABLES Fin al Result Performing Organization Address City/[facility]/ZIP Co de Phone Number [facility] [address] [place] [address] * TACROLIMUS (02/05/2022 7:49 AM CDT) TACROLIMUS/FK50 6 (Prograf) 7.2 ng/mL [facility] ARCH [id number] F 02/06/2022 7:02 AM CDT [facility] Blood Venipuncture / Unknown 02/05/2022 7:49 AM CDT 02/05/2022 8:16 AM CDT Narrative [facility] - 02/06/2022 7:02 AM CDT 12 hour trough target is 5 to 20 ng/mL Performed by [employer] Operator us Valentino Pickens MD CHEMISTRY ORDERABLES Fin al Result [facility] [address] [place] [address], [place] * RAPAMYCIN (SIROLIMUS) LEVEL (02/05/2022 7:49 AM CDT) RAPAMYCIN, BLOOD 5.2 4.5 - 14.0 ng/mL [facility] ARCH [id number] F 02/06/2022 12:42 PM CDT [facility] Blood Venipuncture / Unknown 02/05/2022 7:49 AM CDT 02/05/2022 8:16 AM CDT Narrative [facility] - 02/06/2022 12:42 PM CDT Performed by [employer] us Valentino Pickens MD CHEMISTRY ORDERABLES Fin al Result [facility] [address] [place] [address], documented in this encounter Visit Diagnoses Diagnosis Heart replaced by transplant (HCC)- Primary Heart replaced by transplant documented in this encounter Additional Health Concerns Infection Onset Date Last Indicated Resolved Time COVID - 19 04/03/2022 04/03/2022 04/13/2022 12:1 6 AM CDT Assessment Noted Time PHQ-9 Depression Total Score: 0 06/13/20 21 11:00 AM [employer] documented as of this encounter Care Teams Dental Treatment Coordinator Relationship Specialty Start Date End Date Abhay Plascencia MD [address] [place] [address] PCP - General Internal Medicine 06/26/15 Aguilar Novoa MD [address] [address] Consulting Physician General Surgery 11/11/21 Sanjay Ingram MD [address] [address] Consulting Physician Colon and Rectal Surgery 04/16/22 documented as of this encounter
--- OUTSIDE RECORDS SUMMARY | 2024-11-18 18:49 | XMS_ITS | Clinical Summary ---
Author Organization [facility] Address [address] [place] [address] Phone Care Team Providers Care Garnishment Specialist Name Role Phone Abhay Plascencia MD Primary Care Provider Aguilar Novoa MD Unavailable [phone] Sanjay Ingram MD Unavailable Allergies Active Allergy Reactions Criticality Noted Date Comments Clopidogrel Rash High 12/06/2020 Iodinated Contrast Media Rash High 03/19/2020 Penicillins Rash High 01/05/2018 Hives and rash as an infant, has not taken since Medications aspirin EC 81 MG Tablet Delayed Response Take 81 mg by mouth daily. Active enalapril (VASOTEC) 10 MG Tablet Take 10 mg by mouth 2 times daily. 0 Active Brilinta 90 MG Tablet Take by mouth 2 times daily. 1 Active tacrolimus (PROGRAF) 0.5 MG Capsule TAKE 2 CAPSULES BY MOUTH EVERY MORNING AND 1 CAPSULE EVERY EVENING 1 Active sirolimus (RAPAMUNE) 0.5 MG Tablet Take 0.5 mg by mouth Every other day. 2 Active VITAMIN D PO Take by mouth. Ac tive Cyanocobalamin (VITAMIN B12 PO) Take by mouth. Activ e rosuvastatin (CRESTOR) 20 MG Tablet Take 1 Tablet by mouth nightly. 90 Tablet 3 Active albuterol (Ventolin HFA) 108 (90 Base) MCG/ACT Aerosol Solution take 1-2 Puffs by inhalation every 6 hours as needed for Wheezing. 8.5 g 2 3 Active sildenafil citrate (VIAGRA) 50 MG Tablet Take 1 Tablet by mouth as needed for Erectile Dysfunction. 30 Tablet 4 Active tamsulosin (FLOMAX) 0.4 MG Capsule Take 1 Capsule by mouth daily. 30 Capsule 3 5 Active Dilt-XR 120 MG CAPSULE SR 24 HRIndications: Essential hypertension, benign TAKE 1 CAPSULE BY MOUTH DAILY 90 Capsule 1 5 Active citalopram (CeleXA) 20 MG Tablet TAKE 1 AND 1/2 TABLETS BY MOUTH DAILY 135 Tablet 5 Active omeprazole (PriLOSEC) 20 MG CAPSULE DELAYED RELEASE Take 1 Capsule by mouth 2 times daily. 180 Capsule 5 Active omeprazole (PriLOSEC) 20 MG CAPSULE DELAYED RELEASE TAKE 1 CAPSULE BY MOUTH TWICE DAILY 180 Capsule 5 11/01/19 25 Discontinu ed(Reorder ) omeprazole (PriLOSEC) 20 MG CAPSULE DELAYED RELEASE Take 1 Capsule by mouth 2 times daily. 180 Capsule 5 11/04/19 25 Discontinu ed(Reorder ) Active Problems Problem Noted Date Diagnosed Date Chronic bilateral low back pain without sciatica 03/17/2024 Chronic left shoulder pain 03/17/2024 Hyperglycemia 12/16/2023 Bilateral lower extremity edema 11/24/2022 Tobacco use 09/24/2022 Other male erectile dysfunction 06/13/2021 Essential hypertension, benign 03/08/2021 Other hyperlipidemia 03/08/2021 Coronary artery disease invo lving [place] coronary artery of [place] heart without angina pectoris 03/08/2021 Overview (08/25/2024): Stent x 2- 2021, Stent x 1- 2024 Dysthymia 03/08/2021 H/O heart transplant 03/08/2021 Mild intermittent asthma without complication GERD without esophagitis 03/08/2021 Resolved Problems Problem Noted Date Diagnosed Date Resolved Date Acute kidney injury 06/05/2023 09/09/19 24 Pyelonephritis 06/04/2023 09/09/2023 Centrilobular emphysema 09/24/2022 11/0 01/2023 Encounters Date Type Department Care Team Description 11/03/2024 Refill [facility] [address] [place] [address] Abhay Plascencia MD 10/31/2024 [facility] [address] [place] [address] Abhay Plascencia MD Medication Refill 10/28/2024 Documentation Only [facility] [address] [place] [address] Abhay Plascencia MD 10/24/2024 9:00 AM CDT Office Visit [facility] [address] [place] [address] Abhay Plascencia MD Essential hypertension, benign (Primary Dx); Other hyperlipidemia; Coronary artery disease involving [place] coronary artery of [place] heart without angina pectoris; Mild intermittent asthma without complication; GERD without esophagitis; Dysthymia; Acute right-sided low back pain without sciatica Discharge Disposition: Discharged to home or Selfcare 10/24/2024 Travel 10/03/[facility] [address] [place] [address] Yenni Jiménez, MORENITA Medication Refill 09/18/2024 [facility] [address] [place] [address] Abhay Plascencia MD Medication Refill 08/25/2024 9:00 AM CHECK GRADER [facility] [address] [place] [address] Abhay Plascencia MD Essential hypertension, benign (Primary Dx); Coronary artery disease involving [place] coronary artery of [place] heart without angina pectoris; Urinary urgency; Other hyperlipidemia; Mild intermittent asthma without complication; GERD without esophagitis; Dysthymia Discharge Disposition: Discharged to home or Selfcare 08/25/2024 Results Follow-Up [facility] - Internal [facility] - [place] [address] [place] [address] Abhay Plascencia MD 08/25/2024 Travel from Last 3 Months Immunizations Immunization Administration Dates Next Due Hepatitis B Vaccine 03/21/2005,02/18/2005 Influenza Vaccine 04/08/2016 Influenza Vaccine, MDCK,quad rivalent, pres free 05/26/2019 Influenza Vaccine, Quadrivalent, PF 11/0 10/2022,06/23/2022,06/13/2021,04/30,04/17/2018 Influenza Vaccine,unspecifie d Formulation 05/17/2021 Influenza, Injectable, Quadrivalent 05/20/2015 Influenza, Seasonal, Injecta ble, Undefined 04/19/2017 Influenza,Split Virus,Trivalent,Injectable,PF 06/20/2024 Pneumococcal Vaccine Adult - 23 Valent 4 Pneumococcal conjugate PCV20 , polysaccharide [id number] conjugate, adjuvant, PF 03/19/2022 TDAP Vaccine 11/14/2016 Family History Medical History Relation Name Comments Other-comment Brother 1 Hema DVT to leg No Known Problems Brother 2 Clayton Diabetes Father Heart Disease Father Stroke Father Heart Attack Mother Pacemaker Mother No Known Problems Sister Margot Relation Name Status Comments Brother 1 Hema Alive Brother 2 Clayton Alive Father Mother Sister Amrgot Alive Social History Tobacco Use Types Packs/Day Years Used Date Smoking Tobacco: Former Cigarettes 2 31.8 1 992 - 06/07/2023 Passive Smoke Exposure: Current Smokeless Tobacco: Never Tobacco Cessation:Counseling Given: No Comments:Quit for 5 years but started again Alcohol Use Standard Drinks/Week Comments Not Currently 0 (1 standard drink = 0.6 oz pure alcohol) Socially 2-3 drinks [place] [employer] [facility] Utilities Answer Date Recorded In the past 12 months has e MySQL, gas, oil, or water company threatened to shut off services in your home? No 10/24/2024 Social Connection and Isolation Panel [NHANES] A nswer Date Recorded In a typical week, how many times do you talk on the phone with family, friends, or neighbors? Three times a week 03/24/20 25 How often do you get togethe r with friends or relatives? Once a week 10/24/2024 How often do you attend chur ch or tenriism services? Never 10/24/2024 Do you belong to any clubs o r organizations such as spiritism groups, unions, fraternal or athletic groups, or school groups? No 10/24/2024 How often do you attend meet ings of the clubs or organizations you belong to? 1 to 4 times per year 10/24/2024 Are you , , di vorced, , never , or living with a partner? 10/24/2024 AUDIT-C Answer Date Recorded Q1: How often do you have a drink containing alc ohol? Monthly or less 10/24/2024 Q2: How many drinks containi ng alcohol do you have on a typical day when you are drinking? 1 or 2 10/24/2024 Q3: How often do you have si x or more drinks on one occasion? Never 10/24/2024 Overall Financial Resource Strain (CARDIA) Answe r Date Recorded How hard is it for you to pa y for the very basics like food, housing, medical care, and heating? Somewhat hard 10/24/2024 PHQ-2 Answer Date Recorded Total Score - Questions 1-9 0 08/04 [facility] - Occupational Stress Questionnaire Answer Date Recorded Do you feel stress - tense, restless, nervous, or anxious, or unable to sleep at night because your mind is troubled all the time - these days? To some extent 10/24/2024 Exercise Vital Sign Answer Date Recorde d On average, how many days pe r week do you engage in moderate to strenuous exercise (like a brisk walk)? 0 days 10/24/2024 On average, how many minutes do you engage in exercise at this level? 0 min 10/24/2024 Hunger Vital Sign Answer Date Recorded Within the past 12 months, y ou worried that your food would run out before you got the money to buy more. Sometimes true Within the past 12 months, t he food you bought just didn't last and you didn't have money to get more. Never true PRAPARE - Transportation Answer Date Re corded In the past 12 months, has l ack of transportation kept you from medical appointments or from getting medications? No 10/02 In the past 12 months, has l ack of transportation kept you from meetings, work, or from getting things needed for daily living? No 10/24/2024 Housing Stability Vital Sign Answer Jairon e [...] place to sleep or slept in a senior living (including now)? No 09/09/2023 Housing Stability Vital Sign Answer Jairon e Recorded In the last 12 months, was t here a time when you were not able to pay the mortgage or rent on time? No 10/24/2024 Number of Times Moved in the Last Year Not on fi le 10/24/2024 At any time in the past 12 m [facility], were you homeless or living in a senior living (including now)? No 10/24/2024 Education Answer Date Recorded What is the [...] Sign Reading Time Taken Comments Blood Pressure 112/64 10/24/2024 8:58 AM CDT Pulse 88 10/24/2024 8:58 AM CDT Temperature 36.2 C (97.2 F) 10/24/2024 8:58 AM CDT Respiratory Rate 12 03/17/2024 11:03 AM CDT Oxygen Saturation 98% 10/24/2024 8:58 AM CDT Inhaled Oxygen Concentration - - Weight 68.5 kg (151 lb) 10/24/2024 8:58 AM CDT Height 162.6 cm (5' 4 ) 10/24/2024 8:58 AM CDT Body Mass Index 25.92 10/24/2024 8:58 AM CDT Plan of Treatment Upcoming Encounters Date Type Department Care Team (Late st Contact Info) Description 01/25/2025 8:45 AM CDT Office Visit [facility] - [place] [address] [place] [phone] Abhay Plascencia MD [address] [place] [address] Health Maintenance Due Date Last Done Comments [...] Procedure Name Priority Date/Time Associated Diagnosis Comments CULTURE - MISCELLANEOUS 10/08/2024 12:00 AM CHECK GRADER CULTURE - MISCELLANEOUS 10/08/2024 12:00 AM CHECK GRADER CULTURE - MISCELLANEOUS 10/08/2024 12:00 AM CHECK GRADER POCT UA NON-AUTOMATED W/O MICRO Routine 08/25/2024 9:10 AM CHECK GRADER Urinary urgency COLOGUARD Routine 08/14/2022 10:40 AM CHECK GRADER Screening for colorectal cancer from Last 3 Months or Most Recently Relevant to Health Maintenance Results * CULTURE - MISCELLANEOUS (10/08/2024 12:00 AM CHECK GRADER) Only the most recent of3 resultswithin the time period is included. 10/08/2024 us Provider Scan MICROBIOLOGY - GENERAL ORDERABLE S Final Result SCAN * (ABNORMAL) POCT UA NON-AUTOMATED W/O MICRO (08/25/2024 9:10 AM CHECK GRADER) POC UA SPECIFIC GRAVITY 1.025 URINE PH [...] URINE CLARITY Slightly Hazy 08/25/2024 9:10 AM CHECK GRADER Abhay Plascencia MD POINT OF CARE TESTING (MANU AL) Final Result * COLOGUARD (08/14/2022 10:40 AM CHECK GRADER) Cologuard Negative Negative [facility] Comment: NEGATIVE TEST RESULT. A negative [...] Davis et al, N Engl J Med 2014;370(14):9451-0226) The normal value (reference range) for this assay is negative. COLOGUARD RE-SCREENING RECOMMENDATION: Periodic colorectal cancer screening is an important part of preventive healthcare for asymptomatic individuals at average risk for colorectal cancer. Following a negative Cologuard result, the [place] [employer] and U.S. Multi-Society Task Force screening guidelines recommend a Cologuard re-screening interval of 3 years. References: [place] [employer] Guideline for Colorectal Cancer Screening: https://www.cancer.org/cancer/qzsam-fymvsm-ziuhze/apitymdsg-owiirsxsl-kuqpxpx/ acs-recommendations.html.; Fidel ALEX, Jean Claude HOUSTON, Ricardo CuetoK, Colorectal Cancer Screening: Recommendations for Physicians and Patients from the U.S. Multi-Society Task Force on Colorectal Cancer Screening , Am J Gastroenterology 2017; 112:1316-4580. TEST DESCRIPTION: Composite algorithmic analysis of stool [...] Davis et al, N Engl J Med 2014;370(14):5764-2881.) Cologuard may produce a false negative or false positive result (no colorectal cancer or precancerous polyp present at colonoscopy follow up). A negative Cologuard test result does not guarantee the absence of CRC or advanced adenoma (pre-cancer). The current Cologuard screening interval is every 3 years. ([place] [employer] and U.S. Multi-Society Task Force). Cologuard performance data in a 10,000 patient pivotal study using colonoscopy as the reference method can be accessed at the following location: www.Glider/results. Additional description of the Cologuard test process, warnings and precautions can be found at www.Simple AdmitogZin.glrd.com. Stool 08/14/2022 10:4 0 AM CHECK GRADER 08/16/2022 9:40 AM CHECK GRADER Abhay Plascencia MD BODY FLUIDS & STOOLS ORDERA BLES Final Result [facility] [address] [place] [address], [facility] [address] [place] [address] from Last 3 Months or Most Recently [...] measures to stabilize the patient. Care Teams Garnishment Specialist Relationship Specialty Start Date End Date Abhay Plascencia MD [address] [place] [address] PCP - General Internal Medicine 06/26/15 Aguilar Novoa MD [address] [address] Consulting Physician General Surgery 11/11/21 Sanjay Ingram MD #[address] [address] Consulting Physician Colon and Rectal Surgery 04/16/22
[2024-11-18 18:55] VITALS: BP 107/73; PULSE 74; RESP 16; TEMP 36.6; O2SAT 99
--- NOTE | 2024-11-18 19:23 | ED_ITS ---
HPI - Extremity Injury (Lower) General Chief Complaint: Extremity Injury, Lower Stated Complaint: Toe Injury Time Seen by Provider: 11/18/24 19:00 Source: patient, RN notes reviewed and old records reviewed Mode of arrival: ambulatory Limitations: no limitations History of Present Illness HPI Narrative: 49 year old male presents to express care with complaints of pain to the 4th and 5th toes of his left foot with bruising and swelling noted. Patient reports that he was horsing around with his and he hit his toes on the corner the wall on Thursday 2 days ago. Patient is on blood thinner due to cardiac history of transplant and cardiac stent. Patient reports that he has been using ice to his left foot for comfort measures. Patient has strong left pedal pulse with no tingling or numbness voiced to left foot. Patient reports increased pain with ambulation and weeight bearing. MD complaint: foot injury (4th and 5th toe) Onset (ago): day(s) (2) Injury: Left: toes (4th and 5th toe pain) Type of Injury: blunt Place: home Severity scale (1-10): 9 Treatments prior to arrival: cold therapy Related Data Home Medications ?Medication ?Instructions ?Recorded ?Confirmed ?Last Taken ?Type aspirin 81 mg tablet,delayed 81 mg PO DAILY 01/02/23 04/10/24 Unknown History release citalopram 20 mg tablet 30 mg PO DAILY 01/02/23 04/10/24 Unknown History diltiazem HCl 120 mg 120 mg PO DAILY 01/02/23 04/10/24 Unknown History capsule,extended release 24 hr, controlled (DILT-XR) enalapril maleate 10 mg tablet 10 mg PO DAILY 01/02/23 04/10/24 Unknown History omeprazole 20 mg capsule,delayed 20 mg PO BID 01/02/23 04/10/24 Unknown History release rosuvastatin 20 mg tablet 20 mg PO HS 01/02/23 04/10/24 Unknown History sildenafil 50 mg tablet 50 mg PO PRN PRN Erectile 01/02/23 04/10/24 Unknown History Dysfunction sirolimus 0.5 mg tablet 0.5 mg PO EVERY OTHER DAY 01/02/23 04/10/24 Unknown History tacrolimus 0.5 mg capsule, 0.5 mg PO BID 01/02/23 04/10/24 Unknown History immediate-release ticagrelor 90 mg tablet (Brilinta) 90 mg PO BID 01/02/23 04/10/24 Unknown History albuterol sulfate 90 mcg/actuation See Rx Instructions .Route 05/29/23 04/10/24 Unknown History aerosol inhaler .COMPLEX PRN sob Allergies Allergy/AdvReac Type Severity Reaction Status Date / Time Penicillins Allergy Unknown Rash Verified 11/18/24 18:59 Review of Systems Review of Systems: CONSTITUTIONAL: Denies fever, chills, or sweats. EYES: Denies visual changes, redness, or discharge. ENT: Denies rhinorrhea, congestion, sore throat, or otalgia. CARDIOVASCULAR: Denies chest pain, palpitations, or edema. RESPIRATORY: Denies cough or dyspnea. GASTROINTESTINAL: Denies abdominal pain, nausea, vomiting, or diarrhea. GENITOURINARY: Denies dysuria or hematuria. SKIN: Denies rash or itching. MUSCULOSKELETAL: Denies back pain, positive for pain to the left 4th and 5th toe with swelling and bruising, or myalgia. NEUROLOGIC: Denies headache, numbness, or weakness. PSYCHIATRIC: Denies anxiety or depression. All systems reviewed & are unremarkable except as noted in HPI and below PMFSH Past Medical History Medical History Leukemia Asthma Irritable bowel Anxiety GERD (gastroesophageal reflux disease) Elevated cholesterol Hypertension Surgical History Surgical History Heart transplanted 2004 History of heart artery stent Social History Social History Smoking packs per day: 1 Smoking cigarettes per day: 20.0 Years smoked: 8 Smoking pack-years: 8.00 Smoking status: Current every day smoker Alcohol intake: current Alcohol use details: rare social Substance use type: does not use Living arrangements: with family Gender identity (if verbalized by the patient): Male Comments At time of signature, agree with nursing past medical, surgical, social and family history. There is no relevant family history pertinent to the presenting complaint Exam Narrative: GENERAL: Well-appearing, well-nourished, and in no acute distress. HEAD: Normocephalic, atraumatic. EYES: PERRLA and EOMI. ENT: Nares clear, no rhinorrhea or epistaxis. Mucous membranes moist. TM's normal with throat pink with no swelling or pain NECK: Supple. no lymphadenopathy CHEST: Clear to auscultation. No respiratory distress. denies any shortness of breath SAO2 99% on room air HEART: Regular rate and rhythm. No murmur heard. Normal peripheral pulses. ABDOMEN: Soft, nontender, nondistended, normal active bowel sounds. EXTREMITIES: Normal range of motion. No edema. Exception noted to left 4th and 5th toes with injury reported with swelling and bruising noted especially to 5th toe and to top of 4th toe. Pain increased with ambulation and any attempted movement of affected toes, pedal pulse strong to left foot, foot pink and warm SKIN: Warm, dry, no rash. NEURO: No focal deficits. Alert and oriented x3. Course Course Emergency Course: Patient is aware of diagnosis, understands and agrees to treatment plan.? Anticipatory guidance given.? Patient agrees to follow-up as directed and is aware of reasons to seek care at the emergency department. Portions of this record may have been created with voice recognition software Level of Care: Express Care Visit Vital Signs Vital signs: Vital Signs Temperature 36.6 C 11/18/24 18:55 Pulse Rate 74 11/18/24 18:55 Respiratory Rate 16 11/18/24 18:55 Blood Pressure 107/73 11/18/24 18:55 Pulse Oximetry 99 11/18/24 18:55 Oxygen Delivery Room Air 11/18/24 18:55 Temperature 36.6 C 11/18/24 18:55 Pulse Rate 74 11/18/24 18:55 Respiratory Rate 16 11/18/24 18:55 Blood Pressure 107/73 11/18/24 18:55 Pulse Oximetry 99 11/18/24 18:55 Oxygen Delivery Room Air 11/18/24 18:55 Reviewed MDM - Extremity Injury (Lower) Differential Diagnosis Differential diagnosis: Likely fracture of toe and other (foot fracture, pain to left 4th and 5th toes with swelling, injury to 4th and 5h toes left foot) Medical Records Attestation: I reviewed the patient's medical records. Imaging Data Attestation: I personally reviewed and interpreted this imaging study as follows: My impression: fracture of 5th toe left foot nondisplaced of distal meta physis of proximal phalanx of little toe Radiologist's impression: [facility] [address] [place] [address] XRay Report Signed Patient: Carlos Phillips : 1975 MR#: [id number] Age: 49 Acct:[id number] Loc: [facility] ADM Date: 11/18/24Attending Dr: Ordering Physician: Hilda Beard APRN Date of Service: 11/18/24 Procedure(s): XR foot LT min 3V Accession Number(s): [id number] cc: TEMO,SRIDHAR Scales M.D.; Hilda Beard APRN~ XR foot LT min 3V Ordering provider: Hilda Beard NP History: . Injury to 4th/5th left phalanx of left foot. Bruising/pain . Comparison: None. FINDINGS: BONES: Undisplaced fracture of the distal metaphysis of the proximal phalanx of the little toe. No other definite fractures seen. JOINT SPACES: Normal. No tarsal coalition. SOFT TISSUES: Normal. IMPRESSION: Fracture in the distal metaphysis of the proximal phalanx of the little toe. Reviewed, dictated and finalized at location A. Please be advised this is a medical document. It is intended for [id number] communication. It is written in medical language and may contain unfamiliar abbreviations or verbiage. Medical documents are intended to carry relevant information, facts as evident, and the clinical opinion of the practitioner at the time of the encounter. This report may have been done utilizing a voice recognition system. Attempts have been made to correct errors. However, there may be uncorrected grammatical, spelling, and recognition errors present. The file time of this note does not necessarily represent the time of service. Dictated By: Umer Sofia MD 11/18/241915 Signed By: <Electronically signed by Umer Soifa MD in OV> Critical Care Time Critical Care Time Critical Care Time: No Discharge Plan Discharge Clinical Impression: Fracture of proximal phalanx of toe of left foot Patient Disposition: Home Condition: Stable Instructions: Toe Fracture (ED) Additional Instructions: Julio César tape 3rd and 4th toes left foot and post op shoe Tylenol for pain may take Tylenol 500 mg 2 tabs up to 3 times daily for pain Follow-up with orthopedic surgeon or podiatry if any further pain or problems Follow-up with PCP if further problems or concerns Ice to the area 20-30 minutes 4-6 times a day Elevate above heart If your symptoms persist, change or worsen significantly before you can contact your personal physician then please, without delay, go to the emergency department for further evaluation. Follow-up with PCP in 7-10 days or sooner if needed Patient Language: Luxembourgish Prescriptions: No Action sildenafil 50 mg tablet 50 mg PO PRN PRN (Reason: Erectile Dysfunction) citalopram 20 mg tablet 30 mg PO DAILY diltiazem HCl [DILT-XR] 120 mg capsule,ext.rel 24h degradable 120 mg PO DAILY omeprazole 20 mg capsule,delayed release(DR/EC) 20 mg PO BID rosuvastatin 20 mg tablet 20 mg PO HS Brilinta 90 mg tablet 90 mg PO BID tacrolimus 0.5 mg capsule 0.5 mg PO BID sirolimus 0.5 mg tablet 0.5 mg PO EVERY OTHER DAY dicyclomine 10 mg capsule 10 mg PO BID PRN (Reason: abdominal pain) Qty: 14 0RF enalapril maleate 10 mg Tablet 10 mg PO DAILY aspirin [Aspir-81] 81 mg Tablet,Delayed Release (Dr/Ec) 81 mg PO DAILY famotidine [Pepcid] 20 mg tablet 20 mg PO DAILY Qty: 10 0RF albuterol sulfate 90 mcg/actuation HFA aerosol inhaler See Rx Instructions .ROUTE .COMPLEX PRN (Reason: sob) Rx Instructions: as prescribed sulfamethoxazole-trimethoprim [Bactrim DS] 800-160 mg tablet 1 tablet PO Q12H Qty: 20 0RF Follow-up/Referrals: Temo,Sridhar Scales MD [Primary Care Provider] - Time of Disposition: 19:37 Quality [place] Coma Scale Eyes: Open Verbal: Oriented and Alert Motor: Follows Commands Nelda Coma Total Score: 15
== END 2024-11-18 19:43 | disposition home or self-care (01) ==
PROVIDERS: Emergency Provider Registered Nurse; PCP Internal Medicine
DX: S92.512A Displaced fracture of proximal phalanx of left lesser toe(s), initial encounter for closed fracture (principal); W22.01XA Walked into wall, initial encounter; I10 Essential (primary) hypertension; E78.00 Pure hypercholesterolemia, unspecified; J45.909 Unspecified asthma, uncomplicated; K21.9 Gastro-esophageal reflux disease without esophagitis; C95.90 Leukemia, unspecified not having achieved remission; Z95.5 Presence of coronary angioplasty implant and graft; Z94.1 Heart transplant status; F17.210 Nicotine dependence, cigarettes, uncomplicated; Z79.01 Long term (current) use of anticoagulants
CPT/HCPCS: 73630; 99214; G0463

== ENCOUNTER 2024-11-23 12:08 | Emergency (ER) | payer MEDICARE, MEDICAID, SELFPAY ==
[2024-11-23 12:13] VITALS: BP 126/84; PULSE 107; RESP 18; TEMP 37.5; O2SAT 99
--- NOTE | 2024-11-23 12:13 | ED_ITS ---
HPI - URI/Sore Throat General Chief Complaint: Upper Respiratory Infection Stated Complaint: Sore Throat/Fever History of Present Illness HPI Narrative: 49 y/o male presented for c/o sore throat and fever. Onset this morning. Temp 100.3 today, took Tylenol. Says last night he had the chills. denies cough, nasal congestion, sob, n/v/d or lethargy. Hx heart transplant. Related Data Home Medications ?Medication ?Instructions ?Recorded ?Confirmed ?Last Taken ?Type aspirin 81 mg tablet,delayed 81 mg PO DAILY 01/02/23 04/10/24 Unknown History release citalopram 20 mg tablet 30 mg PO DAILY 01/02/23 04/10/24 Unknown History diltiazem HCl 120 mg 120 mg PO DAILY 01/02/23 04/10/24 Unknown History capsule,extended release 24 hr, controlled (DILT-XR) enalapril maleate 10 mg tablet 10 mg PO DAILY 01/02/23 04/10/24 Unknown History omeprazole 20 mg capsule,delayed 20 mg PO BID 01/02/23 04/10/24 Unknown History release rosuvastatin 20 mg tablet 20 mg PO HS 01/02/23 04/10/24 Unknown History sildenafil 50 mg tablet 50 mg PO PRN PRN Erectile 01/02/23 04/10/24 Unknown History Dysfunction sirolimus 0.5 mg tablet 0.5 mg PO EVERY OTHER DAY 01/02/23 04/10/24 Unknown History tacrolimus 0.5 mg capsule, 0.5 mg PO BID 01/02/23 04/10/24 Unknown History immediate-release ticagrelor 90 mg tablet (Brilinta) 90 mg PO BID 01/02/23 04/10/24 Unknown History albuterol sulfate 90 mcg/actuation See Rx Instructions .Route 05/29/23 04/10/24 Unknown History aerosol inhaler .COMPLEX PRN sob Allergies Allergy/AdvReac Type Severity Reaction Status Date / Time Penicillins Allergy Unknown Rash Verified 11/23/24 12:18 Review of Systems Review of Systems: per HPI [facility] Past Medical History Medical History Leukemia Asthma Irritable bowel Anxiety GERD (gastroesophageal reflux disease) Elevated cholesterol Hypertension Surgical History Surgical History Heart transplanted 2005 History of heart artery stent Social History Social History Smoking packs per day: 1 Smoking cigarettes per day: 20.0 Years smoked: 8 Smoking pack-years: 8.00 Smoking status: Current every day smoker Alcohol intake: current Alcohol use details: rare social Substance use type: does not use Living arrangements: with family Gender identity (if verbalized by the patient): Male Exam Narrative: GENERAL: well-appearing, no acute distress. EYES: conjunctivae clear ENT: Mucous membranes moist. TM pearly coronel with normal light reflex bilatera lly; no tragal tenderness. Oropharynx not erythematous without lesions. Tonsils enlarged 2+ and without exudate. No drooling, no hoarseness, no trismus, uvula midline. No tripod positioning, hot potato voice, or soft palate swelling. NECK: Supple. No lymphadenopathy CHEST: Clear to auscultation, breath sounds equal. No respiratory distress, speaks in full sentences. HEART: Regular rate and rhythm. No murmur heard. SKIN: Warm, dry, no rash. NEURO: Alert and oriented x3. Course Course Emergency Course: Patient is aware of diagnosis, understands and agrees to treatment plan. Anticipatory guidance given. Patient agrees to follow-up as directed and is aware of reasons to seek care at the emergency department. Portions of this record may have been created with voice recognition software Level of Care: Express Care Visit Vital Signs Vital signs: Vital Signs Temperature 99.5 F 11/23/24 12:13 Pulse Rate 107 H 11/23/24 12:13 Respiratory Rate 18 11/23/24 12:13 Blood Pressure 126/84 11/23/24 12:13 Pulse Oximetry 99 11/23/24 12:13 Oxygen Delivery Room Air 11/23/24 12:13 Temperature 99.5 F 11/23/24 12:13 Pulse Rate 107 H 11/23/24 12:13 Respiratory Rate 18 11/23/24 12:13 Blood Pressure 126/84 11/23/24 12:13 Pulse Oximetry 99 11/23/24 12:13 Oxygen Delivery Room Air 11/23/24 12:13 MDM - URI/Sore Throat MDM Narrative Medical decision making narrative: neg strep result reviewed with pt. Advise supportive treatments. Patient is appropriate for outpatient treatment and follow-up. Differential Diagnosis Differential diagnosis: Likely upper respiratory infection, viral infection and pharyngitis Discharge Plan Discharge Clinical Impression: Pharyngitis Patient Disposition: Home Condition: Stable Instructions: Antibiotic Form, Strep Throat (ED) Additional Instructions: Rapid strep swab was negative today You will be notified in a few days if the culture comes back positive for strep, and appropriate antibiotics will be called in at that time. if symptoms are due to a viral illness, it is not treated with antibiotics. Viral symptoms can be present for up to 10-14 days. Avoid crowds/work etc until you are fever free for 24 hours without the use of fever reducing medicine Recommendations: Tylenol every 8 hours as needed for pain/fever Soft foods, cool liquids, warm tea. Gargle with warm saltwater twice a day. Chloraseptic spray and throat lozenges. Rest and stay hydrated. --Follow up with your PCP --Go to the ER immediately if you cannot swallow your saliva, trouble breathing/wheezing, throat swelling, pain is persistent and severe Patient Language: Tuvaluan Prescriptions: No Action sildenafil 50 mg tablet 50 mg PO PRN PRN (Reason: Erectile Dysfunction) citalopram 20 mg tablet 30 mg PO DAILY diltiazem HCl [DILT-XR] 120 mg capsule,ext.rel 24h degradable 120 mg PO DAILY omeprazole 20 mg capsule,delayed release(DR/EC) 20 mg PO BID rosuvastatin 20 mg tablet 20 mg PO HS Brilinta 90 mg tablet 90 mg PO BID tacrolimus 0.5 mg capsule 0.5 mg PO BID sirolimus 0.5 mg tablet 0.5 mg PO EVERY OTHER DAY enalapril maleate 10 mg Tablet 10 mg PO DAILY aspirin [Aspir-81] 81 mg Tablet,Delayed Release (Dr/Ec) 81 mg PO DAILY albuterol sulfate 90 mcg/actuation HFA aerosol inhaler See Rx Instructions .ROUTE .COMPLEX PRN (Reason: sob) Rx Instructions: as prescribed Follow-up/Referrals: Temo,Abhay Scales MD [Primary Care Provider] - Stand Alone Forms: Work/School Release IP Time of Disposition: 12:31
[2024-11-23 12:29] LABS: EDSTREPNEGPOS1 Negative (Negative)
--- OUTSIDE RECORDS SUMMARY | 2024-11-23 13:48 | XMS_ITS | Clinical Summary ---
Author Organization [facility] Address [address] [place] [address] Care Team Providers Care Certified Histologic Technician Name Role Phone Abhay Plascencia MD Primary Care Provider [phone] Bhavesh Chin RN Unavailable [phone] Analilia Harris MD Unavailable [phone] Allergies Active Allergy Reactions Criticality Noted Date [...] medication again. 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 He needs to continue with Brilinta and aspirin Abnormal stress echo 10/01/2020 Overview (10/01/2020): Added automatically from request for surgery [id number] H/O heart transplant ([facility]) 10/01/2020 Overview (10/01/2020): Added automatically from request for surgery [id number] Assessment & Plan (04/27/2021 6:28 AM CDT): [...] Encounters Date Type Department Care Team Description 11/23/2024 Telephone [facility] Transplant Heart [address] [id number] [place] [address] Hetal Lo from Last 3 Months Immunizations Immunization Administration [...] on file Legal Sex Male 1:54 AM 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 Gender Identity Not on file Sexual Orientation Not on file Obstetrics History Last Filed Vital Signs Vital Sign Reading Time Taken Comments Blood Pressure 130/68 08/16/2024 11:45 AM 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 Pulse 75 08/16/2024 11:45 AM 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 Temperature 36.6 C (97.9 F) 08/16/2024 7:07 AM 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 Respiratory Rate 22 08/16/2024 11:45 AM 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 Oxygen Saturation 92% 08/16/2024 11:45 AM 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 Inhaled Oxygen Concentration - - Weight 69.4 kg (153 lb) 08/16/2024 7:07 AM 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 Height 162.6 cm (5' 4 ) 08/16/2024 7:07 AM 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 Body Mass Index 26.26 08/16/2024 7:07 AM 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 Plan of Treatment Health Maintenance Due Date [...] history exists Medical Devices Implanted Type Area Market Researcher Device Identifier Shelf Expiration Date Model / Serial / Lot Medtronic [employer] X [id number] Resolute Swapnil 2.25mm 2.1-2.7fr 26mm 140cm Rapid Exchange - [id number] - [id number] Implanted:Qty: 1 on 10/12/2020 by Missael Fuentes MD at [facility] Stent Medtronic Inc 04/11/2022 [id number] / [id number] / [id number] Medtronic Inc [id number] System 8mm 140cm 2mm Coronary Stent Resolute Swapnil Extra Small Vessel Biolinx Zotarolimus Cocr Rapid Exchange Radiopaque 1 Access Port Sterile Accepts .014in Guidewire 5fr Guide Catheter - [id number] - [id number] Implanted:Qty: 1 on 10/12/2020 by Missael Fuentes MD at [facility] Stent Medtronic Inc 05/28/2021 [id number] / [id number] / [id number] [employer]ron[employer] [id number] Stent Coronary De Rx Cocr Ors Msn 2.5x26mm - [id number] - [id number] Implanted:Qty: 1 on 10/25/2021 by Missael Fuentes MD at [facility] Stent [employer]otronik Inc 05/29/2023 [id number] / [id number] / [id number] [employer] [facility] [id number] Angio-Seal Evolution 6fr .035in Guidewire Bypass Tube Suture - [id number] - [id number] Implanted:Qty: 1 on 10/12/2020 by Missael Fuentes MD at [facility] [employer] Maryellen 07/02/2021 [id number] / [id number] / [id number] Medtronic Card Vasc Surgery 3.0 X 12mm Connelly Hawthorn Rx Coronary Stent [id number] - [id number] - [id number] Implanted:Qty: 1 on 08/16/2024 by Missael Fuentes MD at [facility] Right: Coronary Artery Medtronic Card Vasc Surgery 02/10/2027 [id number] / [id number] / Medtronic Card Vasc Surgery 3.0 X 12mm Swapnil Hawthorn Rx Coronary Stent [id number] - [id number] - [id number] Implanted:Qty: 1 on 08/16/2024 by Missael Fuentes MD at [facility] Medtronic Card Vasc Surgery 02/10/2027 [id number] / [id number] / [id number] Insurance [facility] Advance Directives For more information, please contact: [phone] * Full Code (Latest Code Status on [...] 11:43 AM 10/25/2021 8:12 PM Care Teams Certified Histologic Technician Relationship Specialty Start Date End Date Abhay Plascencia MD [address] [place] [address] PCP - General 05/28/17 Bhavesh Chin, RN [address] [address] Band Saw Filer 07/26/18 Analilia Harris MD [address] [address] Consulting Physician Gastroenterology 04/28/21
--- OUTSIDE RECORDS SUMMARY | 2024-11-23 13:48 | XMS_ITS | Encounter Summary ---
Author Organization [facility] Address [address] [place] [address] Care Team Providers Care Supervisor Prop Making Name Role Phone Abhay Plascencia MD Primary Care Provider [phone] Bhavesh Chin RN Unavailable Analilia Harirs MD Unavailable [phone] Encounter Details Date Type Department Care Team (Late st Contact Info) Description 11/23/2024 Telephone 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 And they took a swab but he wont get results for two days he said. He feels awful and needs advice. He said they did not do anything or give him any antibiotic. Patient needs a return call from the nurse coordinator.Please call patient at [phone]. documented in this encounter Plan of Treatment Not on file documented as of this encounter Visit Diagnoses Not on filedocumented in this encounter Care Teams Supervisor Prop Making Relationship Specialty Start Date End Date Abhay Plascencia MD [address] [place] [address] PCP - General 05/28/17 Bhavesh Chin, RN [address] [address] Devulcanizer Head 07/26/18 Analilia Harris MD [address] [address] Consulting Physician Gastroenterology 04/28/21 documented as of this encounter
--- OUTSIDE RECORDS SUMMARY | 2024-11-23 13:48 | XMS_ITS | Encounter Summary ---
Author Organization [facility] Address [address] [place] [address] Phone Care Team Providers Care Inclusion Paraeducator Name Role Phone Abhay Plascencia MD Primary Care Provider Aguilar Novoa MD Unavailable Sanjay Ingram MD Unavailable Reason for Visit * Reason Comments Medication Refill Encounter Details Date Type Department Care Team (Late st Contact Info) Description 10/22/2020 [facility]ill [facility] - [facility] - [place] [address] [place] [address] Abhay Plascencia MD [address] [facility] [place] [address] Medication Refill Social History Tobacco [...] COVID-19? No / Unsure 09/22/2020 11:09 AM MATTRESS STRIPPER documented as of this encounter Miscellaneous Notes * Telephone Encounter - Jennie Donald RN - 10/22/2020 7:53 AM CDT Please review and sign. documented in this encounter Plan of Treatment Upcoming Encounters Date Type Department Care Team (Late st Contact Info) Description 01/25/2025 8:45 AM CDT Office Visit [facility] - Internal Medicine - [place] [address] [place] [id number] Abhay Plascencia MD [address] [place] [address] documented as of this encounter Visit Diagnoses Not on filedocumented in this encounter Additional Health Concerns Infection Onset Date Last Indicated Resolved Time COVID - 19 09/17/2021 09/17/2021 10/07/2021 12:1 6 AM MATTRESS STRIPPER COVID - 19 12/09/2021 12/09/2021 12/29/2021 12:1 6 AM CDT COVID - 19 04/03/2022 04/03/2022 04/13/2022 12:1 6 AM CDT Assessment Noted Time PHQ-9 Depression Total Score: 0 04/30/20 2:00 PM CDT documented as of this encounter Care Teams Inclusion Paraeducator Relationship Specialty Start Date End Date Abhay Plascencia MD [address] [place] [address] PCP - General Internal Medicine 06/26/15 Aguliar Novoa MD #[address] [address] Consulting Physician General Surgery 11/11/21 Sanjay Ingram MD #[address] [address] Consulting Physician Colon and Rectal Surgery 04/16/22 documented as of this encounter
--- OUTSIDE RECORDS SUMMARY | 2024-11-23 13:48 | XMS_ITS ---
Author Organization [facility] Address [address] [facility] [place] [address] Care Team Providers Care Social Media Project Manager Name Role Phone Abhay Plascencia MD Primary Care Provider [phone]- [phone] Bhavesh Chin RN Unavailable [phone] Analilia Harris MD Unavailable [phone] Transplant Episode Heart Recipient [facility] ([place], [place]) - [facility] Organ Received: Heart Transplanted on 05/11/2005 Marked as Active Follow-up on 05/11/2005 Heart CoordinatorBhavesh Chin RN Fax: N/A Email: N/A [place] Organ Diagnosis Organ Primary Contributory Heart Dilated [...] Role Phone Fax Email Bhavesh Chin RN Auto Mechanic [phone] N/A N/A Phani Xiong Paraffin Machine Operator [phone] N/A N/A Bhavesh Chin, depalletizer operatorLead Assembler [phone] N/A N/A Hetal Lo Primary Pot Fluxer N/A N/A N/A Events Post-Transplant Pre-Transplant Admitted: 05/11/2005 Referred: 03/27/2003 Transplanted: 05/11/2005 Evaluation began: 5 Discharged: 05/21/2005 Center waitlisted: 5
--- OUTSIDE RECORDS SUMMARY | 2024-11-23 13:48 | XMS_ITS | Encounter Summary ---
Author Organization [facility] Address [address] [place] [address] Phone Care Team Providers Care Medical Surgical Tech Name Role Phone Abhay Plascencia MD Primary Care Provider Aguilar Novoa MD Unavailable [phone] Sanjay Ingram MD Unavailable Reason for Visit * Reason Comments Medication Refill Encounter Details Date Type Department Care Team (Late st Contact Info) Description 10/30/2022 Refill [facility] - [facility] - [place] [address] [place] [address] Abhay Plascencia MD [address] [facility] [place] [address] Medication Refill Social History Tobacco [...] Description 01/25/2025 8:45 AM CDT Office Visit [facility] - Internal Medicine [facility] [address] [place] [address] Abhay Plascencia MD [address] [facility] [place] [address] documented as of this encounter Visit Diagnoses Not on filedocumented in this encounter Additional Health Concerns Assessment Noted Time PHQ-9 Depression Total Score: 6 03/19/20 22 1:32 PM CDT documented as of this encounter Care Teams Medical Surgical Tech Relationship Specialty Start Date End Date Abhay Plascencia MD [address] [place] [address] PCP - General Internal Medicine 06/26/15 Aguilar Novoa MD #[address] [address] Consulting Physician General Surgery 11/11/21 Sanjay Ingram MD #[address] [address] Consulting Physician Colon and Rectal Surgery 04/16/22 documented as of this encounter
--- OUTSIDE RECORDS SUMMARY | 2024-11-23 13:48 | XMS_ITS | Encounter Summary ---
Author Organization [facility] Address [address] [place] [address] Phone Care Team Providers Care Health Clinician Name Role Phone Abhay Plascencia MD Primary Care Provider Aguilar Novoa MD Unavailable [phone] Sanjay Ingram MD Unavailable Reason for Visit * Reason Comments Medication Refill Encounter Details Date Type Department Care Team (Late st Contact Info) Description 01/04/2024 Refill [facility] - Internal Medicine - [place] [address] [place] [address] Abhay Plascencia MD [address] [facility] [place] [address] Medication Refill Social History Tobacco Use Types Packs/Day Years Used Date Smoking Tobacco: Former Cigarettes 2 31.8 1 992 - 06/07/2023 Passive Smoke Exposure: Current Smokeless Tobacco: Never Comments:Quit for 5 years bu t started again Alcohol Use Standard Drinks/Week Comments Not Currently 0 (1 standard drink = 0.6 oz pure alcohol) Socially 2-3 drinks [place] Hard Lemonades [facility] Utilities Answer Date Recorded In the past 12 months has [employer] electric, gas, oil, or water company threatened [...] often do you attend chur ch or rastafari services? Never 09/09/2023 Do you belong to any clubs o r organizations such as confucianism groups, unions, fraternal or athletic groups, or [...] Total Score - Questions 1-9 0 12/01 [facility] - Occupational Stress Questionnaire Answer Date Recorded [...] a senior living (including now)? No 09/09/2023 Education Answer Date [...] 09/09/23 Office Visit Abhay Plascencia MD [facility] [place] Showing recent visits within past 182 days and meeting all other requirements Future Appointments Date Type Provider Dept 03/17/24 Appointment Abhay Plascencai MD [facility] [place] Showing future appointments within next 90 days [...] Office Visit Abhay Plascencia MD [facility] [place] 09/09/23 Office Visit Abhay Plascencia MD [facility] [place] 06/08/23 Office Visit Abhay Plascencia MD [facility] [place] 02/11/23 Office Visit Yenni Jiménez PAC [facility] [place] Showing recent visits within past 365 days and meeting all other requirements Future Appointments Date Type Provider Dept 03/17/24 Appointment Abhay Plascencia MD [facility] [place] Showing future appointments within next 90 days and meeting all other requirements documented in this encounter Plan of Treatment Upcoming Encounters Date Type Department Care Team (Late st Contact Info) Description 01/25/2025 8:45 AM CDT Office Visit [facility] Group - Internal Medicine - [place] [address] [place] [phone] Abhay Plascencia MD [address] [place] [address] documented as of this encounter Visit Diagnoses Not on filedocumented in this encounter Additional Health Concerns Assessment Noted Time PHQ-9 Depression Total Score: 0 12/16/19 11:10 AM CDT documented as of this encounter Care Teams Health Clinician Relationship Specialty Start Date End Date Abhay Plascencia MD [address] [place] [address] PCP - General Internal Medicine 06/26/15 Aguilar Novoa MD #[address] [address] Consulting Physician General Surgery 11/11/21 Sanjay Ingram MD #[address] [address] Consulting Physician Colon and Rectal Surgery 04/16/22 documented as of this encounter
--- OUTSIDE RECORDS SUMMARY | 2024-11-23 13:48 | XMS_ITS | Encounter Summary ---
Author Organization [facility] Address [address] [place] [address] Phone Care Team Providers Care Curriculum Consultant Name Role Phone Abhay Plascencia MD Primary Care Provider Aguilar Novoa MD Unavailable Sanjay Ingram MD Unavailable Encounter Details Date Type Department Care Team (Late st Contact Info) Description 01/11/2021 Transcribe Orders [facility] Admitting 1 [place] [address] Doron Valadez MD [address] [address] History of heart transplant (HCC) (Primary Dx) [...] Description 01/25/2025 8:45 AM CDT Office Visit [facility] Group - Internal Medicine [facility] [address] [place] [address] Abhay Plascencia MD [address] [place] [address] documented as of this encounter Results * (ABNORMAL) BASIC METABOLIC PANEL W/ CALCIUM TOTAL (01/22/2021 9:46 AM CDT) SODIUM 136 136 - 144 mmol/L 01/22/2021 10:28 AM CDT [facility] POTASSIUM 4.2 3.5 - 5.1 mmol/L 01/22/2021 10:28 AM CDT [facility] CHLORIDE 103 100 - 110 mmol/L 01/22/2021 10:28 AM CDT [facility] CO2, VENOUS 26 22 - 32 mmol/L 01/22/2021 10:28 AM CDT [facility] ANION GAP 11.2 8.0 - 20.0 mmol/L 01/22/2021 10:28 AM CDT [facility] GLUCOSE 105(H) 70 - 99 mg/dL 01/22/2021 10:28 AM CDT [facility] BUN 7 6 - 20 mg/dL 01/22/2021 10:28 AM CDT [facility] CREATININE, BLOOD 0.85 0.80 - 1.30 mg/dL 01/22/2021 10:28 AM CDT [facility] BUN/CREATININE RATIO 8(L) 12 - 20 ratio 01/22/2021 10:28 AM CDT [facility] CALCIUM 9.4 8.9 - 10.3 mg/dL 01/22/2021 10:28 AM CDT [facility] GFR, EST. NONAFRICAN >60 >=60 01/22/2021 10:28 AM CDT [facility] GFR, EST. >60 >=60 01/22/2021 10:28 AM CDT [facility] Comment: Creatinine Clearance is the preferred criteria for selecting drug dose adjustments in renally impaired patients. The GFR is provided as additional pertinent clinical information. GFR is reported in mL/min/1.73 sq m. IS THE PATIENT REQUIRED TO BE FASTING? No 01/22/2021 10:28 AM CDT [facility] Blood Venipuncture / Unknown 01/22/2021 9:46 AM CDT 01/22/2021 10:09 AM CDT Doron Valadez MD CHEMISTRY ORDERABLES Final R esult [facility] [address] [place] [address] documented in this encounter Visit Diagnoses Diagnosis History of heart transplant (HCC)- Primary Heart replaced by transplant documented in this encounter Additional Health Concerns Infection Onset Date Last Indicated Resolved Time COVID - 19 09/17/2021 09/17/2021 10/07/2021 12:1 6 AM ADJUNCT INSTRUCTOR COVID - 19 12/09/2021 12/09/2021 12/29/2021 12:1 6 AM CDT COVID - 19 04/03/2022 04/03/2022 04/13/2022 12:1 6 AM CDT Assessment Noted Time PHQ-9 Depression Total Score: 0 04/30/20 20 2:00 PM CDT documented as of this encounter Care Teams Curriculum Consultant Relationship Specialty Start Date End Date Abhay Plascencia MD [address] [place] [id number] PCP - General Internal Medicine 06/26/15 Aguilar Novoa MD [address] [address] Consulting Physician General Surgery 11/11/21 Sanjay Ingram MD #[address] [address] Consulting Physician Colon and Rectal Surgery 04/16/22 documented as of this encounter
--- OUTSIDE RECORDS SUMMARY | 2024-11-23 13:48 | XMS_ITS | Encounter Summary ---
Author Organization [facility] Address [address] [place] [address] Phone Care Team Providers Care Wheat Buyer Name Role Phone Abhay Plascencia MD Primary Care Provider Aguilar Novoa MD Unavailable [phone] Sanjay Ingram MD Unavailable Encounter Details Date Type Department Care Team (Latest Contact Info) Description 12/18/2021 [facility] Ad[facility] 1 [place] [address] Valentino Pickens MD [address] [address] Heart replaced by transplant (HCC) (Primary Dx); [...] Internal Medicine [place] [address] [place] [id number] Abhay Plascencia MD [address] [place] [address] Scheduled Orders Name Type Priority Associated Diagnoses [...] Total Score: 0 06/13/20 21 11:00 AM RACK LOADER documented as of this encounter Care Teams Wheat Buyer Relationship Specialty Start Date End Date Abhay Plascencia MD [address] [place] [address] PCP - General Internal Medicine 06/26/15 Aguilar Novoa MD #[address] [address] Consulting Physician General Surgery 11/11/21 Sanjay Ingram MD #[address] [address] Consulting Physician Colon and Rectal Surgery 04/16/22 documented as of this encounter
--- OUTSIDE RECORDS SUMMARY | 2024-11-23 13:48 | XMS_ITS | Referral Summary ---
Author Organization [facility] Address [address] [place] [address] Care Team Providers Care Twisting Operator Name Role Phone Abhay Plascencia MD Primary Care Provider [phone] Bhavesh Chin RN Unavailable [phone] Analilia Harris MD Unavailable [phone] Encounters Date Type Department Care Team Description 11/23/2024 Telephone [facility] Transplant Heart [address] [facility] [address] [phone] [place] [address] Hetal Lo from Last 3 Months Allergies Active Allergy [...] medication again. 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 Gender Identity Not on file Sexual Orientation Not on file Last Filed Vital Signs Vital Sign Reading Time Taken Comments Blood Pressure 130/68 08/16/2024 11:45 AM SHOTGUN SHELL ASSEMBLY MACHINE ADJUSTER Pulse 75 08/16/2024 11:45 AM SHOTGUN SHELL ASSEMBLY MACHINE ADJUSTER Temperature 36.6 C (97.9 F) 08/16/2024 7:07 AM SHOTGUN SHELL ASSEMBLY MACHINE ADJUSTER Respiratory Rate 22 08/16/2024 11:45 AM SHOTGUN SHELL ASSEMBLY MACHINE ADJUSTER Oxygen Saturation 92% 08/16/2024 11:45 AM SHOTGUN SHELL ASSEMBLY MACHINE ADJUSTER Inhaled Oxygen Concentration - - Weight 69.4 kg (153 lb) 08/16/2024 7:07 AM SHOTGUN SHELL ASSEMBLY MACHINE ADJUSTER Height 162.6 cm (5' 4 ) 08/16/2024 7:07 AM SHOTGUN SHELL ASSEMBLY MACHINE ADJUSTER Body Mass Index 26.26 08/16/2024 7:07 AM SHOTGUN SHELL ASSEMBLY MACHINE ADJUSTER Plan of Treatment Not on file Medical Devices Implanted Type Area Artificial Leather Calender Operator Device Identifier Shelf Expiration Date Model / Serial / Lot Medtronic U[employer] X [id number] Resolute Gaston 2.25mm 2.1-2.7fr 26mm 140cm Rapid Exchange - [id number] - [id number] Implanted:Qty: 1 on 10/12/2020 by Missael Fuentes MD at [facility] Stent Medtronic Inc 04/11/2022 [id number] / [id number] / [id number] Medtronic Inc [id number] System 8mm 140cm 2mm Coronary Stent Resolute Gaston Extra Small Vessel Biolinx Zotarolimus Cocr Rapid Exchange Radiopaque 1 Access Port Sterile Accepts .014in Guidewire 5fr Guide Catheter - [id number] - [id number] Implanted:Qty: 1 on 10/12/2020 by Missael Fuentes MD at [facility] Stent Medtronic Inc 05/28/2021 [id number] / [id number] / [id number] Biotronik Inc [id number] Stent Coronary De Rx Cocr Ors Msn 2.5x26mm - [id number] - [id number] Implanted:Qty: 1 on 10/25/2021 by Missael Fuentes MD at [facility] Stent Biotronik Inc 05/29/2023 [id number] / [id number] / [id number] [employer] [facility] [id number] Angio-Seal Evolution 6fr .035in Guidewire Bypass Tube Suture - [id number] - [id number] Implanted:Qty: 1 on 10/12/2020 by Missael Fuentes MD at [facility] Zeligsoft 07/02/2021 [id number] / [id number] / [id number] Medtronic Card Vasc Surgery 3.0 X 12mm Swapnil Mahnomen Rx Coronary Stent [id number] - [id number] - [id number] Implanted:Qty: 1 on 08/16/2024 by Missael Fuentes MD at [facility] Right: Coronary Artery Medtronic Card Vasc Surgery 02/10/2027 [id number] / [id number] / Medtronic Card Vasc Surgery 3.0 X 12mm Swapnil Mahnomen Rx Coronary Stent [id number] - [id number] - [id number] Implanted:Qty: 1 on 08/16/2024 by Missael Fuentes MD at [facility] Medtronic Card Vasc Surgery 02/10/2027 [id number] / [id number] / [id number] Insurance [facility] Advance Directives For more information, please contact: [phone] * Full Code (Latest Code Status on [...] 11:43 AM 10/25/2021 8:12 PM Care Teams Twisting Operator Relationship Specialty Start Date End Date Abhay Plascencia MD [address] [place] [address] PCP - General 05/28/17 Bhavesh Chin, RN [address] [address] Franchise Development Manager 07/26/18 Analilia Harris MD [address] [address] Consulting Physician Gastroenterology 04/28/21
--- OUTSIDE RECORDS SUMMARY | 2024-11-23 13:48 | XMS_ITS | Encounter Summary ---
Author Organization [facility] Address [address] [place] [address] Phone Care Team Providers Care Night Nurse Name Role Phone Abhay Plascencia MD Primary Care Provider Aguilar Novoa MD Unavailable [phone] Sanjay Ingram MD Unavailable Encounter Details Date Type Department Care Team (Latest Contact Info) Description 09/10/2023 Transcribe Orders [facility] 1 [place] [address] Valentino Pickens MD [address] [address] Heart replaced by transplant (HCC) (Primary Dx) Social History Tobacco Use Types Packs/Day Years Used Date Smoking Tobacco: Former Cigarettes 2 31.8 1 992 - 06/07/2023 Passive Smoke Exposure: Current Smokeless Tobacco: Never Comments:Quit for 5 years bu t started again Alcohol Use Standard Drinks/Week Comments Not Currently 0 (1 standard drink = 0.6 oz pure alcohol) Socially 2-3 drinks [place] Hard Lemonades [facility] Utilities Answer Date Recorded In [...] often do you attend chur ch or confucianism services? Never 09/09/2023 Do you belong to any clubs o r organizations such as baptist groups, unions, fraternal or athletic groups, or [...] Total Score - Questions 1-9 0 02/2024 [facility] - [...] place to sleep or slept in a [place] health care facility (including now)? No 09/09/2023 Education Answer Date [...] Medicine - [place] [address] [place] [address] Abhay Plascencia MD [address] [place] [address] documented as of this encounter Results * TACROLIMUS (10/02/2023 12:08 PM INSPECTOR RETURNED MATERIALS) TACROLIMUS/FK50 6 (Prograf) 5.7 ng/mL [facility] ARCH [id number] 10/03/2023 8:12 AM INSPECTOR RETURNED MATERIALS [facility] Blood BLOOD SPECIMEN / Unknown Venipuncture / Unknown 10/02/2023 12:08 PM INSPECTOR RETURNED MATERIALS 10/02/2023 1:06 PM INSPECTOR RETURNED MATERIALS Narrative [facility] - 10/03/2023 8:12 AM INSPECTOR RETURNED MATERIALS A 12-hour tacrolimus trough level goal is patient specific and transplant specific. Trough level goals generally range from 5-15 ng/mL. If there is a question about the tacrolimus therapy or level goal, the transplant team managing the patient's tacrolimus should be contacted. us Valentino Pickens MD CHEMISTRY ORDERABLES Fin al Result Performing Organization Address City/[facility]/ZIP Co de Phone Number [facility] [address] [place] [address], [place] * RAPAMYCIN (SIROLIMUS) LEVEL (10/02/2023 12:08 PM INSPECTOR RETURNED MATERIALS) RAPAMYCIN, BLOOD 4.5 4.5 - 14.0 ng/mL [facility] ARCH [id number] 10/03/2023 12:47 PM INSPECTOR RETURNED MATERIALS [facility] Blood BLOOD SPECIMEN / Unknown Venipuncture / Unknown 10/02/2023 12:08 PM INSPECTOR RETURNED MATERIALS 10/02/2023 1:06 PM INSPECTOR RETURNED MATERIALS Narrative [facility] - 10/03/2023 12:47 PM INSPECTOR RETURNED MATERIALS Performed by [facility] on the [employer] Assembler us Valentino Pickens MD CHEMISTRY ORDERABLES Fin al Result Performing Organization Address [facility] Co de Phone Number [facility] [address] [place] [address], [place] documented in this encounter Visit Diagnoses Diagnosis Heart replaced by transplant (HCC)- Primary Heart replaced by transplant documented in this encounter Additional Health Concerns Assessment Noted Time PHQ-9 Depression Total Score: 0 09/09/19 24 10:39 AM INSPECTOR RETURNED MATERIALS documented as of this encounter Care Teams Night Nurse Relationship Specialty Start Date End Date Abhay Plascencia MD [address] [place] [address] PCP - General Internal Medicine 06/26/15 Aguilar Novoa MD #[address] [phone] Consulting Physician General Surgery 11/11/21 Sanjay Ingram MD [address] [place] [address] Consulting Physician Colon and Rectal Surgery 04/16/22 documented as of this encounter
--- OUTSIDE RECORDS SUMMARY | 2024-11-23 13:48 | XMS_ITS | Encounter Summary ---
Author Organization [facility] Address [address] [place] [address] Phone Care Team Providers Care Comp Field Case Manager Name Role Phone Abhay Plascencia MD Primary Care Provider [phone] Aguilar Novoa MD Unavailable [phone] Sanjay Ingram MD Unavailable Reason for Visit * Reason Comments Medication Refill Encounter Details Date Type Department Care Team (Late st Contact Info) Description 10/16/2023 Refill [facility] - Internal Medicine - [place] [address] [place] [address] Abhay Plascencia MD [address] [facility] [place] [address] Medication Refill Social History Tobacco Use Types Packs/Day Years Used Date Smoking Tobacco: Former Cigarettes 2 31.8 1 992 - 06/07/2023 Passive Smoke Exposure: Current Smokeless Tobacco: Never Comments:Quit for 5 years bu t started again Alcohol Use Standard Drinks/Week Comments Not Currently 0 (1 standard drink = 0.6 oz pure alcohol) Socially 2-3 drinks [place] Hard Lemonades [facility] Utilities Answer Date Recorded In the past 12 months has [employer] electric, gas, oil, or water company threatened [...] often do you attend chur ch or yazidi services? Never 09/09/2023 Do you belong to any clubs o r organizations such as hoahaoism groups, unions, fraternal or athletic groups, or [...] Total Score - Questions 1-9 0 02/2024 [facility] - Occupational Stress Questionnaire Answer Date Recorded [...] Dept 09/09/23 Office [facility] [place] 06/08/23 Office Visit Abhay Plascencia MD [facility] [place] 02/11/23 Office Visit Yenni Jiménez PAC [facility] [place] 11/24/22 Office Visit Abhay Plascencia MD [facility] [place] Showing recent visits within past 365 days and meeting all other requirements Future Appointments Date Type Provider Dept 12/09/23 Appointment Abhay Plascencia MD [facility] [place] Showing future appointments within next 90 days and meeting all other requirements documented in this encounter Plan of Treatment Upcoming Encounters Date Type Department Care Team (Late st Contact Info) Description 01/25/2025 8:45 AM CDT Office Visit [facility] - [facility] - [place] [address] [place] [address] Abhay Plascencia MD [address] [place] [address] documented as of this encounter Visit Diagnoses Not on filedocumented in this encounter Additional Health Concerns Assessment Noted Time PHQ-9 Depression Total Score: 0 09/09/19 10:39 AM TEST DRILLER documented as of this encounter Care Teams Comp Field Case Manager Relationship Specialty Start Date End Date Abhay Plascencia MD [address] [place] [address] PCP - General Internal Medicine 06/26/15 Aguilar Novoa MD [address] [address] Consulting Physician General Surgery 11/11/21 Sanjay Ingram MD [address] [address] Consulting Physician Colon and Rectal Surgery 04/16/22 documented as of this encounter
--- OUTSIDE RECORDS SUMMARY | 2024-11-23 13:48 | XMS_ITS | Encounter Summary ---
Author Organization [facility] Address [address] [place] [address] Phone Care Team Providers Care Forming Mill Operator Name Role Phone Abhay Plascencia MD Primary Care Provider Aguilar Novoa MD Unavailable Sanjay Ingram MD Unavailable Reason for Visit * Reason Comments Medication Refill Encounter Details Date Type Department Care Team (Late st Contact Info) Description 06/12/2020 Refill [facility] - [facility] - [place] [address] [place] [address] Abhay Plascencia MD [address] [facility] [place] [address] Medication Refill Social History Tobacco [...] COVID-19? No / Unsure 06/05/2020 9:04 AM MIXER TENDER documented as of this encounter Miscellaneous Notes * Telephone Encounter - Jennie Donald RN - 06/12/2020 8:15 AM CST Please review and sign. R TENDER documented in this encounter Plan of Treatment Upcoming Encounters Date Type Department Care Team (Late st Contact Info) Description 01/25/2025 8:45 AM CDT Office Visit [facility] [address] [place] [address] Abhay Plascencia MD [address] [facility] [place] [address] documented as of this encounter Visit Diagnoses Not on filedocumented in this encounter Additional Health Concerns Infection Onset Date Last Indicated Resolved Time COVID - 19 09/17/2021 09/17/2021 10/07/2021 12:1 6 AM MIXER TENDER COVID - 19 12/09/2021 12/09/2021 12/29/2021 12:1 6 AM CDT COVID - 19 04/03/2022 04/03/2022 04/13/2022 12:1 6 AM CDT Assessment Noted Time PHQ-9 Depression Total Score: 0 04/30/20 20 2:00 PM CDT documented as of this encounter Care Teams Forming Mill Operator Relationship Specialty Start Date End Date Abhay Plascencia MD [address] [place] [address] PCP - General Internal Medicine 06/26/15 Aguilar Novoa MD [address] [address] Consulting Physician General Surgery 11/11/21 Sanjay Ingram MD [address] [address] Consulting Physician Colon and Rectal Surgery 04/16/22 documented as of this encounter
--- OUTSIDE RECORDS SUMMARY | 2024-11-23 13:48 | XMS_ITS | Encounter Summary ---
Author Organization [facility] Address [address] [place] [address] Phone Care Team Providers Care Energy Attorney Name Role Phone Abhay Plascencia MD Primary Care Provider Aguilar Novoa MD Unavailable Sanjay Ingram MD Unavailable Encounter Details Date Type Department Care Team (Late st Contact Info) Description 01/16/2020 Transcribe Orders [facility] Admitting [address] [place] [address] Doron Valadez MD [address] [address] Heart replaced by transplant (HCC) (Primary Dx) [...] Description 01/25/2025 8:45 AM CDT Office Visit [facility] Medical Group - Internal Medicine - [place] [address] [place] [id number] Abhay Plascencia MD [address] [place] [address] documented as of this encounter Results * TACROLIMUS (2020 2:27 PM CDT) Pathologist [facility] TACROLIMUS/FK50 6 (Prograf) 4.0 ng/mL 01/19/2020 12:39 PM CDT [facility] Blood Venipuncture / Unknown 2020 2:27 PM CDT 2020 4:25 PM CDT Narrative [facility] - 01/19/2020 12:39 PM CDT 12 hour trough target is 5 to 20 ng/mL Performed by CMIA on the Cruz Machine Stemmer us Doron Valadez MD CHEMISTRY ORDERABLES Final R esult [facility] [address] [place] [address], * (ABNORMAL) BASIC METABOLIC PANEL W/ CALCIUM TOTAL (2020 2:27 PM CDT) Pathologist [facility] SODIUM 136 136 - 144 mmol/L 2020 5:26 PM CDT [facility] POTASSIUM 3.8 3.5 - 5.1 mmol/L 2020 5:26 PM CDT [facility] CHLORIDE 98(L) 100 - 110 mmol/L 2020 5:26 PM CDT [facility] CO2, VENOUS 24 22 - 32 mmol/L 2020 5:26 PM CDT [facility] ANION GAP 17.8 8.0 - 20.0 mmol/L 2020 5:26 PM CDT [facility] GLUCOSE 123(H) 70 - 99 mg/dL 2020 5:26 PM CDT [facility] BUN 16 6 - 20 mg/dL 2020 5:26 PM CDT [facility] CREATININE, BLOOD 0.93 0.80 - 1.30 mg/dL 2020 5:26 PM CDT [facility] BUN/CREATININE RATIO 17 12 - 20 ratio 2020 5:26 PM CDT [facility] CALCIUM 9.3 8.9 - 10.3 mg/dL 2020 5:26 PM CDT [facility] GFR, EST. NONAFRICAN >60 >=60 2020 5:26 PM CDT [facility] GFR, EST. >60 >=60 2020 5:26 PM CDT [facility] Comment: Creatinine Clearance is the preferred criteria for selecting drug dose adjustments in renally impaired patients. The GFR is provided as additional pertinent clinical information. GFR is reported in mL/min/1.73 sq m. Blood Venipuncture / Unknown 2020 2:27 PM CDT 2020 4:24 PM CDT us Doron Valadez MD CHEMISTRY ORDERABLES Final R esult [facility] [address] [place] [address] documented in this encounter Visit Diagnoses Diagnosis Heart replaced by transplant (HCC)- Primary Heart replaced by transplant documented in this encounter Additional Health Concerns Infection Onset Date Last Indicated Resolved Time COVID - 19 03/19/2020 03/19/2020 03/22/2020 8:45 AM CDT COVID - 19 09/17/2021 09/17/2021 10/07/2021 12:1 6 AM CANTEEN OPERATOR COVID - 19 12/09/2021 12/09/2021 12/29/2021 12:1 6 AM CDT COVID - 19 04/03/2022 04/03/2022 04/13/2022 12:1 6 AM CDT documented as of this encounter Care Teams Energy Attorney Relationship Specialty Start Date End Date Abhay Plascencia MD [address] [place] [address] PCP - General Internal Medicine 06/26/15 Aguilar Novoa MD [address] [address] Consulting Physician General Surgery 11/11/21 Sanjay Ingram MD [address] [address] Consulting Physician Colon and Rectal Surgery 04/16/22 documented as of this encounter
--- OUTSIDE RECORDS SUMMARY | 2024-11-23 13:48 | XMS_ITS | Encounter Summary ---
Author Organization [facility] Address [address] [place] [address] Phone Care Team Providers Care Certified Master Safecracker Name Role Phone Abhay Plascencia MD Primary Care Provider [phone] Aguilar Novoa MD Unavailable [phone] Sanjay Ingram MD Unavailable Reason for Visit * Reason Comments Medication Refill Encounter Details Date Type Department Care Team (Late st Contact Info) Description 11/05/2023 Refill [facility] Medical Group - Internal Medicine - [place] [address] [place] [address] Abhay Plascencia MD [address] [facility] [place] [address] Medication Refill Social History Tobacco Use Types Packs/Day Years Used Date Smoking Tobacco: Former Cigarettes 2 31.8 1 992 - 06/07/2023 Passive Smoke Exposure: Current Smokeless Tobacco: Never Comments:Quit for 5 years bu t started again Alcohol Use Standard Drinks/Week Comments Not Currently 0 (1 standard drink = 0.6 oz pure alcohol) Socially 2-3 drinks [place] Hard Lemonades [facility] Utilities Answer Date Recorded In the past 12 months has [employer] electric, gas, oil, or water company threatened [...] often do you attend chur ch or latter-day services? Never 09/09/2023 Do you belong to any clubs o r organizations such as samaritan groups, unions, fraternal or athletic groups, or [...] Total Score - Questions 1-9 0 02/2024 [facility] - Occupational Stress Questionnaire Answer Date [...] Dept 09/09/23 [facility] [place] 06/08/23 Office Visit [facility] MD [facility] [place] 02/11/23 Office Visit Jessy YenniMORENITA Coker [facility] [place] 11/24/22 Office Visit Abhay Plascencia MD [facility] [place] Showing recent visits within past 365 [...] [facility] - [place] [address] [place] [address] Abhay Plascencia MD [address] [place] [address] documented as of this encounter Visit Diagnoses Not on filedocumented in this encounter Additional Health Concerns Assessment Noted Time PHQ-9 Depression Total Score: 0 09/09/19 24 10:39 AM PROGRAMMING SPECIALIST documented as of this encounter Care Teams Certified Master Safecracker Relationship Specialty Start Date End Date Abhay Plascencia MD [address] [place] [address] PCP - General Internal Medicine 06/26/15 Aguilar Novoa MD [address] [address] Consulting Physician General Surgery 11/11/21 Sanjay Ingram MD #2 [facility] [address] [place] [address] Consulting Physician Colon and Rectal Surgery 04/16/22 documented as of this encounter
--- OUTSIDE RECORDS SUMMARY | 2024-11-23 13:48 | XMS_ITS | Encounter Summary ---
Author Organization [facility] Address [address] [place] [address] Phone Care Team Providers Care Solar Energy Installation Manager Name Role Phone Abhay Plascencia MD Primary Care Provider Aguilar Novoa MD Unavailable [phone] Sanjay Ingram MD Unavailable Reason for Visit * Reason Comments Medication Refill Encounter Details Date Type Department Care Team (Late st Contact Info) Description 10/30/2022 Refill [facility] - Internal Medicine - [place] [address] [place] [address] Abhay Plascencia MD [address] [facility] [place] [address] Medication Refill Social History Tobacco [...] Description 01/25/2025 8:45 AM CDT [facility] [address] [place] [address] Abhay Plascencia MD [address] [facility] [place] [address] documented as of this encounter Visit Diagnoses Not on filedocumented in this encounter Additional Health Concerns Assessment Noted Time PHQ-9 Depression Total Score: 6 03/19/20 22 1:32 PM CDT documented as of this encounter Care Teams Solar Energy Installation Manager Relationship Specialty Start Date End Date Abhay Plascencia MD [address] [place] [address] PCP - General Internal Medicine 06/26/15 Aguilar Novoa MD [address] [address] Consulting Physician General Surgery 11/11/21 Sanjay Ingram MD [address] [address] Consulting Physician Colon and Rectal Surgery 04/16/22 documented as of this encounter
--- OUTSIDE RECORDS SUMMARY | 2024-11-23 13:48 | XMS_ITS | Encounter Summary ---
Author Organization [facility] Address [address] [place] [address] Phone Care Team Providers Care Barbering Instructor Name Role Phone Abhay Plascencia MD Primary Care Provider Aguilar Novoa MD Unavailable [phone] Sanjay Ingram MD Unavailable Reason for Visit * Reason Comments Medication Refill Encounter Details Date Type Department Care Team (Late st Contact Info) Description 10/03/2023 Refill [facility] Medical Group - Internal Medicine - [place] [address] [place] [address] Abhay Plascencia MD [address] [facility] [place] [place] [address] Medication Refill Social History Tobacco Use Types Packs/Day Years Used Date Smoking Tobacco: Former Cigarettes 2 31.8 1 992 - 06/07/2023 Passive Smoke Exposure: Current Smokeless Tobacco: Never Comments:Quit for 5 years bu t started again Alcohol Use Standard Drinks/Week Comments Not Currently 0 (1 standard drink = 0.6 oz pure alcohol) Socially 2-3 drinks [place] Hard Lemonades [facility] Utilities Answer Date Recorded In the past 12 months has [employer] electric, gas, oil, or water company threatened [...] often do you attend chur ch or pentecostalism services? Never 09/09/2023 Do you belong to any clubs o r organizations such as latter-day groups, unions, fraternal or athletic groups, or [...] Total Score - Questions 1-9 0 02/2024 [facility] - Occupational Stress Questionnaire Answer Date Recorded [...] place to sleep or slept in a halfway (including now)? No 09/09/2023 Education Answer Date [...] 06/08/23 Office Visit Abhay Plascencia MD [facility] [place] Showing recent visits within past 182 days and meeting all other requirements Future Appointments Date Type Provider Dept 12/09/23 Appointment Abhay Plascencia MD [facility] Showing future appointments within next 90 days and meeting all other requirements Passed - Patient has established therapy with Citalopram for at least 6 months BACK COORDINATOR documented in this encounter Plan of Treatment Upcoming Encounters Date Type Department Care Team (Late st Contact Info) Description 01/25/2025 8:45 AM CDT [facility] Visit [facility] - [place] [address] [place] [address] Abhay Plascencia MD [address] [place] [address] documented as of this encounter Visit Diagnoses Not on filedocumented in this encounter Additional Health Concerns Assessment Noted Time PHQ-9 Depression Total Score: 0 09/09/19 10:39 AM LOOKBACK COORDINATOR documented as of this encounter Care Teams Barbering Instructor Relationship Specialty Start Date End Date Abhay Plascencia MD [address] [place] [address] PCP - General Internal Medicine 06/26/15 Aguilar Novoa MD [address] [address] Consulting Physician General Surgery 11/11/21 Sanjay Ingram MD #[address] [address] Consulting Physician Colon and Rectal Surgery 04/16/22 documented as of this encounter
--- OUTSIDE RECORDS SUMMARY | 2024-11-23 13:49 | XMS_ITS | Encounter Summary ---
Author Organization [facility] Address [address] [place] [address] Phone Care Team Providers Care Linseed Oil Refiner Name Role Phone Abhay Plascencia MD Primary Care Provider Aguilar Novoa MD Unavailable [phone] Sanjay Ingram MD Unavailable Encounter Details Date Type Department Care Team (Latest Contact Info) Description 01/27/2022 [facility] Ad[facility] 1 [place] [address] Valentino Pickens MD [address] [address] Heart replaced by transplant (HCC) (Primary Dx) [...] [facility] - [place] [address] [place] [id number] Abhay Plascencia MD [address] [facility] [place] [place] [address] documented as of this encounter Results * (ABNORMAL) BASIC METABOLIC PANEL W/ CALCIUM TOTAL (02/05/2022 7:49 AM CDT) SODIUM 134(L) 136 - 144 mmol/L 02/05/2022 8:55 AM CDT [facility] POTASSIUM 3.8 3.5 - 5.1 mmol/L 02/05/2022 8:55 AM CDT [facility] CHLORIDE 102 100 - 110 mmol/L 02/05/2022 8:55 AM CDT [facility] CO2, VENOUS 21(L) 22 - 32 mmol/L 02/05/2022 8:55 AM CDT [facility] ANION GAP 14.8 8.0 - 20.0 mmol/L 02/05/2022 8:55 AM CDT [facility] GLUCOSE 112(H) 70 - 99 mg/dL 02/05/2022 8:55 AM CDT [facility] BUN 15 6 - 20 mg/dL 02/05/2022 8:55 AM CDT [facility] CREATININE, BLOOD 0.97 0.80 - 1.30 mg/dL 02/05/2022 8:55 AM CDT [facility] BUN/CREATININE RATIO 15 12 - 20 ratio 02/05/2022 8:55 AM CDT [facility] CALCIUM 8.6(L) 8.9 - 10.3 mg/dL 02/05/2022 8:55 AM CDT [facility] GFR, EST. NONAFRICAN >60 >=60 02/05/2022 8:55 AM CDT [facility] GFR, EST. >60 >=60 02/05/2022 8:55 AM CDT [facility] Comment: Creatinine Clearance is the preferred criteria for selecting drug dose adjustments in renally impaired patients. The GFR is provided as additional pertinent clinical information. GFR is reported in mL/min/1.73 sq m. IS THE PATIENT REQUIRED TO BE FASTING? No 02/05/2022 8:55 AM CDT [facility] Blood Venipuncture / Unknown 02/05/2022 7:49 AM CDT 02/05/2022 8:17 AM CDT us Valentino Pickens MD CHEMISTRY ORDERABLES Fin al Result Performing Organization Address City/[facility]/ZIP Co de Phone Number [facility] [address] [place] [address] * TACROLIMUS (02/05/2022 7:49 AM CDT) TACROLIMUS/FK50 6 (Prograf) 7.2 ng/mL [facility] ARCH [id number] F 02/06/2022 7:02 AM CDT [facility] Blood Venipuncture / Unknown 02/05/2022 7:49 AM CDT 02/05/2022 8:16 AM CDT Narrative [facility] - 02/06/2022 7:02 AM CDT 12 hour trough target is 5 to 20 ng/mL Performed by CMIA on the [employer] Senior Java Software Developer us Valentino Pickens MD CHEMISTRY ORDERABLES Fin al Result [facility] [address] [place] [address], [place] * RAPAMYCIN (SIROLIMUS) LEVEL (02/05/2022 7:49 AM CDT) RAPAMYCIN, BLOOD 5.2 4.5 - 14.0 ng/mL [facility] ARCH [id number] F 02/06/2022 12:42 PM CDT [facility] Blood Venipuncture / Unknown 02/05/2022 7:49 AM CDT 02/05/2022 8:16 AM CDT Narrative [facility] - 02/06/2022 12:42 PM CDT Performed by CMIA on the [employer] Senior Java Software Developer us Valentino Pickens MD CHEMISTRY ORDERABLES Fin al Result [facility] [address] [place] [address], documented in this encounter Visit Diagnoses Diagnosis Heart replaced by transplant (HCC)- Primary Heart replaced by transplant documented in this encounter Additional Health Concerns Infection Onset Date Last Indicated Resolved Time COVID - 19 04/03/2022 04/03/2022 04/13/2022 12:1 6 AM CDT Assessment Noted Time PHQ-9 Depression Total Score: 0 06/13/20 21 11:00 AM WARE TESTER documented as of this encounter Care Teams Linseed Oil Refiner Relationship Specialty Start Date End Date Abhay Plascencia MD [address] [place] [address] PCP - General Internal Medicine 06/26/15 Aguilar Novoa MD [address] [address] Consulting Physician General Surgery 11/11/21 Sanjay Ingram MD #[address] [address] Consulting Physician Colon and Rectal Surgery 04/16/22 documented as of this encounter
--- OUTSIDE RECORDS SUMMARY | 2024-11-23 13:49 | XMS_ITS | Clinical Summary ---
Author Organization [facility] Address [address] [place] [address] Phone Care Team Providers Care Assistant Customer Service Manager Name Role Phone Abhay Plascencia MD Primary Care Provider Aguilar Novoa MD Unavailable [phone] Sanjay Ingram MD Unavailable Allergies Active Allergy [...] Active VITAMIN D PO Take by mouth. Active Cyanocobalamin (VITAMIN B12 PO) Take by mouth. Active rosuvastatin (CRESTOR) 20 MG Tablet Take 1 [...] Erectile Dysfunction. 30 Tablet 09/09/19 24 Active Dilt-XR 120 MG CAPSULE SR 24 HRIndications: Essential hypertension, benign TAKE 1 CAPSULE BY MOUTH DAILY 90 Capsule 1 09/19/19 25 Active citalopram (CeleXA) 20 MG Tablet TAKE 1 AND 1/2 TABLETS BY MOUTH DAILY 135 Tablet 10/04/19 25 Active omeprazole (PriLOSEC) 20 MG CAPSULE DELAYED RELEASE Take 1 Capsule by mouth 2 times daily. 180 Capsule 11/04/19 25 Active tamsulosin (FLOMAX) 0.4 MG Capsule TAKE 1 CAPSULE BY MOUTH EVERY DAY 90 Capsule 1 11/22/19 25 Active tamsulosin (FLOMAX) 0.4 MG Capsule Take 1 Capsule by mouth daily. 30 Capsule 3 08/25/19 25 025 Discontinued omeprazole (PriLOSEC) 20 MG CAPSULE DELAYED RELEASE TAKE 1 CAPSULE BY MOUTH TWICE DAILY 180 Capsule 10/04/19 25 025 Discontinued(Re order) omeprazole (PriLOSEC) 20 MG CAPSULE DELAYED RELEASE Take 1 Capsule by mouth 2 times daily. 180 Capsule 11/01/19 25 025 Discontinued(Re order) Active Problems Problem Noted Date Diagnosed Date Chronic bilateral low back pain without sciatica 03/17/2024 Chronic left shoulder pain 03/17/2024 Hyperglycemia 12/16/2023 Bilateral lower extremity edema 11/24/2022 Tobacco use 09/24/2022 Other male erectile dysfunction 06/13/2021 Essential hypertension, benign 03/08/2021 Other hyperlipidemia 03/08/2021 Coronary artery disease invo lving akhi[place] coronary artery of [place] heart without angina pectoris 03/08/2021 Overview (08/25/2024): Stent x 2- 2021, Stent x 1- 2024 Dysthymia 03/08/2021 H/O heart transplant 03/08/2021 Mild intermittent asthma without complication GERD without esophagitis 03/08/2021 Resolved Problems Problem Noted Date Diagnosed Date Resolved Date Acute kidney injury 06/05/2023 09/09/19 24 Pyelonephritis 06/04/2023 09/09/2023 Centrilobular emphysema 09/24/2022 11/0 01/2023 Encounters Date Type Department Care Team Description 11/21/2024 Refill [facility] [address] [place] [address] Abhay Plascencia MD Medication Refill 11/03/2024 Refill [facility] [address] [place] [address] Abhay Plascencia MD 10/31/2024 Refill [facility] [address] [place] [id number] Abhay Plascencia MD Medication Refill 10/28/2024 Documentation Only [facility] [address] [place] [address] Abhay Plascencia MD 10/24/2024 9:00 AM CDT Office Visit [facility] [address] [place] [address] Abhay Plascencia MD Essential hypertension, benign (Primary Dx); Other hyperlipidemia; Coronary artery disease involving akhi[place] coronary artery of [place] heart without angina pectoris; Mild intermittent asthma without complication; GERD without esophagitis; Dysthymia; Acute right-sided low back pain without sciatica Discharge Disposition: Discharged to home or Selfcare 10/24/2024 Travel 10/03/2024 Refill [facility] [address] [place] [id number] Yenni Jiménez, [facility] Medication Refill 09/18/2024 Refill [facility] [address] [place] [address] Abhay Plascencia MD Medication Refill 08/25/2024 9:00 AM NURSES DIRECTOR Office Visit [facility] Internal Medicine [facility] [address] [place] [address] Abhay Plascencia MD Essential hypertension, benign (Primary Dx); Coronary artery disease involving akhi[place] coronary artery of [place] heart without angina pectoris; Urinary urgency; Other hyperlipidemia; Mild intermittent asthma without complication; GERD without esophagitis; Dysthymia Discharge Disposition: Discharged to home or Selfcare 08/25/2024 Results Follow-Up [facility] Internal [facility] [address] [place] [address] Abhay Plascencia MD POCT UA NON-AUTOMATED W/O MICRO 08/25/2024 Travel from Last 3 Months Immunizations Immunization Administration Dates Next Due Hepatitis B Vaccine 03/21/2005,02/18/2005 Influenza Vaccine 04/08/2016 Influenza Vaccine, MDCK,quad rivalent, pres free 05/26/2019 Influenza Vaccine, Quadrivalent, PF 11/10/2022,06/23/2022,06/13/2021,04/30,04/17/2018 Influenza Vaccine,unspecifie d Formulation 05/17/2021 Influenza, Injectable, Quadrivalent 05/20/2015 Influenza, Seasonal, Injecta ble, Undefined 04/19/2017 Influenza,Split Virus,Trivalent,Injectable,PF 06/20/2024 Pneumococcal Vaccine Adult - 23 Valent 4 Pneumococcal conjugate PCV20 , polysaccharide [id number] conjugate, adjuvant, PF 03/19/2022 TDAP Vaccine 11/14/2016 Family History Medical History Relation Name Comments Other-comment Brother 1 Hema DVT to leg No Known Problems Brother 2 Fadi Diabetes Father Heart Disease Father Stroke Father Heart Attack Mother Pacemaker Mother No Known Problems Sister Margot Relation Name Status Comments Brother 1 Hema Alive Brother 2 [place] Alive Father Mother Sister Margot Alive Social History Tobacco Use Types Packs/Day Years Used Date Smoking Tobacco: Former Cigarettes 2 31.8 1 992 - 06/07/2023 Passive Smoke Exposure: Current Smokeless Tobacco: Never Tobacco Cessation:Counseling Given: No Comments:Quit for 5 years but started again Alcohol Use Standard Drinks/Week Comments Not Currently 0 (1 standard drink = 0.6 oz pure alcohol) Socially 2-3 drinks [place] [facility] Utilities Answer Date Recorded In the past 12 months has th e electric, gas, oil, or water company threatened to shut off services in your home? No 10/24/2024 Social Connection and Isolation Panel [NHANES] A nswer Date Recorded In a typical week, how many times do you talk on the phone with family, friends, or neighbors? Three times a week 10/25/19 How often do you get togethe r with friends or relatives? Once a week 10/24/2024 How often do you attend chur ch or yazidism services? Never 10/24/2024 Do you belong to any clubs o r organizations such as caodaism groups, unions, fraternal or athletic groups, or [...] Total Score - Questions 1-9 0 08/04 [facility] [place] of Occupat ional Health - Occupational Stress [...] health care facility (including now)? No 09/09/2023 Housing Stability Vital Sign Answer Jairon e Recorded In the last 12 months, was t here a time when you were not able to pay the mortgage or rent on time? No 10/24/2024 Number of Times Moved in the Last Year Not on fi le 10/24/2024 At any time in the past [address] [facility], were you homeless or living in a [place] health care facility (including now)? No 10/24/2024 Education Answer Date [...] [facility] [place] [address] [place] [address] Abhay Plascencia MD [address] [place] [address] Health Maintenance Due Date Last Done Comments [...] Comments CULTURE - MISCELLANEOUS 10/08/2024 12:00 AM NURSES DIRECTOR CULTURE - MISCELLANEOUS 10/08/2024 12:00 AM NURSES DIRECTOR CULTURE - MISCELLANEOUS 10/08/2024 12:00 AM NURSES DIRECTOR POCT UA NON-AUTOMATED W/O MICRO Routine 08/25/2024 9:10 AM NURSES DIRECTOR Urinary urgency COLOGUARD Routine 08/14/2022 10:40 AM NURSES DIRECTOR Screening for colorectal cancer from Last 3 Months or Most Recently Relevant to Health Maintenance Results * CULTURE - MISCELLANEOUS (10/08/2024 12:00 AM NURSES DIRECTOR) Only the most recent of3 resultswithin the time period is included. 10/08/2024 us Provider Scan MICROBIOLOGY - GENERAL ORDERABLE S Final Result SCAN * (ABNORMAL) POCT UA NON-AUTOMATED W/O MICRO (08/25/2024 9:10 AM NURSES DIRECTOR) POC UA SPECIFIC GRAVITY 1.025 URINE PH [...] URINE CLARITY Slightly Hazy 08/25/2024 9:10 AM NURSES DIRECTOR Abhay Plascencia MD POINT OF CARE TESTING (MANU AL) Final Result * COLOGUARD (08/14/2022 10:40 AM NURSES DIRECTOR) Cologuard Negative Negative [facility] Comment: NEGATIVE TEST RESULT. A [...] (Vance Cunningham al, N Engl J Med 2014;370(14):5813-3888) The normal value (reference range) for this assay is negative. COLOGUARD RE-SCREENING RECOMMENDATION: Periodic colorectal cancer screening is an important part of preventive healthcare for asymptomatic individuals at average risk for colorectal cancer. Following a negative Cologuard result, the [place] [employer] Society and U.S. Multi-Society Task Force screening guidelines recommend a Cologuard re-screening interval of 3 years. References: [place] [employer] Guideline for Colorectal Cancer Screening: https://www.cancer.org/cancer/ohdpt-wyayym-rdcfgp/lmzjsntgl-ewrxaiuwn-wxbughs/ acs-recommendations.html.; Fidel DK, Jean Claude CR, Ricardo CuetoK, Colorectal Cancer Screening: Recommendations for Physicians and Patients from the U.S. Multi-Society Task Force on Colorectal Cancer Screening , Am J Gastroenterology 2017; 112:7488-3193. TEST DESCRIPTION: Composite algorithmic analysis of stool [...] Davis et al, N Engl J Med 2014;370(14):5159-6577.) Cologuard may produce a false negative or false positive result (no colorectal cancer or precancerous polyp present at colonoscopy follow up). A negative Cologuard test result does not guarantee the absence of CRC or advanced adenoma (pre-cancer). The current Cologuard screening interval is every 3 years. ([place] Cancer Society and U.S. Multi-Society Task Force). Cologuard performance data in a 10,000 patient pivotal study using colonoscopy as the reference method can be accessed at the following location: www.[facility].[employer]/results. Additional description of the Cologuard test process, warnings and precautions can be found at www.[employer]. Stool 08/14/2022 10:4 0 AM NURSES DIRECTOR 08/16/2022 9:40 AM NURSES DIRECTOR Abhay Plascencia MD BODY FLUIDS & STOOLS ORDERA BLES Final Result [facility] [address] [place] [address], [place] [address] [address] from Last 3 Months or Most Recently [...] measures to stabilize the patient. Care Teams Assistant Customer Service Manager Relationship Specialty Start Date End Date Abhay Plascencia MD [address] [place] [address] PCP - General Internal Medicine 06/26/15 Aguilar Novoa MD [address] [address] Consulting Physician General Surgery 11/11/21 Sanjay Ingram MD [address] [address] Consulting Physician Colon and Rectal Surgery 04/16/22
--- OUTSIDE RECORDS SUMMARY | 2024-11-23 13:49 | XMS_ITS | Encounter Summary ---
Author Organization [facility] Address [address] [place] [address] Care Team Providers Care Customer Support Associate Name Role Phone Abhay Plascencia MD Primary Care Provider [phone] Bhavesh Chin RN Unavailable [phone] Analilia Harris MD Unavailable [phone] Encounter Details Date Type Department Care Team (Late st Contact Info) Description 01/19/2023 Telephone [facility] [address] [facility] [address] [place] [address] Abhay Plascencia MD [address] [place] [address] Social History Tobacco Use Types [...] on file Legal Sex Male 1:54 AM PRINT SUPPORT SPECIALIST Gender Identity Not on file Sexual Orientation Not on file documented as of this encounter Plan of Treatment Not on file documented as of this encounter Visit Diagnoses Not on filedocumented in this encounter Care Teams Customer Support Associate Relationship Specialty Start Date End Date Abhay Plascencia MD [address] [place] [address] PCP - General 05/28/17 hBavesh Chin, RN [address] [address] Bundles Hanger 07/26/18 Analilia Harris MD [address] [address] Consulting Physician Gastroenterology 04/28/21 documented as of this encounter
--- OUTSIDE RECORDS SUMMARY | 2024-11-23 13:49 | XMS_ITS | Encounter Summary ---
Author Organization [facility] Address [address] [place] [address] Phone Care Team Providers Care Preload Supervisor Name Role Phone Abhay Plascencia MD Primary Care Provider [phone] Bhavesh Chin RN Unavailable [phone] Analilia Harris MD Unavailable [phone] Encounter Details Date Type Department Care Team (Late st Contact Info) Description 12/03/2022 Telephone [facility] Cardiology [address] 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
--- OUTSIDE RECORDS SUMMARY | 2024-11-23 13:49 | XMS_ITS | Encounter Summary ---
Author Organization [facility] Address [address] [place] [address] Phone Care Team Providers Care Bankruptcy Legal Assistant Name Role Phone Abhay Plascencia MD Primary Care Provider [phone] Bhavesh Chin RN Unavailable [phone] Analilia Harris MD Unavailable [phone] Encounter Details Date Type Department Care Team (Late st Contact Info) Description 05/19/2023 Telephone [facility] Cardiology [address] [facility] 8th [place] [address] [place] [address] Avani Razo Social History Tobacco [...] on file Legal Sex Male 1:54 AM PHOTO MASK PROCESSOR Gender Identity Not on file Sexual Orientation Not on file documented as of this encounter Plan of Treatment Not on file documented as of this encounter Visit Diagnoses Not on filedocumented in this encounter Care Teams Bankruptcy Legal Assistant Relationship Specialty Start Date End Date Abhay Plascencia MD [address] [place] [address] PCP - General 05/28/17 Bhavesh Chin RN [address] [address] Field Services Analyst 07/26/18 Analilia Harris MD [address] [address] Consulting Physician Gastroenterology 04/28/21 documented as of this encounter
== END 2024-11-23 12:36 | disposition home or self-care (01) ==
PROVIDERS: Emergency Provider Nurse Practitioner Family; PCP Internal Medicine
DX: J02.9 Acute pharyngitis, unspecified (principal); F17.210 Nicotine dependence, cigarettes, uncomplicated; C95.90 Leukemia, unspecified not having achieved remission; J45.909 Unspecified asthma, uncomplicated; I10 Essential (primary) hypertension; E78.00 Pure hypercholesterolemia, unspecified; K21.9 Gastro-esophageal reflux disease without esophagitis; F41.9 Anxiety disorder, unspecified; Z94.1 Heart transplant status; Z95.5 Presence of coronary angioplasty implant and graft; Z79.82 Long term (current) use of aspirin
CPT/HCPCS: 87081; 87880; 99213; G0463